=== PATIENT | male | born 1945 | race Caucasian/White ===

== ENCOUNTER 2019-07-02 12:29 | Emergency (ER) | payer OTHER, BC ==
[2019-07-02 13:08] VITALS: BP 178/90; PULSE 95; TEMP 98.3; BMI 32.4
--- NOTE | 2019-07-02 13:37 | PDOC ---
History of Present Illness - General Chief Complaint: Injury Stated Complaint: LEG INJURY Time Seen by Provider: 07/02/19 12:30 - History of Present Illness Initial Comments: 07/02/19 13:35 74yo M hx HTN, HL, DM, emphysema, asthma, hip replacement b/l, CAD s/p stent presents to the ED c/o injury to L leg. Pt sustained injury after closing the car door accidentally on his leg 30 mins [employer]. Pain is "throbbing." No treatments tried. No other injuries. No fall. Wound is not actively bleeding after pt placed pressure. Pt takes plavix. Does not remember last tdap. PT was otherwise in his [facility], denies recent fevers, chills, CP, SOB, weakness, dizziness, numbness, N/V/D, abd pain, urinary sxs. Past History - Past Medical History Allergies/Adverse Reactions: Allergies Allergy/AdvReac Type Severity Reaction Status Date / Time Penicillins Allergy Intermediate Hives Verified 07/02/19 12:57 Home Medications: Ambulatory Orders Albuterol Sulfate [Proair Hfa] 8.5 gm IH TID PRN 07/02/19 Allopurinol [Zyloprim -] 300 mg PO HS 07/02/19 Atorvastatin Ca [Lipitor] 40 mg PO HS 07/02/19 Budesonide [Pulmicort Flexhaler] 90 mcg IH BID 07/02/19 Clopidogrel Bisulfate [Clopidogrel] 75 mg PO DAILY 07/02/19 Dapagliflozin Propanediol [Farxiga] 20 mg PO DAILY 07/02/19 Dulaglutide [Trulicity] 1.5 mg SQ WEEKLY 07/02/19 Fluticasone/Salmeterol [Advair 250-50 Diskus] 1 each IH DAILY 07/02/19 Metoprolol Succinate [Toprol Xl -] 50 mg PO HS 07/02/19 Montelukast Na [Singulair -] 10 mg PO HS 07/02/19 Nifedipine [Procardia Xl] 30 mg PO DAILY 07/02/19 Quinapril HCl 20 mg PO HS 07/02/19 Sulfamethoxazole/Trimethoprim [Bactrim Ds Tablet] 1 each PO BID #20 tablet 07/02 Theophylline Anhydrous 150 mg PO BID 07/02/19 Torsemide [Demadex] 20 mg PO DAILY 07/02/19 Cardiac Disorders: Yes (cardiac stentx1) COPD: Yes Diabetes: Yes HTN: Yes Hypercholesterolemia: Yes Kidney Stones: Yes - Surgical History Cardiac Surgery: Yes (STENT X1) Orthopedic Surgery: Yes - Suicide/Smoking/Psychosocial Hx Smoking History: Former smoker Have you smoked in the past 12 months: No If you are a former smoker, when did you quit?: 1991 Information on smoking cessation initiated: No Hx Alcohol Use: No Drug/Substance Use Hx: No Review of Systems - Review of Systems Comments:: 07/02/19 13:44 GENERAL/CONSTITUTIONAL: No fever or chills. No weakness. HEAD, EYES, EARS, NOSE AND THROAT: No change in vision. No ear pain or discharge. No sore throat. GASTROINTESTINAL: No nausea, vomiting, diarrhea or constipation. GENITOURINARY: No dysuria, frequency, or change in urination. CARDIOVASCULAR: No chest pain or shortness of breath. RESPIRATORY: No cough, wheezing, or hemoptysis. MUSCULOSKELETAL: +injury to L leg. No neck or back pain. SKIN: No rash NEUROLOGIC: No headache, vertigo, loss of consciousness, or change in strength/ sensation. ENDOCRINE: No increased thirst. No abnormal weight change. HEMATOLOGIC/LYMPHATIC: No anemia, easy bleeding, or history of blood clots. ALLERGIC/IMMUNOLOGIC: No hives or skin allergy. *Physical Exam - Vital Signs Last Vital Signs Temp Pulse Resp BP Pulse Ox 98.3 F 95 H 18 178/90 H 95 07/02/19 12:30 07/02/19 12:30 07/02/19 12:30 07/02/19 12:30 07/02/19 12:30 - Physical Exam Comments: 07/02/19 13:45 GENERAL: Awake, alert, and fully oriented, in no acute distress HEAD: No signs of trauma EYES: EOMI, sclera anicteric, conjunctiva clear ENT: Oropharynx clear without exudates. Moist mucosa LUNGS: Breath sounds equal, clear to auscultation bilaterally. No wheezes, and no crackles HEART: Regular rate and rhythm, normal S1 and S2, no murmurs, rubs or gallops ABDOMEN: Soft, nontender, normoactive bowel sounds. No guarding, no rebound. No masses EXTREMITIES: Normal range of motion, no edema. No clubbing or cyanosis. No cords, erythema, or tenderness. No deformities. 2+ DP pulses and TP pulses in LE b/l. Compartments soft in LLE NEUROLOGICAL: Normal speech, cranial nerves intact, 5/5 strength dorsi and plantar flexion of L foot. Normal sensation to LLE. SKIN: Anteriorolateral distal lower extremity with 6.5cm linear superficial vertical laceration, poorly approximated due to tension, hemostatic, clean. Procedures - Laceration/Wound Repair Left Anterior Lateral Leg Wound Length: 5.0 to 7.5 cm Wound Explored: clean Wound's Depth, Shape: linear Irrigated w/ Saline: Yes Anesthesia: 1% Lidocaine Amount of Anesthetic (ccs): 10 Wound Debrided: minimal Wound Repaired With: Sutures Suture Size/Type: 4:0 Number of Sutures: 1 (Running locked suture, used 2 sets of suture due to length of laceration) Layer Closure: No Sterile Dressing Applied: Yes Splint Applied: No Sling Applied: No Medical Decision Making - Medical Decision Making 07/02/19 13:54 74yo M prsents to the ED with LLE laceration 2/2 closing car door on leg LLE is NVI with soft compartments Plan for XR to r/o FB, wound irrigation and laceration repair tdap will be updated 07/02/19 16:24 XR negative for FB Laceration irrigated copiously under pressure 10cc of 1% lidocaine given SQ for local anesthesia Wound was poorly approximated under tension, as such a running locking stitch was applied with good approximation bacitracin applied, wound dressed with gauze and tape Pt to return in 10 days for suture removal He is clinically stable for DC home I discussed the physical exam findings, ancillary test results and final diagnoses with the patient. I answered all of the patient's questions. The patient was satisfied with the care received and felt comfortable with the discharge plan and treatment plan. The patient will call their primary care physician within 24 hours to arrange follow-up and will return to the Emergency Department with any new, persistent or worsening symptoms. *DC/Admit/Observation/Transfer Diagnosis at time of Disposition: Laceration, Leg injury, Trauma - Discharge Dispostion Disposition: HOME Condition at time of disposition: Good Decision to Admit order: No - Prescriptions Prescriptions: Sulfamethoxazole/Trimethoprim [Bactrim Ds Tablet] 1 each PO BID #20 tablet - Referrals Referrals: Rodrigo Harvey MD [Primary Care Provider] - - Patient Instructions Printed Discharge Instructions: DI for Laceration Repair, DI for Laceration Repair -- Complex Suture Additional Instructions: Return in 10 days for suture removal Take the antibiotics as prescribed Keep the incision clean and dry for 24 hours. After 24 hours, you may allow the soap and water to rinse off your incision. Avoid direct pressure of the water to the incision. Pat the incision dry with a clean clothe. Apply a small amount of bacitracin onto the incision. Cover the incision loosely with some gauze and tape Take tylenol as needed for pain. Return to the ER if you notice red streaks, increase redness/swelling/severe pain to the incision. - Post Discharge Activity - Attestations Physician Attestion: 07/02/19 16:37 I, Dr. Charles Arvizu MD, attest that this document has been prepared under my direction and personally reviewed by me in its entirety. I further attest, that it accurately reflects all work, treatment, procedures and medical decision -making performed by me.
[2019-07-02] MEDS ORDERED: DIPHTH,PERTUSS(ACELL),TET 0.5 ML DISP.SYRIN IM ONE ×2 (13:43→13:50)
[2019-07-02] MEDS ORDERED: LIDOCAINE HCL 1%, 10 MG/ML (20ML VIAL) ONE (15:13)
== END 2019-07-02 16:50 | disposition home or self-care (01) ==
LOC: FER 12:29
PROC: 0HQLXZZ Repair Left Lower Leg Skin, External Approach (ICD-10-PCS; principal; 2019-07-02)
PROC: 3E0234Z Introduction of Serum, Toxoid and Vaccine into Muscle, Percutaneous Approach (ICD-10-PCS; 2019-07-02)
DX: S81.812A Laceration without foreign body, left lower leg, initial encounter (principal); S89.92XA Unspecified injury of left lower leg, initial encounter; I10 Essential (primary) hypertension; I25.10 Atherosclerotic heart disease of native coronary artery without angina pectoris; E78.5 Hyperlipidemia, unspecified; E11.9 Type 2 diabetes mellitus without complications; J43.9 Emphysema, unspecified; J45.909 Unspecified asthma, uncomplicated; Z96.643 Presence of artificial hip joint, bilateral; Z95.5 Presence of coronary angioplasty implant and graft; Z87.891 Personal history of nicotine dependence; Z88.0 Allergy status to penicillin; W23.0XXA Caught, crushed, jammed, or pinched between moving objects, initial encounter; Y93.89 Activity, other specified; Y92.9 Unspecified place or not applicable
CPT/HCPCS: 73590-TC-LT-FY; 90715; 99282-25

== ENCOUNTER 2019-07-17 17:28 | Emergency (ER) | payer OTHER, BC ==
[2019-07-17 17:43] VITALS: BP 146/81; PULSE 104; TEMP 98; BMI 34.5
--- NOTE | 2019-07-17 18:37 | PDOC ---
Documentation entered by Cholo Bassett SCRIBE, acting as scribe for Jaguar Macedo MD. Jaguar Macedo MD: This documentation has been prepared by the Danyelle anderson Xhesika, SCRIBE, under my direction and personally reviewed by me in its entirety. I confirm that the documentation accurately reflects all work, treatment, procedures, and medical decision making performed by me. History of Present Illness - General Chief Complaint: Injury Stated Complaint: SLICED TIP OF RIGHT RING FINGER History Source: Patient Exam Limitations: No Limitations - History of Present Illness Initial Comments: 07/17/19 18:32 The patient is a 74 year old male with a significant PMH of HTN, HL, DM, emphysema, asthma, b/l hip replacement, CAD s/p stent who presents to the emergency department for R hand 4th digit laceration since 7:30AM. Patient states he was cutting eggplants and sliced the top of his finger off. The patient notes he applied pressure to his finger and wrapped it, however, it has not stopped bleeding. Patient notes he is on plavix. Patient notes he had his tetanus booster 07/02/19. The patient denies chest pain, shortness of breath, headache and dizziness. Allergies: NKDA Surgical History: cardiac stent x1 PCP: Guillaume Bond Past History - Past Medical History Allergies/Adverse Reactions: Allergies Allergy/AdvReac Type Severity Reaction Status Date / Time Penicillins Allergy Intermediate Hives Verified 07/17/19 17:30 Home Medications: Ambulatory Orders Albuterol Sulfate [Proair Hfa] 8.5 gm IH TID PRN 07/02/19 Allopurinol [Zyloprim -] 300 mg PO HS 07/02/19 Atorvastatin Ca [Lipitor] 40 mg PO HS 07/02/19 Budesonide [Pulmicort Flexhaler] 90 mcg IH BID 07/02/19 Clopidogrel Bisulfate [Clopidogrel] 75 mg PO DAILY 07/02/19 Dapagliflozin Propanediol [Farxiga] 20 mg PO DAILY 07/02/19 Dulaglutide [Trulicity] 1.5 mg SQ WEEKLY 07/02/19 Fluticasone/Salmeterol [Advair 250-50 Diskus] 1 each IH DAILY 07/02/19 Metoprolol Succinate [Toprol Xl -] 50 mg PO HS 07/02/19 Montelukast Na [Singulair -] 10 mg PO HS 07/02/19 Nifedipine [Procardia Xl] 30 mg PO DAILY 07/02/19 Quinapril HCl 20 mg PO HS 07/02/19 Sulfamethoxazole/Trimethoprim [Bactrim Ds Tablet] 1 each PO BID #20 tablet 07/02 Theophylline Anhydrous 150 mg PO BID 07/02/19 Torsemide [Demadex] 20 mg PO DAILY 07/02/19 Cardiac Disorders: Yes (cardiac stentx1) COPD: Yes Diabetes: Yes HTN: Yes Hypercholesterolemia: Yes Kidney Stones: Yes - Surgical History Cardiac Surgery: Yes (STENT X1) Orthopedic Surgery: Yes - Immunization History Immunization Up to Date: Yes - Psycho Social/Smoking Cessation Hx Smoking History: Former smoker Have you smoked in the past 12 months: No If you are a former smoker, when did you quit?: 27 YEARS Information on smoking cessation initiated: No Hx Alcohol Use: No Drug/Substance Use Hx: No Review of Systems - Review of Systems Able to Perform ROS?: Yes Comments:: 07/17/19 18:33 GENERAL/CONSTITUTIONAL: No fever or chills. No weakness. HEAD, EYES, EARS, NOSE AND THROAT: No change in vision. No ear pain or discharge. No sore throat. CARDIOVASCULAR: No chest pain or shortness of breath. RESPIRATORY: No cough, wheezing, or hemoptysis. GASTROINTESTINAL: No nausea, vomiting, diarrhea or constipation. GENITOURINARY: No dysuria, frequency, or change in urination. MUSCULOSKELETAL: + R hand 4th digit laceration. No joint or muscle swelling or pain. No neck or back pain. SKIN: No rash NEUROLOGIC: No headache, vertigo, loss of consciousness, or change in strength/ sensation. ENDOCRINE: No increased thirst. No abnormal weight change. HEMATOLOGIC/LYMPHATIC: No anemia, easy bleeding, or history of blood clots. ALLERGIC/IMMUNOLOGIC: No hives or skin allergy. *Physical Exam - Vital Signs Last Vital Signs Temp Pulse Resp BP Pulse Ox 98 F 104 H 18 146/81 96 07/17/19 17:30 07/17/19 17:30 07/17/19 17:30 07/17/19 17:30 07/17/19 17:30 - Physical Exam Comments: 07/17/19 18:33 GENERAL: Awake, alert, and fully oriented, in no acute distress LUNGS: Breath sounds equal, clear to auscultation bilaterally. No wheezes, and no crackles HEART: Regular rate and rhythm, normal S1 and S2, no murmurs, rubs or gallops ABDOMEN: Soft, nontender, normoactive bowel sounds. No guarding, no rebound. No masses EXTREMITIES: + degloved R hand 4th distal finger. + active bleeding. Normal range of motion, no edema. No clubbing or cyanosis. No cords, erythema, or tenderness NEUROLOGICAL: Cranial nerves II through XII grossly intact. Normal speech, normal gait SKIN: Warm, Dry, normal turgor, no rashes Medical Decision Making - Medical Decision Making 07/17/19 18:27 Patient's R hand 4th distal finger was cleaned. Surgicel and pressure dressing was placed on finger. Discharge - Discharge Information Problems reviewed: Yes Clinical Impression/Diagnosis: Laceration Condition: Improved Disposition: HOME - Admission No - Additional Discharge Information Prescription Drug Monitoring Program (I-STOP) results: I-STOP reviewed and no issues identified - Follow up/Referral Referrals: Guillaume Orta [Primary Care Provider] - - Patient Discharge Instructions Patient Printed Discharge Instructions: DI for Laceration Repair Additional Instructions: Clean and dry, change dressing if wet or dirty, otherwise wound check here in the ER by July 21 - Post Discharge Activity
== END 2019-07-17 18:40 | disposition home or self-care (01) ==
LOC: FER 17:28
PROC: 0HQFXZZ Repair Right Hand Skin, External Approach (ICD-10-PCS; principal; 2019-07-17)
DX: S61.214A Laceration without foreign body of right ring finger without damage to nail, initial encounter (principal); Z87.891 Personal history of nicotine dependence; Z95.5 Presence of coronary angioplasty implant and graft; E78.00 Pure hypercholesterolemia, unspecified; E11.9 Type 2 diabetes mellitus without complications; I10 Essential (primary) hypertension; N20.0 Calculus of kidney; Z88.0 Allergy status to penicillin; I25.10 Atherosclerotic heart disease of native coronary artery without angina pectoris; W26.0XXA Contact with knife, initial encounter; Y93.G1 Activity, food preparation and clean up; Y92.000 Kitchen of unspecified non-institutional (private) residence as the place of occurrence of the external cause
CPT/HCPCS: 12001-25; 99282-25

== ENCOUNTER 2019-07-21 10:24 | Emergency (ER) | payer OTHER, BC ==
--- NOTE | 2019-07-21 10:50 | PDOC ---
*Physical Exam - Physical Exam Comments: 07/21/19 10:44 GENERAL: The patient is awake, alert, and fully oriented, in no acute distress. HEAD: Normal with no signs of trauma. EYES: Pupils equal, round and reactive to light, extraocular movements intact, sclera anicteric, conjunctiva clear. EXTREMITIES: Right hand: Fourth digit with bandage in place, removed exposing 1 cm distal fingertip superficial avulsion with involvement of the distal nail but not the nailbed, still fresh wound but without any active bleeding, some coagulated blood in place. Neurovascularly intact, range of motion is intact. There is no evidence of cellulitis or swelling. NEUROLOGICAL: Normal speech, normal gait. PSYCH: Normal mood, normal affect. SKIN: Warm, Dry, normal turgor, no rashes or lesions noted. Medical Decision Making - Medical Decision Making 07/21/19 10:46 74-year-old male on Plavix resents for wound check of right fourth digit distal fingertip superficial avulsion sustained on 07/17, seen in the emergency department at that time and Surgicel dressing applied, presented for wound check as instructed. No complaints of bleeding beyond the first day, no complaints of swelling or erythema or fevers or chills or pain. Maintain original dressing until today. Patient is well-appearing and vital signs are normal, well-appearing wounds without evidence of infection or neurovascular compromise. Xeroform dressing applied, gauze bandage placed, patient will continue to monitor with every 72 hour dressing changes. Understands return criteria. Discharge - Discharge Information Problems reviewed: Yes Clinical Impression/Diagnosis: Encounter for post-traumatic wound check Condition: Good Disposition: HOME - Follow up/Referral Referrals: Rodrigo Harvey MD [Primary Care Provider] - - Patient Discharge Instructions Patient Printed Discharge Instructions: DI for Avulsion Laceration (Not Requiring Sutures) Additional Instructions: Activity as tolerated. Stay hydrated. Maintain current dressing for 2 to 3 days , then perform dressing changes every 2 days with bacitracin. If the wound remains fresh/wet, use Xeroform as provided directly on the wound. Keep the wound clean and dry without soaking or scrubbing. Continue your medications as previously prescribed by your physician. You should follow up with your primary doctor as needed regarding today's emergency department visit. Return to the emergency department for any new or concerning symptoms, particularly persistent bleeding or pain, redness or swelling or pus, fevers or chills. - Post Discharge Activity
[2019-07-21 10:54] VITALS: BP 130/70; PULSE 89; TEMP 98; BMI 33.5
== END 2019-07-21 10:54 | disposition home or self-care (01) ==
LOC: FER 10:24
DX: Z48.00 Encounter for change or removal of nonsurgical wound dressing (principal)
CPT/HCPCS: 99281-25

== ENCOUNTER 2019-10-29 15:21 | Inpatient (IN) | payer OTHER, BC ==
[2019-10-29] MEDS ORDERED: SODIUM CHLORIDE IV ONE (15:49)
[2019-10-29] MEDS ORDERED: ACETAMINOPHEN INJECTION 100 ML IVPB ONE (16:15)
[2019-10-29] MEDS ORDERED: ACETAMINOPHEN 1000 MG/100 ML VIAL (NON FORMULARY) IVPB ONE (16:24)
[2019-10-29] MEDS ORDERED: AZITHROMYCIN IVPB 500 MG in DEXTROSE 5%-WATER - 250 ML IVPB ONE (16:24)
[2019-10-29] MEDS ORDERED: AZTREONAM 1 GM in DEXTROSE 5%-WATER - 50 ML IVPB ONE (16:26)
[2019-10-29] MEDS ORDERED: SODIUM CHLORIDE 0.9% 1000 ML INFUS.BAG IV ONE (16:27)
[2019-10-29] MEDS ORDERED: MAGNESIUM SULF 50% (8.12 MEQ/2 ML-1 GM VIAL) IVPB ONE (16:28)
[2019-10-29] MEDS ORDERED: MAGNESIUM 1GM/D5W - 1 GM/100 ML IVPB IVPB ONE (16:39)
[2019-10-29] MEDS ORDERED: AZITHROMYCIN IVPB 500 MG/250 ML BAG IVPB ONE (16:39)
[2019-10-29] MEDS ORDERED: AZTREONAM 1 GM VIAL (RESTRICTED TO ID) ONE (16:39)
--- NOTE | 2019-10-29 16:45 | PDOC ---
History of Present Illness - General Chief Complaint: Nausea/Vomiting Stated Complaint: SOB/N/V Time Seen by Provider: 10/29/19 15:51 History Source: Patient Exam Limitations: No Limitations - History of Present Illness Initial Comments: Vince Queen is a 74 yo M w a hx of HTN, HL, CAD s/p stent > 10 years ago, NIDDM, emphysema, asthma, and b/l hip replacement presents to the [facility] er [facility] with increased sputum production, cough, left sided chest pain, shortness of breath, difficulty breathing, fevers and chills. The patient states he alwyas has a cough 2/2 his emphysema but it became productive of rust colored sputum over the course of the past 2 days. Today he became short of breath and developed a fever. Once he started experiencing diffuse myalgias and intense chills he decided it was too much and he needed to come into the hospital to be evaluated. Patient states he has been feeling nauseous today and experienced 3 episodes of NBNB vomitus. Patient denies recent travel, surgeries, wheezing, home nebs, abdominal pain, diaphoresis, lightheadedness PCP: Dr. Harvey PSH: Stent, b/l hip replacement Social Hx: Lives at home with who helps him out with his ADL Allergies: Penicillins unsure what happens after he takes it, but has known he' s been allergic for years. Past History - Past Medical History Allergies/Adverse Reactions: Allergies Allergy/AdvReac Type Severity Reaction Status Date / Time Penicillins Allergy Intermediate Hives Verified 07/17/19 17:30 Home Medications: Ambulatory Orders Albuterol Sulfate [Proair Hfa] 8.5 gm IH TID PRN 07/02/19 Allopurinol [Zyloprim -] 300 mg PO HS 07/02/19 Atorvastatin Ca [Lipitor] 40 mg PO HS 07/02/19 Budesonide [Pulmicort Flexhaler] 90 mcg IH BID 07/02/19 Clopidogrel Bisulfate [Clopidogrel] 75 mg PO DAILY 07/02/19 Dapagliflozin Propanediol [Farxiga] 20 mg PO DAILY 07/02/19 Dulaglutide [Trulicity] 1.5 mg SQ WEEKLY 07/02/19 Fluticasone/Salmeterol [Advair 250-50 Diskus] 1 each IH DAILY 07/02/19 Metoprolol Succinate [Toprol Xl -] 50 mg PO HS 07/02/19 Montelukast Na [Singulair -] 10 mg PO HS 07/02/19 Nifedipine [Procardia Xl] 30 mg PO DAILY 07/02/19 Quinapril HCl 20 mg PO HS 07/02/19 Sulfamethoxazole/Trimethoprim [Bactrim Ds Tablet] 1 each PO BID #20 tablet 07/02 Theophylline Anhydrous 150 mg PO BID 07/02/19 Torsemide [Demadex] 20 mg PO DAILY 07/02/19 Cardiac Disorders: Yes (cardiac stentx1) COPD: Yes Diabetes: Yes HTN: Yes Hypercholesterolemia: Yes Kidney Stones: Yes - Surgical History Cardiac Surgery: Yes (STENT X1) Orthopedic Surgery: Yes - Immunization History TDAP Vaccination: Yes (07/17/2018) Immunization Up to Date: Yes - Psycho Social/Smoking Cessation Hx Smoking History: Former smoker Have you smoked in the past 12 months: No If you are a former smoker, when did you quit?: 1991 Information on smoking cessation initiated: No Hx Alcohol Use: No Drug/Substance Use Hx: No Review of Systems - Review of Systems Able to Perform ROS?: Yes Comments:: CONSTITUTIONAL: Present: Fever, chills, fatigue EYES: Absent: visual changes ENT: Absent: ear pain, no sore throat CARDIOVASCULAR: Present: Chest pain Absent: no palpitations RESPIRATORY: Present: Cough, SOB Absent: wheezing, hemoptysis GI: Present: Nausea, vomiting Absent: abdominal pain, no constipation, no diarrhea GENITOURINARY: Absent: dysuria, no frequency, no hematuria MUSKULOSKELETAL: Present: Myalgia Absent: back pain, no arthralgia SKIN: Absent: rash NEURO: Absent: headache *Physical Exam - Vital Signs Last Vital Signs Temp Pulse Resp BP Pulse Ox 102.7 F H 134 H 34 H 150/72 88 L 10/29/19 15:49 10/29/19 15:49 10/29/19 15:25 10/29/19 15:25 10/29/19 15:25 - Physical Exam GENERAL: Moderate distress. Well-nourished. No apparent distress. HEENT: Normocephalic, atraumatic. PERRL, EOM intact. CARDIOVASCULAR: Tachycardic rate. Normal S1, S2. Irregular rhythm. PULMONARY: Clear evidence of respiratory distress. Focal mid crackles in the left lung. No wheezes or rhonchi. ABDOMEN: Soft, non-distended, non-tender. EXTREMITIES: There is 1+ edema in both lower extremities. Limited ROM in all four extremities. SKIN: Warm, dry. Left lower anterior leg is erythematous and edematous. NEUROLOGICAL: No focal neurological deficits. ED Treatment Course - LABORATORY CBC & Chemistry Diagram: 10/29/19 16:00 10/29/19 16:00 - Medications Given in the ED: ED Medications Discontinued Medications Generic Name Dose Route Start Last Admin Trade Name Massiel PRN Reason Stop Dose Admin Acetaminophen 1,000 mg 10/29/19 16:24 10/29/19 16:35 Ofirmev Injection - IVPB 10/29/19 16:25 1,000 mg ONCE ONE Administration Medical Decision Making - Medical Decision Making Vince Queen is a 74 yo M w a hx of HTN, HL, CAD s/p stent > 10 years ago, NIDDM, emphysema, asthma, and b/l hip replacement presents to the [facility] er [facility] with increased sputum production, cough, left sided chest pain, shortness of breath, difficulty breathing, fevers and chills. The patient states he alwyas has a cough 2/2 his emphysema but it became productive of rust colored sputum over the course of the past 2 days. Today he became short of breath and developed a fever. Once he started experiencing diffuse myalgias and intense chills he decided it was too much and he needed to come into the hospital to be evaluated. Patient states he has been feeling nauseous today and experienced 3 episodes of NBNB vomitus. Patient denies recent travel, surgeries, wheezing, home nebs, abdominal pain, diaphoresis, lightheadedness Vital Signs Temp Pulse Resp BP Pulse Ox 102.7 F H 92 H 34 H 150/72 94 L 10/29/19 15:49 10/29/19 17:00 10/29/19 15:25 10/29/19 15:25 10/29/19 17:00 DDx IBNLT: PNA, ACS, parapnemonic effusion/empyema, COPD exacerbation, electrolyte/metabolic disturbance, Heart failure Plan: ED sepsis workup, BiPap, Abx, EKG, CXR, POCUS chest, Gentle IV hydration, Admit to Tele vs ICU EKG: Sinus tachycardia rate of 137, frequent and consecutive PVC's, Narrow complexes, prolonged QTc at 600, normal axis, no hypertrophy, no ST elevations or depressions POCUS Heart: Hyperdynamic, no focal wall motion abnormalities, trace small pericardial effusion, normal LV/RV ratio IVC: relatively flat, collapses with each respiration LUNGS: There are focal B-lines in the mid left lobe, nowehre else. no pleural effusion. Normal lung sliding b/l - Placing patient on BiPap for respiratory distress - Abx for PNA - Tylenol for fever and support CXR: Left Basilar consolidation consistent with PNA Labs: Leukocytosis with left shift. Flu negative. Lactic acidosis + JUDY. Disposition: Admit to Telemetry Repeat EKG - QTc 458 Discharge - Discharge Information Problems reviewed: Yes Clinical Impression/Diagnosis: Pneumonia Qualifiers: Pneumonia type: due to unspecified organism Laterality: left Lung location: lower lobe of lung Qualified Code(s): J18.9 - Pneumonia, unspecified organism Condition: Stable - Admission Yes - Follow up/Referral - Patient Discharge Instructions - Post Discharge Activity
[2019-10-29 16:53] LABS: BASO % 0.2 % (0-2.0); EOS % 0.1 % (0-4.5); HEMATOCRIT 50.4 % (35.4-49); HEMOGLOBIN 16.4 GM/dL (11.7-16.9); LYMPH % 4.2 % (8-40); MCH 29.9 pg (25.7-33.7); MCHC 32.6 g/dl (32.0-35.9); MEAN CELL VOLUME 91.6 fl (80-96); MEAN PLT VOLUME 9.9 fl (7.5-11.1); MONO % 1.4 % (3.8-10.2); NEUT % 94.1 % (42.8-82.8); PLATELET COUNT 225 K/MM3 (134-434); RDW 15.1 % (11.9-15.9); WHITE BLOOD COUNT 13.2 K/mm3 (4.0-10.0)
[2019-10-29 16:57] LABS: VENOUS PC02 43.1 mmHg (38-52); VENOUS PH 7.34 (7.31-7.41)
[2019-10-29 16:58] LABS: VENOUS PO2 < 49 mmHg (28-48)
[2019-10-29 17:06] LABS: INR 0.99 (0.83-1.09); PROTHROMBIN TIME (PATIENT) 11.7 SEC (9.7-13.0)
[2019-10-29 17:09] LABS: ACTIVATED PTT 26.6 SECONDS (25.2-36.5)
[2019-10-29 17:16] LABS: ALBUMIN 4.2 g/dl (3.4-5.0); BILIRUBIN,TOTAL 1.6 mg/dL (0.2-1); BLOOD UREA NITROGEN 20.9 mg/dL (7-18); CALCIUM 10.1 mg/dL (8.5-10.1); CREATININE 1.5 mg/dL (0.55-1.3); POTASSIUM 4.1 mmol/L (3.5-5.1); TOT PROT 7.5 g/dl (6.4-8.2)
--- NOTE | 2019-10-29 17:25 | PDOC ---
Attending Attestation - Resident Resident Name: Stewart Mcmahon - ED Attending Attestation I have performed the following: I have examined & evaluated the patient, The case was reviewed & discussed with the resident, I agree w/resident's findings & plan, Exceptions are as noted - HPI HPI: 10/29/19 17:19 74yo male with cad, htn, dm, hld with cough-green sputum, n/v/d today, rhinorrhea, congestion, sob, hypoxia. Pt presents on a NRB hypoxic. Pt arrives febrile, tachy, tachypnic. pt with conversational dyspnea, congestion L chest. Pt also missed 2 days of lasix. Has been with his 8m old grandson. Pt denies abd pain. Pt denies dysuria. - Physicial Exam PE: 10/29/19 17:23 gen: aaox3, conversational dyspnea, tachy, tachypnic, congested heart: +s1s2 tachy lungs: crackles, rhonchi L middle lung otherwise clear, tachypnic abd: soft, nt/nd +bs ext: 1+pitting edema to le, chronic venous stasis changes on LLE, no warmth, mild erythema that the states is neg - Medical Decision Making 10/29/19 17:25 a/p: 74yo male with tachynea, tachy, coarse bs L middle lung -concern for pna -tylenol, ivf hydration, abx ordered -pt placed on bipap for support as pt was hypoxic -will send labs, cultures, flu -will need admission 10/29/19 17:27 pt improved with bipap hr improved to 92 pulse ox 94% on bipap abx ordred elevated wbc flu neg trop neg microblog sent to [facility] for admission for pna infltrate on cxr 10/29/19 17:32 pt with elevated lactate ivf hydraiton running suspect lactic acidosis from work of breathing from tachypnea/resp distress will repeat lactate 10/29/19 17:58 case discussed with IM resident from [facility] who accepts pt to service Heart Score/ECG Review - ECG Intrepretation Comment:: 10/29/19 17:28 sinus tach at 137, multiple pvc, poor r wave progression, qtc 600, abnl ekg
[2019-10-29 17:43] LABS: MAGNESIUM 1.9 mg/dL (1.8-2.4); PHOSPHOROUS 2.9 mg/dL (2.5-4.9)
[2019-10-29 17:58] LABS: N-TERMINAL BNP 52.7 pg/ml (5-125)
[2019-10-29] MEDS ORDERED: SODIUM CHLORIDE 0.9% 500 ML INFUS.BAG IV ONE (18:11)
--- NOTE | 2019-10-29 18:49 | HP ---
CHIEF COMPLAINT: sob, fever PCP: Dr. Daina Harvey HISTORY OF PRESENT ILLNESS: Patient is a 75 yo M with a PMhx of HTN, HL, CAD s/p stent > 10 years ago, PVCs, NIDDM, emphysema, asthma, and b/l hip replacement, presenting with worsening cough with increasing green/yellow sputum production for the last 3 days. He says he has a chronic cough because of his emphysema but much worse in the last few days. The day he got sick he was baby sitting his grandchild who had cold like symptoms. Patient presented to the ED in respiratory distress, hypoxic, and was placed on bipap. Patient also endorses fevers and chills. Denies nausea, vomiting, dizziness, hemoptysis, urinary symptoms, diarrhea, recent travel. ER course was notable for: (1) HR 140's, febrile 102.7 (2) CXR: L basilar consolidation (3) Iv abx: Aztreonam (penicillin allergy), Azithromycin Recent Travel: denies PAST MEDICAL HISTORY: per hpi PAST SURGICAL HISTORY: b/l hip replacement Social History: Smoking: denies. former smoker Alcohol: denies Drugs: denies Allergies Penicillins Allergy (Intermediate, Verified 07/17/19 17:30) Hives HOME MEDICATIONS: Home Medications Medication Instructions Recorded Albuterol Sulfate [Proair Hfa] 8.5 gm IH TID PRN 07/02/19 Allopurinol [Zyloprim -] 300 mg PO HS 07/02/19 Atorvastatin Ca [Lipitor] 40 mg PO HS 07/02/19 Budesonide [Pulmicort Flexhaler] 90 mcg IH BID 07/02/19 Clopidogrel Bisulfate [Clopidogrel] 75 mg PO DAILY 07/02/19 Dapagliflozin Propanediol [Farxiga] 20 mg PO DAILY 07/02/19 Dulaglutide [Trulicity] 1.5 mg SQ WEEKLY 07/02/19 Fluticasone/Salmeterol [Advair 1 each IH DAILY 07/02/19 250-50 Diskus] Metoprolol Succinate [Toprol Xl -] 50 mg PO HS 07/02/19 Montelukast Na [Singulair -] 10 mg PO HS 07/02/19 Nifedipine [Procardia Xl] 30 mg PO DAILY 07/02/19 Quinapril HCl 20 mg PO HS 07/02/19 Sulfamethoxazole/Trimethoprim 1 each PO BID #20 tablet 07/02/19 [Bactrim Ds Tablet] Theophylline Anhydrous 150 mg PO BID 07/02/19 Torsemide [Demadex] 20 mg PO DAILY 07/02/19 REVIEW OF SYSTEMS per HPI PHYSICAL EXAMINATION Vital Signs - 24 hr 10/29/19 10/29/19 10/29/19 15:22 15:25 15:49 Temperature 102.7 F H 102.7 F H Pulse Rate 138 H 134 H Respiratory 34 H Rate Blood Pressure 150/72 O2 Sat by Pulse 88 L 88 L Oximetry (%) 10/29/19 10/29/19 10/29/19 17:00 17:47 17:51 Temperature Pulse Rate 92 H Respiratory Rate Blood Pressure O2 Sat by Pulse 94 L 96 98 Oximetry (%) GENERAL: a/o x 3, in NAD, comfortable on bipap HEAD: Normal with no signs of trauma. EYES: Pupils equal, round and reactive to light, extraocular movements intact EARS, NOSE, THROAT:oropharynx clear without exudates. NECK: supple without lymphadenopathy, JVD, or masses. LUNGS: course rhonchi HEART: tachy, regular rhythm ABDOMEN: Soft, nontender, not distended, normoactive bowel sounds LOWER EXTREMITIES: 2+ pulses. + edema b/l NEUROLOGICAL: Cranial nerves II-XII intact Laboratory Results - last 24 hr 10/29/19 10/29/19 10/29/19 16:00 16:00 16:00 WBC RBC Hgb Hct MCV MCH MCHC RDW Plt Count MPV Absolute Neuts (auto) Neutrophils % Lymphocytes % Monocytes % Eosinophils % Basophils % Nucleated RBC % PT with INR 11.70 INR 0.99 PTT (Actin FS) 26.6 VBG pH POC VBG pCO2 POC VBG pO2 VBG HCO3 VBG O2 Sat (Christina) VBG Base Excess Sodium Potassium Chloride Carbon Dioxide Anion Gap BUN Creatinine Est GFR (CKD-EPI)AfAm Est GFR (CKD-EPI)NonAf Random Glucose Lactic Acid 4.4 H* Calcium Phosphorus Magnesium Total Bilirubin AST ALT Alkaline Phosphatase Troponin I < 0.02 B-Natriuretic Peptide Total Protein Albumin Influenza A (Rapid) Influenza B (Rapid) 10/29/19 10/29/19 10/29/19 16:00 16:00 16:00 WBC 13.2 H RBC 5.50 Hgb 16.4 Hct 50.4 H MCV 91.6 MCH 29.9 MCHC 32.6 RDW 15.1 Plt Count 225 MPV 9.9 Absolute Neuts (auto) 12.5 H Neutrophils % 94.1 H Lymphocytes % 4.2 L Monocytes % 1.4 L Eosinophils % 0.1 Basophils % 0.2 Nucleated RBC % 0 PT with INR INR PTT (Actin FS) VBG pH 7.34 POC VBG pCO2 43.1 POC VBG pO2 < 49 H VBG HCO3 22.7 L VBG O2 Sat (Christina) 50.5 L VBG Base Excess -2.6 L Sodium 141 Potassium 4.1 Chloride 107 Carbon Dioxide 23 Anion Gap 11 BUN 20.9 H Creatinine 1.5 H Est GFR (CKD-EPI)AfAm 53.14 Est GFR (CKD-EPI)NonAf 45.85 Random Glucose 160 H Lactic Acid Calcium 10.1 Phosphorus 2.9 Magnesium 1.9 Total Bilirubin 1.6 H AST 20 ALT 14 Alkaline Phosphatase 109 Troponin I B-Natriuretic Peptide 52.7 Total Protein 7.5 Albumin 4.2 Influenza A (Rapid) Influenza B (Rapid) 10/29/19 16:20 WBC RBC Hgb Hct MCV MCH MCHC RDW Plt Count MPV Absolute Neuts (auto) Neutrophils % Lymphocytes % Monocytes % Eosinophils % Basophils % Nucleated RBC % PT with INR INR PTT (Actin FS) VBG pH POC VBG pCO2 POC VBG pO2 VBG HCO3 VBG O2 Sat (Christina) VBG Base Excess Sodium Potassium Chloride Carbon Dioxide Anion Gap BUN Creatinine Est GFR (CKD-EPI)AfAm Est GFR (CKD-EPI)NonAf Random Glucose Lactic Acid Calcium Phosphorus Magnesium Total Bilirubin AST ALT Alkaline Phosphatase Troponin I B-Natriuretic Peptide Total Protein Albumin Influenza A (Rapid) Negative Influenza B (Rapid) Negative ASSESSMENT/PLAN: 75 yo M with a PMhx of HTN, HL, CAD s/p stent > 10 years ago, PVCs, NIDDM, emphysema, asthma, and b/l hip replacement, presenting with worsening cough with increasing green/yellow sputum production for the last 3 days. #Acute Hypoxic respiratory failure likely 2/2 Sepsis from PNA -2/2 Sepsis from PNA -patient with hx of Asthma, Emphysema -improved with placement on bipap -wean off bipap to NC -vbg unremarkable -ucx, blood cultures pending -urine legionella, respiratory viral culture -CXR: CXR: L basilar consolidation -IV abx: Start Doxycycline, aztreonam (penicillin allergy) -Given 1x azithromycin but qtc was 600. switched to doxy -IV medrol 60mg q6h -repeat lactic acid -ID consult: Dr Aparicio -gentle hydration #Sepsis 2/2 CAP -read plan above #QTC prolongation -qtc 600. Ekg sinus tach at 137, multiple pvc, poor r wave progression -repeat EKG with 457 qtc -Total 3gms of mag given -avoid qtc prolongation agents -echo #HTN/CAD -cont home meds #DM -ssi #hx of asthma/emphysema -cont home meds #FEN -gentle hydration -monitor -diabetic diet #dvt ppx -hep sq Visit type - Emergency Visit Emergency Visit: Yes ED Registration Date: 10/29/19 Care time: The patient presented to the Emergency Department on the above date and was hospitalized for further evaluation of their emergent condition. - New Patient This patient is new to me today: Yes Date on this admission: 10/29/19 - Critical Care Critical Care patient: No ATTENDING PHYSICIAN STATEMENT I saw and evaluated the patient. I reviewed the resident's note and discussed the case with the resident. I agree with the resident's findings and plan as documented. SUBJECTIVE: OBJECTIVE: ASSESSMENT AND PLAN:
[2019-10-29] MEDS ORDERED: ALBUTEROL SO4 0.083% IH SOL 2.5 MG/3 ML VIAL.NEB. NEB PRN (18:56)
[2019-10-29 19:47] LABS: ANISOCYTOSIS 0; MACROCYTOSIS 0; OVALOCYTE 1+; PLATELET ESTIMATE NORMAL
[2019-10-29] MEDS ORDERED: ALBUTEROL SO4 2.5/IPRATROPIUM 0.5 INH SOL 3 ML VIAL.NEB. NEB ONE (19:49)
[2019-10-29] MEDS: ALBUTEROL SO4 2.5/IPRATROPIUM 0.5 INH SOL 3 ML VIAL.NEB. NEB SCH (19:56)
[2019-10-29] MEDS: SODIUM CHLORIDE 1,000 ML IV SCH (19:56)
--- NOTE | 2019-10-29 21:11 | PN ---
Teaching Attending Note Name of Resident: Gloria Pace ATTENDING PHYSICIAN STATEMENT I saw and evaluated the patient. I reviewed the resident's note and discussed the case with the resident. I agree with the resident's findings and plan as documented. 75 M h/o HTN, HLD, CAD s/p stent > 10 years ago, NIDDM, emphysema, asthma, and b/l hip replacement, presenting with worsening cough with increasing green/ yellow sputum production for the last 3 days. Patient endorses acute on chronic cough, and sputum color changes with today feeling subjective fever and chills w / worsening SOB so he decided to go to ED. In ED pt. found to have increased WOB requiring BiPAP with marked improvement of dyspnea. Endorses feeling much better when on BiPAP, was never intubated, denies recent admissions. ET about 1- 2 flights. Patient endorses remote history of PCN allergy (rash), Aztreonam given in ED, along with Azithromycin, (Qtc prolonged) so switched to Doxycycline and pt. given Mg IV w/ improvement of Qtc to 458ms. PE VSS GA comfortable on BiPAP, speaking in full sentences, sitting upright in stretcher, family at bedside HEENT NC/AT, no nasal flaring, no JVD, neck supple, EOMI Chest distant BS bilaterally, faint bibasilar crackles, no overt wheezing CVS S1, S2+, RRR , soft YOAN+ Abd obese, soft, mildly distended, NT, no guarding Ext slight LE edema b/l, no calf tenderness, moves all 4 extremities Vital Signs - 24 hr 10/29/19 10/29/19 10/29/19 15:22 15:25 15:49 Temperature 102.7 F H 102.7 F H Pulse Rate 138 H 134 H Respiratory 34 H Rate Blood Pressure 150/72 O2 Sat by Pulse 88 L 88 L Oximetry (%) 10/29/19 10/29/19 10/29/19 17:00 17:47 17:51 Temperature Pulse Rate 92 H Respiratory Rate Blood Pressure O2 Sat by Pulse 94 L 96 98 Oximetry (%) Laboratory Results - last 24 hr 10/29/19 10/29/19 10/29/19 16:00 16:00 16:00 WBC RBC Hgb Hct MCV MCH MCHC RDW Plt Count MPV Absolute Neuts (auto) Neutrophils % Neutrophils % (Manual) Band Neutrophils % Lymphocytes % Lymphocytes % (Manual) Monocytes % Monocytes % (Manual) Eosinophils % Eosinophils % (Manual) Basophils % Basophils % (Manual) Myelocytes % (Man) Promyelocytes % (Man) Blast Cells % (Manual) Nucleated RBC % Metamyelocytes Hypochromia Platelet Estimate Polychromasia Poikilocytosis Anisocytosis Microcytosis Macrocytosis Ovalocytes PT with INR 11.70 INR 0.99 PTT (Actin FS) 26.6 VBG pH POC VBG pCO2 POC VBG pO2 VBG HCO3 VBG O2 Sat (Christina) VBG Base Excess Sodium Potassium Chloride Carbon Dioxide Anion Gap BUN Creatinine Est GFR (CKD-EPI)AfAm Est GFR (CKD-EPI)NonAf Random Glucose Lactic Acid 4.4 H* Calcium Phosphorus Magnesium Total Bilirubin AST ALT Alkaline Phosphatase Troponin I < 0.02 B-Natriuretic Peptide Total Protein Albumin Influenza A (Rapid) Influenza B (Rapid) 10/29/19 10/29/19 10/29/19 16:00 16:00 16:00 WBC 13.2 H RBC 5.50 Hgb 16.4 Hct 50.4 H MCV 91.6 MCH 29.9 MCHC 32.6 RDW 15.1 Plt Count 225 MPV 9.9 Absolute Neuts (auto) 12.5 H Neutrophils % 94.1 H Neutrophils % (Manual) 85.6 H Band Neutrophils % 3.1 Lymphocytes % 4.2 L Lymphocytes % (Manual) 7.2 L Monocytes % 1.4 L Monocytes % (Manual) 4 Eosinophils % 0.1 Eosinophils % (Manual) 0.0 Basophils % 0.2 Basophils % (Manual) 0.0 Myelocytes % (Man) 0 Promyelocytes % (Man) 0 Blast Cells % (Manual) 0 Nucleated RBC % 0 Metamyelocytes 0 Hypochromia 0 Platelet Estimate Normal Polychromasia 0 Poikilocytosis 0 Anisocytosis 0 Microcytosis 0 Macrocytosis 0 Ovalocytes 1+ PT with INR INR PTT (Actin FS) VBG pH 7.34 POC VBG pCO2 43.1 POC VBG pO2 < 49 H VBG HCO3 22.7 L VBG O2 Sat (Christina) 50.5 L VBG Base Excess -2.6 L Sodium 141 Potassium 4.1 Chloride 107 Carbon Dioxide 23 Anion Gap 11 BUN 20.9 H Creatinine 1.5 H Est GFR (CKD-EPI)AfAm 53.14 Est GFR (CKD-EPI)NonAf 45.85 Random Glucose 160 H Lactic Acid Calcium 10.1 Phosphorus 2.9 Magnesium 1.9 Total Bilirubin 1.6 H AST 20 ALT 14 Alkaline Phosphatase 109 Troponin I B-Natriuretic Peptide 52.7 Total Protein 7.5 Albumin 4.2 Influenza A (Rapid) Influenza B (Rapid) 10/29/19 16:20 WBC RBC Hgb Hct MCV MCH MCHC RDW Plt Count MPV Absolute Neuts (auto) Neutrophils % Neutrophils % (Manual) Band Neutrophils % Lymphocytes % Lymphocytes % (Manual) Monocytes % Monocytes % (Manual) Eosinophils % Eosinophils % (Manual) Basophils % Basophils % (Manual) Myelocytes % (Man) Promyelocytes % (Man) Blast Cells % (Manual) Nucleated RBC % Metamyelocytes Hypochromia Platelet Estimate Polychromasia Poikilocytosis Anisocytosis Microcytosis Macrocytosis Ovalocytes PT with INR INR PTT (Actin FS) VBG pH POC VBG pCO2 POC VBG pO2 VBG HCO3 VBG O2 Sat (Christina) VBG Base Excess Sodium Potassium Chloride Carbon Dioxide Anion Gap BUN Creatinine Est GFR (CKD-EPI)AfAm Est GFR (CKD-EPI)NonAf Random Glucose Lactic Acid Calcium Phosphorus Magnesium Total Bilirubin AST ALT Alkaline Phosphatase Troponin I B-Natriuretic Peptide Total Protein Albumin Influenza A (Rapid) Negative Influenza B (Rapid) Negative Home Medications Medication Instructions Recorded Albuterol Sulfate [Proair Hfa] 8.5 gm IH TID PRN 07/02/19 Allopurinol [Zyloprim -] 300 mg PO HS 07/02/19 Atorvastatin Ca [Lipitor] 40 mg PO HS 07/02/19 Budesonide [Pulmicort Flexhaler] 90 mcg IH BID 07/02/19 Clopidogrel Bisulfate [Clopidogrel] 75 mg PO DAILY 07/02/19 Dapagliflozin Propanediol [Farxiga] 20 mg PO DAILY 07/02/19 Dulaglutide [Trulicity] 1.5 mg SQ WEEKLY 07/02/19 Fluticasone/Salmeterol [Advair 1 each IH DAILY 07/02/19 250-50 Diskus] Metoprolol Succinate [Toprol Xl -] 50 mg PO HS 07/02/19 Montelukast Na [Singulair -] 10 mg PO HS 07/02/19 Nifedipine [Procardia Xl] 30 mg PO DAILY 07/02/19 Quinapril HCl 20 mg PO HS 07/02/19 Sulfamethoxazole/Trimethoprim 1 each PO BID #20 tablet 07/02/19 [Bactrim Ds Tablet] Theophylline Anhydrous 150 mg PO BID 07/02/19 Torsemide [Demadex] 20 mg PO DAILY 07/02/19 Current Medications Generic Name Dose Route Start Last Admin Trade Name Freq PRN Reason Stop Dose Admin Albuterol Sulfate 1 amp 10/29/19 18:56 Ventolin 0.083% Nebulizer Soln - NEB Q6H PRN SHORT OF BREATH/WHEEZING Albuterol/Ipratropium 1 amp 10/29/19 20:00 10/29/19 19:56 Duoneb - NEB 1 amp RTID MADELINE Administration Atorvastatin Calcium 40 mg 10/29/19 22:00 Lipitor - PO HS MADELINE Clopidogrel Bisulfate 75 mg 10/30/19 10:00 Plavix - PO DAILY MADELINE Heparin Sodium (Porcine) 5,000 unit 10/30/19 06:00 Heparin - SQ TID MADELINE Sodium Chloride 1,000 mls @ 42 mls/hr 10/29/19 19:00 10/29/19 19:56 Normal Saline - IV 42 mls/hr ASDIR MADELINE Administration Doxycycline Hyclate 100 mg/ 100 mls @ 100 mls/hr 10/29/19 22:00 Dextrose IVPB BID MADELINE Aztreonam 2 gm/ Dextrose 100 mls @ 100 mls/hr 10/30/19 21:00 IVPB Q6H-IV MADELINE Protocol Aztreonam 2 gm/ Dextrose 100 mls @ 100 mls/hr 10/29/19 21:00 IVPB 10/30/19 15:59 Q6H-IV MADELINE Protocol Insulin Aspart 1 vial 10/29/19 22:00 Novolog Vial Sliding Scale - SQ ACHS MADELINE Protocol Methylprednisolone Sodium Succinate 60 mg 10/29/19 21:00 Solu-Medrol - IVPUSH Q6H-IV MADELINE Metoprolol Succinate 50 mg 10/29/19 22:00 Toprol Xl - PO HS MADELINE Nifedipine 30 mg 10/30/19 10:00 Procardia Xl - PO DAILY MADELINE Non-Formulary Medication 90 mcg 10/29/19 22:00 Budesonide [Pulmicort Flexhaler] IH BID MADELINE Quinapril HCl 20 mg 10/29/19 22:00 Accupril - PO HS MADELINE Torsemide 20 mg 10/30/19 10:00 Demadex - PO DAILY MADELINE A/P: 75 M h/o emphysemia/?COPD, HTN, HLD, CAD s/p stenting years ago, obesity, T2DM presents with LLL PNA with increased WOB 2/2 underlying lung disease. LLL PNA 2/2 to CAP, send RSV, flu, Strep/Legionella, sputum cx Cont. Empiric Aztreonam/Doxycycline, nebs around the clock (through compressed air or via BiPAP), IV steroids, pulmonary toileting Monitor breathing, cont. BiPAP and titrate off to 2-3L NC Pulmonary consult ID consult CAD s/p Stent with underlying QTc prolongation 2/2 ?macrolide given overall 3g of Mg, w/ improvement of QTc to 458ms, repeat EKG in AM, strict avoidance of QTc prolonging agents cont. BB/Statin/ASA, hold Torsemide due to hypovolemic state ?JUDY on CKD gentle IV hydration follow chem, avoid nephrotoxins obtain renal US when off BiPAP HTN cont. BP meds as tolerated HLD cont. statin T2DM ISS supplement basal insulin as needed send A1c/lipid panel/TSH DVT Heparin SC Admit to tele
[2019-10-29] MEDS: AZTREONAM 2 GM in DEXTROSE 5%-WATER 100 ML IVPB SCH (21:47)
[2019-10-29] MEDS ORDERED: HEPARIN NA (PORCINE) 5,000 UNITS/ML 1ML VIAL ONE (21:49)
[2019-10-29] MEDS ORDERED: ATORVASTATIN CA 40 MG TABLET (FP) ONE (21:49)
[2019-10-29] MEDS ORDERED: QUINAPRIL HCL 10 MG TABLET (FP) ONE (21:49)
[2019-10-29] MEDS ORDERED: HYDROCORTISONE SOD SUCCINATE 2 ML ONE (21:50)
[2019-10-29] MEDS: methylPREDNISolone NA SUCC 40 MG/1 ML VIAL IVPUSH SCH (22:01)
[2019-10-29] MEDS: ATORVASTATIN CA 40 MG TABLET (FP) PO SCH (22:02)
[2019-10-29] MEDS: INSULIN SLIDING SCALE (NOVOLOG) 1 VIAL SQ SCH (22:02)
[2019-10-29] MEDS: DOXYCYCLINE INJECTION 100 MG in DEXTROSE 5%-WATER - 100 ML IVPB SCH (22:03)
[2019-10-29] MEDS: QUINAPRIL HCL 20 MG TABLET (FP) PO SCH (22:03)
[2019-10-30] MEDS ORDERED: HYDROCORTISONE SOD SUCCINATE 2 ML ONE (02:59)
[2019-10-30] MEDS: AZTREONAM 2 GM in DEXTROSE 5%-WATER 100 ML IVPB SCH ×2 (03:10→09:25)
[2019-10-30] MEDS: methylPREDNISolone NA SUCC 40 MG/1 ML VIAL IVPUSH SCH ×4 (03:10→21:33)
[2019-10-30 04:24] LABS: EPI CELLS 0.3 /HPF (0-5/HPF); HYALINE CASTS 0 /lpf (0-8); URINE APPEARANCE CLEAR; URINE BACTERIA 0.2 /hpf (NEGATIVE); URINE BILIRUBIN NEGATIVE (NEGATIVE); URINE COLOR YELLOW; URINE GLUCOSE (UA) 3+ (NEGATIVE); URINE KETONE NEGATIVE (NEGATIVE); URINE LEUK ESTERASE NEGATIVE (NEGATIVE); URINE NITRITE NEGATIVE (NEGATIVE); URINE PROTEIN 1+ (NEGATIVE); URINE RBC 0 /hpf (0-4); URINE UROBILINOGEN 0.2 mg/dL (0.2-1.0); URINE WBC 0 /hpf (0-5)
[2019-10-30] MEDS: INSULIN SLIDING SCALE (NOVOLOG) 1 VIAL SQ SCH ×4 (06:28→21:49)
[2019-10-30] MEDS ORDERED: INSULIN (NOVOLOG) ASPART 100 UNITS/ML 10ML VIAL ONE (06:57)
[2019-10-30 07:07] LABS: BASO % 0.1 % (0-2.0); HEMATOCRIT 43.3 % (35.4-49); HEMOGLOBIN 14.3 GM/dL (11.7-16.9); LYMPH % 2.1 % (8-40); MCH 29.9 pg (25.7-33.7); MEAN CELL VOLUME 90.6 fl (80-96); MEAN PLT VOLUME 9.9 fl (7.5-11.1); MONO % 2.6 % (3.8-10.2); NEUT % 95.2 % (42.8-82.8); PLATELET COUNT 208 K/MM3 (134-434); RBC 4.78 M/mm3 (4.00-5.60); RDW 14.9 % (11.9-15.9); WHITE BLOOD COUNT 23.4 K/mm3 (4.0-10.0)
[2019-10-30 07:55] LABS: ALBUMIN 3.3 g/dl (3.4-5.0); BILIRUBIN,TOTAL 1.9 mg/dL (0.2-1); BLOOD UREA NITROGEN 21.7 mg/dL (7-18); CALCIUM 9.2 mg/dL (8.5-10.1); CREATININE 1.4 mg/dL (0.55-1.3); MAGNESIUM 2.5 mg/dL (1.8-2.4); PHOSPHOROUS 3.4 mg/dL (2.5-4.9); POTASSIUM 4.5 mmol/L (3.5-5.1); TOT PROT 6.6 g/dl (6.4-8.2)
[2019-10-30] MEDS: ALBUTEROL SO4 2.5/IPRATROPIUM 0.5 INH SOL 3 ML VIAL.NEB. NEB SCH ×3 (08:35→22:35)
[2019-10-30] MEDS ORDERED: ALBUTEROL SO4 2.5/IPRATROPIUM 0.5 INH SOL 3 ML VIAL.NEB. NEB ONE ×2 (08:35→16:12)
[2019-10-30 09:38] LABS: ANISOCYTOSIS 1+; MACROCYTOSIS 1+; OVALOCYTE 1+; PLATELET ESTIMATE NORMAL
--- NOTE | 2019-10-30 09:46 | CON.CARD ---
Consult Consult Specialty:: Cardiology Referred by:: Dr. Booker Reason for Consultation:: SOB - History of Present Illness Chief Complaint: SOB, chills History of Present Illness: 74M CAD , remote PCI, COPD, DM presents to ER 1 day fever, chills and cough. Febrile 103F, CXR left basilar consolidation Denies CP, palps, PND, edema. No hx syncope. Sees Dr. Yip for Cardio - History Source History Provided By: Patient, Family Member Limitations to Obtaining History: No Limitations - Past Medical History ACCREDITATION MANAGER: No: Alzheimer's, CVA, Dementia, Migraine, Multiple Sclerosis, Peripheral Neuropathy, Parkinson's, Seizure, Syncope, TIA, Vertigo, Other Cardio/Vascular: Yes: CAD Pulmonary: Yes: COPD Gastrointestinal: No: Ascites, Cancer, Constipation, Crohn's Disease, Diverticulitis, Diverticulosis, Esophageal Varices, Gastritis, GERD, GI Bleed, Hemorrhoids, Hiatal Hernia, Inflamatory Bowel Disease, Irritable Bowel Disease, Pancreatitis, Peptic Ulcer Disease, Ulcerative Colitis, Other Hepatobiliary: No: Cirrhosis, Cholelithiasis, Cholecystitis, Choledocholithiasis , Hepatitis A, Hepatitis B, Hepatitis C, Other Renal/: No: Renal Failure, Renal Inusuff, BPH, Cancer, Hematuria, Hemodialysis , Neurogenic Bladder, Renal Calculi, UTI, Other Endocrine: Yes: Diabetes Mellitus - Alcohol/Substance Use Hx Alcohol Use: No - Smoking History Smoking history: Former smoker Have you smoked in the past 12 months: No If you are a former smoker, when did you quit?: 1991 - Social History Usual Living Arrangement: With Spouse History of Recent Travel: No Home Medications - Allergies Allergies/Adverse Reactions: Allergies Allergy/AdvReac Type Severity Reaction Status Date / Time Penicillins Allergy Intermediate Hives Verified 07/17/19 17:30 - Home Medications Home Medications: Ambulatory Orders Albuterol Sulfate [Proair Hfa] 8.5 gm IH TID PRN 07/02/19 Allopurinol [Zyloprim -] 300 mg PO HS 07/02/19 Atorvastatin Ca [Lipitor] 40 mg PO HS 07/02/19 Budesonide [Pulmicort Flexhaler] 90 mcg IH BID 07/02/19 Clopidogrel Bisulfate [Clopidogrel] 75 mg PO DAILY 07/02/19 Dapagliflozin Propanediol [Farxiga] 5 mg PO DAILY 07/02/19 Dulaglutide [Trulicity] 1.5 mg SQ WEEKLY 07/02/19 Fluticasone/Salmeterol [Advair 250-50 Diskus] 1 each IH DAILY 07/02/19 Metoprolol Succinate [Toprol Xl -] 50 mg PO HS 07/02/19 Montelukast Na [Singulair -] 10 mg PO HS 07/02/19 Nifedipine [Procardia Xl] 30 mg PO DAILY 07/02/19 Quinapril HCl 20 mg PO HS 07/02/19 Theophylline Anhydrous 150 mg PO Q2D 07/02/19 Torsemide [Demadex] 20 mg PO Q2D 07/02/19 Family Medical History Family History: Unremarkable Review of Systems - Review of Systems Constitutional: reports: Chills, Malaise Cardiovascular: reports: No Symptoms Respiratory: reports: Cough Gastrointestinal: reports: No Symptoms Genitourinary: reports: No Symptoms Breasts: reports: No Symptoms Reported Musculoskeletal: reports: No Symptoms Integumentary: reports: No Symptoms Neurological: reports: No Symptoms Endocrine: reports: No Symptoms Hematology/Lymphatic: reports: No Symptoms Psychiatric: reports: No Symptoms - Risk Factors Known Risk Factors: Yes: Diabetes Mellitus, Other (KNown CAD) Vital Signs: Vital Signs Temperature 98.0 F 10/30/19 06:40 Pulse Rate 99 H 10/30/19 08:42 Respiratory Rate 18 10/30/19 06:40 Blood Pressure 143/77 10/30/19 06:40 O2 Sat by Pulse Oximetry (%) 98 10/30/19 08:42 Constitutional: Yes: Calm Eyes: Yes: Conjunctiva Clear Respiratory: Yes: Other (rales left base) Gastrointestinal: Yes: Soft JVD: No Heart Sounds: Yes: S1, S2 (reg) Edema: Yes Edema: LLE: 1+, RLE: 1+ Peripheral Pulses WNL: Yes Neurological: Yes: Alert, Oriented - Other Data Labs, Other Data: CBC, BMP 10/30/19 06:08 10/30/19 06:08 INR, PTT INR 0.99 (0.83-1.09) 10/29/19 16:00 Troponin, BNP 10/29/19 10/29/19 16:00 16:00 Troponin I < 0.02 B-Natriuretic Peptide 52.7 Troponin, BNP 10/29/19 10/29/19 16:00 16:00 Troponin I < 0.02 B-Natriuretic Peptide 52.7 Microbiology Laboratory Tests 10/29/19 10/29/19 10/30/19 16:00 20:49 06:08 WBC 23.4 H Hgb 14.3 Plt Count 208 Sodium Potassium Creatinine Lactic Acid 4.4 H* 3.0 H* Magnesium Albumin TSH 10/30/19 06:08 WBC Hgb Plt Count Sodium 142 Potassium 4.5 Creatinine 1.4 H Lactic Acid Magnesium 2.5 H Albumin 3.[address] 137, QTc 600ms Echo: Pending Imaging - Results X-ray: Image Reviewed EKG: Image Reviewed Assessment/Plan IMP: SIRS, early sepsis secondary to CAP CAD w/ remote PCI COPD DM VPCs REC: 1. Cultures/ abx as per primary team. Would avoid Azithro if possible, can prolong QT 2. Keep K + adn Mg2+ repleted. 3. Echo 4. Suppl O2 5. Continue home cardiac meds for now, may need to hold BP meds pending clinical course/ BP trend. 6. DVT prophylaxis. Will follow. Coverage for Dr. Yip
[2019-10-30] MEDS ORDERED: TORSEMIDE 20 MG TABLET (FP) PO SCH (10:00)
[2019-10-30] MEDS: HEPARIN NA (PORCINE) 5,000 UNITS/ML 1ML VIAL SQ SCH ×3 (10:14→21:34)
[2019-10-30] MEDS: DOXYCYCLINE INJECTION 100 MG in DEXTROSE 5%-WATER - 100 ML IVPB SCH (10:14)
[2019-10-30] MEDS ORDERED: CLOPIDOGREL BISULFATE 75 MG TABLET (FP) ONE (10:16)
[2019-10-30] MEDS ORDERED: CEFTRIAXONE 2 GM/100 ML BAG IVPB ONE (10:17)
--- NOTE | 2019-10-30 10:17 | PN ---
Progress Note (short form) - Note Progress Note: ID consult dictated imp/reccd 74 yo man admitted from home with acute onset of chills, vomiting, dizziness and sob, vomiting times 3 no diarrhea, reddish brown sputum fever 102.7 cxray with LLL infiltrate PE c/w LLL pneumonia CAP- plan roceplhin/doxy f/u cultures f/u urinary antigens pen allergy- rash many years ago , no angioedema or anaphylaxis history copd history of DM Problem List - Problems (1) Pneumonia Code(s): J18.9 - PNEUMONIA, UNSPECIFIED ORGANISM Qualifiers: Pneumonia type: due to unspecified organism Laterality: left Lung location: lower lobe of lung Qualified Code(s): J18.9 - Pneumonia, unspecified organism (2) Penicillin allergy Code(s): Z88.0 - ALLERGY STATUS TO PENICILLIN (3) COPD exacerbation Code(s): J44.1 - CHRONIC OBSTRUCTIVE PULMONARY DISEASE W (ACUTE) EXACERBATION
[2019-10-30] MEDS: NIFEdipine E.R. 30 MG TABLET PO SCH (10:22)
[2019-10-30] MEDS: CLOPIDOGREL BISULFATE 75 MG TABLET (FP) PO SCH (10:22)
[2019-10-30] MEDS ORDERED: CEFTRIAXONE 2 GM in DEXTROSE 5%-WATER 100 ML IVPB SCH (10:30)
[2019-10-30] MEDS: SODIUM CHLORIDE 1,000 ML IV SCH ×2 (11:29→19:30)
--- NOTE | 2019-10-30 12:17 | ECHO ---
Name: JUAN ANTONIO MUKHERJEE, JR Exam:Adult Echocardiogram Study Date: 10/30/2019 08:06 AM Age: 74 yrs Reason For Study: SOB Height: 70 in Weight: 234 lb BSA: 2.2 m2 MMode/2D Measurements & Calculations IVSd: 1.1 cm Ao root diam: 2.8 cm LVIDd: 2.9 cm LA dimension: 3.3 cm LVIDs: 1.9 cm LVPWd: 1.0 cm EDV(Teich): 33.3 ml LVOT diam: 2.0 cm ESV(Teich): 11.5 ml LAV (MOD-bp): 25.3 ml Doppler Measurements & Calculations MV E max nelson: 81.5 cm/sec Ao V2 max: 115.4 cm/sec MV A max nelson: 107.2 cm/sec Ao max P.3 mmHg MV E/A: 0.76 MV dec time: 0.17 sec DORIS(V,D): 2.2 cm2 LV V1 max P.4 mmHg PA V2 max: 82.8 cm/sec LV V1 max: 77.1 cm/sec PA max P.7 mmHg Med Peak E' Nelson: 6.3 cm/sec Med E/e': 12.9 Lat Peak E' Nelson: 6.5 cm/sec Lat E/e': 12.5 Procedure The study was technically difficult with many images being suboptimal in quality. Left Ventricle Left ventricular systolic function is grossly normal. The transmitral spectral Doppler flow pattern i s suggestive of impaired LV relaxation. Regional wall motion abnormalities cannot be excluded due to li mited visualization. Right Ventricle The right ventricle is grossly normal size. The right ventricular systolic function is grossly normal . Atria Normal left and right atrial size and function. Mitral Valve The mitral valve is normal in structure and function. There is no mitral valve stenosis. There is tra ce mitral regurgitation. Tricuspid Valve The tricuspid valve is normal in structure and function. There is mild tricuspid regurgitation. There was insufficient TR detected to calculate RV systolic pressure. Aortic Valve There is mild aortic sclerosis.;. No hemodynamically significant valvular aortic stenosis. No aortic regurgitation is present. Pulmonic Valve The pulmonic valve is not well seen, but is grossly normal. There is no pulmonic valvular stenosis. Great Vessels The aortic root is normal size. Pericardium/Pleura There is no pericardial effusion. Interpretation Summary The study was technically difficult with many images being suboptimal in quality. Regional wall motion abnormalities cannot be excluded due to limited visualization. Left ventricular systolic function is grossly normal. There is mild tricuspid regurgitation. There is mild aortic sclerosis.; There is no pericardial effusion. MD Perez *Zuly 10/30/2019 12:16 PM
--- NOTE | 2019-10-30 12:38 | CON.PULM ---
Consult Consult Specialty:: PULM/CCM Referred by:: Hospitalist Reason for Consultation:: SOB - History of Present Illness Chief Complaint: SOB History of Present Illness: 75 M, HTN, HLD, CAD s/p stent > 10 years ago, NIDDM, emphysema/COPD due to previous smoking history (taken care of by Dr Cabral), OSAS but refused CPAP , and b/l hip replacement. Admitted via the ER due to worsening productive cough of green/yellow sputum over the last 3 days. No travel history or sick contacts. No hemoptysis or night sweats. On initial presentation he required NIPPV support to assist in his WOB. CXR: LLL infiltrate / consolidation Noted he was given Azithromycin, (Qtc prolonged). He was given Mg IV with improvement of QTc to 458ms. - History Source History Provided By: Patient Limitations to Obtaining History: No Limitations - Past Medical History HR ADMINISTRATOR: No: Alzheimer's, CVA, Dementia, Migraine, Multiple Sclerosis, Peripheral Neuropathy, Parkinson's, Seizure, Syncope, TIA, Vertigo, Other Cardio/Vascular: Yes: CAD Pulmonary: Yes: Bronchitis, COPD, Sleep Apnea. No: Asthma, Cancer, O2 Dependent , Pneumonia, Previously Intubated, Pulmonary Embolus, Pulmonary Fibrosis Gastrointestinal: No: Ascites, Cancer, Constipation, Crohn's Disease, Diverticulitis, Diverticulosis, Esophageal Varices, Gastritis, GERD, GI Bleed, Hemorrhoids, Hiatal Hernia, Inflamatory Bowel Disease, Irritable Bowel Disease, Pancreatitis, Peptic Ulcer Disease, Ulcerative Colitis, Other Hepatobiliary: No: Cirrhosis, Cholelithiasis, Cholecystitis, Choledocholithiasis , Hepatitis A, Hepatitis B, Hepatitis C, Other Renal/: No: Renal Failure, Renal Inusuff, BPH, Cancer, Hematuria, Hemodialysis , Neurogenic Bladder, Renal Calculi, UTI, Other Endocrine: Yes: Diabetes Mellitus - Alcohol/Substance Use Hx Alcohol Use: No - Smoking History Smoking history: Former smoker Have you smoked in the past 12 months: No If you are a former smoker, when did you quit?: 1991 - Social History Usual Living Arrangement: With Spouse History of Recent Travel: No Home Medications - Allergies Allergies/Adverse Reactions: Allergies Allergy/AdvReac Type Severity Reaction Status Date / Time Penicillins Allergy Intermediate Hives Verified 07/17/19 17:30 - Home Medications Home Medications: Ambulatory Orders Albuterol Sulfate [Proair Hfa] 8.5 gm IH TID PRN 07/02/19 Allopurinol [Zyloprim -] 300 mg PO HS 07/02/19 Atorvastatin Ca [Lipitor] 40 mg PO HS 07/02/19 Budesonide [Pulmicort Flexhaler] 90 mcg IH BID 07/02/19 Clopidogrel Bisulfate [Clopidogrel] 75 mg PO DAILY 07/02/19 Dapagliflozin Propanediol [Farxiga] 5 mg PO DAILY 07/02/19 Dulaglutide [Trulicity] 1.5 mg SQ WEEKLY 07/02/19 Fluticasone/Salmeterol [Advair 250-50 Diskus] 1 each IH DAILY 07/02/19 Metoprolol Succinate [Toprol Xl -] 50 mg PO HS 07/02/19 Montelukast Na [Singulair -] 10 mg PO HS 07/02/19 Nifedipine [Procardia Xl] 30 mg PO DAILY 07/02/19 Quinapril HCl 20 mg PO HS 07/02/19 Theophylline Anhydrous 150 mg PO Q2D 07/02/19 Torsemide [Demadex] 20 mg PO Q2D 07/02/19 Review of Systems - Review of Systems Constitutional: reports: Fever, Malaise, Unintentional Wgt. Loss. denies: Night Sweats Eyes: reports: No Symptoms HENT: reports: No Symptoms Neck: reports: No Symptoms Cardiovascular: reports: Shortness of Breath. denies: Chest Pain, Edema, Palpitations Respiratory: reports: Cough, Snoring, SOB, SOB on Exertion, Wheezing. denies: Hemoptysis, Orthopnea, PND Gastrointestinal: reports: No Symptoms Genitourinary: reports: No Symptoms Breasts: reports: No Symptoms Reported Musculoskeletal: reports: No Symptoms Integumentary: reports: No Symptoms Neurological: reports: No Symptoms Endocrine: reports: No Symptoms Hematology/Lymphatic: reports: No Symptoms Psychiatric: reports: No Symptoms Physical Exam Vital Sings: Vital Signs Temperature 97.6 F 10/30/19 10:00 Pulse Rate 96 H 10/30/19 10:00 Respiratory Rate 18 10/30/19 10:00 Blood Pressure 135/81 10/30/19 10:00 O2 Sat by Pulse Oximetry (%) 90 L 10/30/19 10:00 Constitutional: Yes: No Distress Eyes: Yes: Conjunctiva Clear, EOM Intact HENT: Yes: Atraumatic, Normocephalic Neck: Yes: Supple, Trachea Midline Cardiovascular: Yes: Regular Rate and Rhythm Respiratory: Yes: Cough, Diminished, On Nasal O2, Rhonchi, SOB, SOB on Exertion , Tachypnea, Wheezes. No: Accessory Muscle Use, Rales, Stridor ...Inspection: Yes: WNL ...Clubbing: No Gastrointestinal: Yes: Normal Bowel Sounds, Soft Renal/: Yes: WNL Breast(s): Yes: WNL Musculoskeletal: Yes: WNL Extremities: Yes: WNL Edema: No Peripheral Pulses WNL: Yes Integumentary: Yes: WNL Neurological: Yes: WNL, Alert, Oriented ...Motor Strength: WNL Psychiatric: Yes: WNL, Alert, Oriented Labs: CBC, BMP 10/30/19 06:08 10/30/19 06:08 Imaging - Results Chest X-ray: Report Reviewed, Image Reviewed Problem List - Problems (1) COPD (chronic obstructive pulmonary disease) Code(s): J44.9 - CHRONIC OBSTRUCTIVE PULMONARY DISEASE, UNSPECIFIED (2) Sleep apnea Code(s): G47.30 - SLEEP APNEA, UNSPECIFIED (3) Obesity Code(s): E66.9 - OBESITY, UNSPECIFIED (4) Pneumonia Code(s): J18.9 - PNEUMONIA, UNSPECIFIED ORGANISM Qualifiers: Pneumonia type: due to unspecified organism Laterality: left Lung location: lower lobe of lung Qualified Code(s): J18.9 - Pneumonia, unspecified organism Assessment/Plan ABX per ID Medrol BD TX O2 as needed No smoking counseled PFTs after discharge Will need OSAS re-evaluation after discharge as his reports that his snoring and apneas are worsening VTE prophylaxis Will follow Thank you. Dr Jiang
--- NOTE | 2019-10-30 13:17 | EKG ---
Test Reason : Blood Pressure : / mmHG Vent. Rate : 089 BPM Atrial Rate : 089 BPM P-R Int : 154 ms QRS Dur : 088 ms QT Int : 354 ms P-R-T Axes : 017 004 -14 degrees QTc Int : 430 ms NORMAL SINUS RHYTHM MINIMAL VOLTAGE CRITERIA FOR LVH, MAY BE NORMAL VARIANT NONSPECIFIC T WAVE ABNORMALITY ABNORMAL ECG WHEN COMPARED WITH ECG OF 29-OCT-2019 18:32, PREMATURE VENTRICULAR COMPLEXES ARE NO LONGER PRESENT NONSPECIFIC T WAVE ABNORMALITY NOW EVIDENT IN LATERAL LEADS Confirmed by ANDRE PENA MD ([id number]) on 10/30/2019 1:17:13 PM Referred By: ROSIE HALL Confirmed By:ANDRE PENA MD
--- NOTE | 2019-10-30 13:46 | EKG ---
Test Reason : Blood Pressure : / mmHG Vent. Rate : 113 BPM Atrial Rate : 113 BPM P-R Int : 150 ms QRS Dur : 082 ms QT Int : 334 ms P-R-T Axes : 025 004 018 degrees QTc Int : 458 ms SINUS TACHYCARDIA WITH FREQUENT PREMATURE VENTRICULAR COMPLEXES WHEN COMPARED WITH ECG OF 29-OCT-2019 15:46, ST NO LONGER DEPRESSED IN LATERAL LEADS Confirmed by ANDRE PENA MD ([id number]) on 10/30/2019 1:46:14 PM Referred By: Confirmed By:ANDRE PENA MD
--- NOTE | 2019-10-30 13:48 | EKG ---
Test Reason : Blood Pressure : / mmHG Vent. Rate : 137 BPM Atrial Rate : 137 BPM P-R Int : 138 ms QRS Dur : 082 ms QT Int : 398 ms P-R-T Axes : 016 002 022 degrees QTc Int : 600 ms SINUS TACHYCARDIA WITH FREQUENT and consecutive PREMATURE VENTRICULAR COMPLEXES NONSPECIFIC ST ABNORMALITY ABNORMAL ECG WHEN COMPARED WITH ECG OF 05-APR-2010 11:01, PREMATURE VENTRICULAR COMPLEXES ARE NOW PRESENT VENT. RATE HAS INCREASED BY 53 BPM NONSPECIFIC T WAVE ABNORMALITY HAS REPLACED INVERTED T WAVES IN INFERIOR LEADS T WAVE INVERSION NO LONGER EVIDENT IN LATERAL LEADS Confirmed by ANDRE PENA MD ([id number]) on 10/30/2019 1:47:45 PM Referred By: Confirmed By:ANDRE PENA MD
--- NOTE | 2019-10-30 14:05 | CONS ---
INFECTIOUS DISEASE CONSULTATION DATE OF CONSULTATION: DATE OF DICTATION: 10/30/2019 REQUESTING PHYSICIAN: Hospitalist service HISTORY: This is a 74-year-old man who presents to the emergency room with a 1-day history of chills, vomiting, dizziness, shortness of breath as well as a productive cough with green-brown sputum. He in the emergency room was noted to have a fever of 102.7. He reports 3 episodes of vomiting. No hemoptysis. No diarrhea. He does report a sick contact. His grandchild, who he has been taking care of who is 8 months, had a runny nose and fever and had recently returned from [place]. The patient personally has not travelled. He denies any chest pain. He denies any lower extremity edema. He has never had pneumonia. He has not recently been on antibiotics. His vaccination history, he has had Prevnar, he has had Tdap, and he has had an influenza vaccine in July. His PCP is Dr. Harvey. PAST MEDICAL HISTORY: Notable for coronary artery disease. He is followed by Dr. Yip for Cardiology. He has a history of emphysema. He has a history of diabetes for many years. SOCIAL HISTORY: He is a former smoker. He quit many years ago. He lives with his spouse. ALLERGIES: He is allergic to PENICILLIN, which many, many years ago gave him a rash. There was no angioedema or anaphylaxis. MEDICATIONS: At home include albuterol inhaler, allopurinol, atorvastatin, Pulmicort, Plavix, Farxiga, Trulicity, Advair, Toprol, Singulair, Procardia, quinapril, Theophylline, and Demadex. FAMILY HISTORY: Noncontributory. REVIEW OF SYSTEMS: As per HPI. There is no dysuria or diarrhea. PHYSICAL EXAMINATION: General: He is awake and alert. He is feeling improved. Vital Signs: Temperature 97.6, maximum temperature 102.7, pulse of 99, blood pressure is 135/81, respiratory rate is 18. He is saturating 90% on 3 L. HEENT: He is normocephalic. His eyes are anicteric. He has dentures upper teeth. He has very poorly maintained lower teeth. He has no thrush or pharyngitis. Neck: Supple. He has no meningeal signs. Lungs: He has crackles at his left base. Heart: Regular rate and rhythm. Abdomen: Soft, nontender. Extremities: Without edema. He has venostasis changes that are chronic of his left lower leg, and he has a chronic ulcer on his left big toe. Skin: He has no skin breakdown. DIAGNOSTIC DATA: His labs are notable for a white count on admission of 13.2, today is 23.4, hemoglobin 14.3, platelets are 208. His BUN 21, creatinine 1.4. Total bilirubin 1.9. LFTs are, otherwise, normal. Urinalysis has no white cells. His influenza and RSV screen are negative. The chest x-ray is as previously indicated. In summary, this is a 74-year-old man with longstanding diabetes, history of coronary artery disease with community-acquired pneumonia left lower lobe and PENICILLIN allergy, which appears mild. He received Zithromax and then Azactam and doxycycline in the ER. He was noted to have a prolonged QT, and the Zithromax was stopped. He also received steroids in the emergency room. I would suggest at this time that we switch him to ceftriaxone and treat him with doxycycline. Further recommendations to follow. GÉNESIS SMITH M.D. [id number]
--- NOTE | 2019-10-30 17:57 | PN ---
Physical Exam: SUBJECTIVE: Patient seen and examined. No acute events overnight. Patient offers no new complaints. OBJECTIVE: Vital Signs Period Temp Pulse Resp BP Sys/Crenshaw Pulse Ox Last 24 Hr 97.6 F-98.1 F 84-107 18-22 113-148/57-81 90-98 GENERAL: a/o x 3, in NAD, comfortable on bipap HEAD: Normal with no signs of trauma. EYES: Pupils equal, round and reactive to light, extraocular movements intact EARS, NOSE, THROAT:oropharynx clear without exudates. NECK: supple without lymphadenopathy, JVD, or masses. LUNGS: course rhonchi HEART: tachy, regular rhythm ABDOMEN: Soft, nontender, not distended, normoactive bowel sounds LOWER EXTREMITIES: 2+ pulses. + edema b/l NEUROLOGICAL: Cranial nerves II-XII intact Laboratory Results - last 24 hr 10/29/19 10/29/19 10/29/19 16:00 16:00 20:49 WBC RBC Hgb Hct MCV MCH MCHC RDW Plt Count MPV Absolute Neuts (auto) Neutrophils % Neutrophils % (Manual) 85.6 H Band Neutrophils % 3.1 Lymphocytes % Lymphocytes % (Manual) 7.2 L Monocytes % Monocytes % (Manual) 4 Eosinophils % Eosinophils % (Manual) 0.0 Basophils % Basophils % (Manual) 0.0 Myelocytes % (Man) 0 Promyelocytes % (Man) 0 Blast Cells % (Manual) 0 Nucleated RBC % Metamyelocytes 0 Hypochromia 0 Platelet Estimate Normal Platelet Comment Polychromasia 0 Poikilocytosis 0 Anisocytosis 0 Microcytosis 0 Macrocytosis 0 Ovalocytes 1+ Pierron Cells Sodium Potassium Chloride Carbon Dioxide Anion Gap BUN Creatinine Est GFR (CKD-EPI)AfAm Est GFR (CKD-EPI)NonAf POC Glucometer Random Glucose Lactic Acid 3.0 H* Calcium Phosphorus Magnesium Total Bilirubin AST ALT Alkaline Phosphatase B-Natriuretic Peptide 52.7 Total Protein Albumin TSH Urine Color Urine Appearance Urine pH Ur Specific [place] Urine Protein Urine Glucose (UA) Urine Ketones Urine Blood Urine Nitrite Urine Bilirubin Urine Urobilinogen Ur Leukocyte Esterase Urine WBC (Auto) Urine RBC (Auto) Urine Casts (Auto) U Epithel Cells (Auto) Urine Bacteria (Auto) RSV Rapid 10/29/19 10/30/19 10/30/19 21:57 04:00 04:01 WBC RBC Hgb Hct MCV MCH MCHC RDW Plt Count MPV Absolute Neuts (auto) Neutrophils % Neutrophils % (Manual) Band Neutrophils % Lymphocytes % Lymphocytes % (Manual) Monocytes % Monocytes % (Manual) Eosinophils % Eosinophils % (Manual) Basophils % Basophils % (Manual) Myelocytes % (Man) Promyelocytes % (Man) Blast Cells % (Manual) Nucleated RBC % Metamyelocytes Hypochromia Platelet Estimate Platelet Comment Polychromasia Poikilocytosis Anisocytosis Microcytosis Macrocytosis Ovalocytes Carlos Cells Sodium Potassium Chloride Carbon Dioxide Anion Gap BUN Creatinine Est GFR (CKD-EPI)AfAm Est GFR (CKD-EPI)NonAf POC Glucometer 141 Random Glucose Lactic Acid Calcium Phosphorus Magnesium Total Bilirubin AST ALT Alkaline Phosphatase B-Natriuretic Peptide Total Protein Albumin TSH Urine Color Yellow Urine Appearance Clear Urine pH 5.0 Ur Specific [place] 1.031 Urine Protein 1+ H Urine Glucose (UA) 3+ H Urine Ketones Negative Urine Blood 1+ H Urine Nitrite Negative Urine Bilirubin Negative Urine Urobilinogen 0.2 Ur Leukocyte Esterase Negative Urine WBC (Auto) 0 Urine RBC (Auto) 0 Urine Casts (Auto) 0 U Epithel Cells (Auto) 0.3 Urine Bacteria (Auto) 0.2 RSV Rapid Negative 10/30/19 10/30/19 10/30/19 06:08 06:08 06:25 WBC 23.4 H RBC 4.78 Hgb 14.3 Hct 43.3 MCV 90.6 MCH 29.9 MCHC 33.0 RDW 14.9 Plt Count 208 MPV 9.9 Absolute Neuts (auto) 22.3 H Neutrophils % 95.2 H Neutrophils % (Manual) 50.0 D Band Neutrophils % 35.0 Lymphocytes % 2.1 L D Lymphocytes % (Manual) 1.0 L D Monocytes % 2.6 L D Monocytes % (Manual) 2 L Eosinophils % 0.0 D Eosinophils % (Manual) 0.0 Basophils % 0.1 Basophils % (Manual) 0.0 Myelocytes % (Man) 0 Promyelocytes % (Man) 0 Blast Cells % (Manual) 0 Nucleated RBC % 0 Metamyelocytes 9 H D Hypochromia 0 Platelet Estimate Normal Platelet Comment Present Polychromasia 1+ Poikilocytosis 1+ Anisocytosis 1+ Microcytosis 1+ Macrocytosis 1+ Ovalocytes 1+ Pierron Cells 1+ Sodium 142 Potassium 4.5 Chloride 110 H Carbon Dioxide 23 Anion Gap 9 BUN 21.7 H Creatinine 1.4 H Est GFR (CKD-EPI)AfAm 57.76 Est GFR (CKD-EPI)NonAf 49.84 POC Glucometer 240 Random Glucose 211 H Lactic Acid Calcium 9.2 Phosphorus 3.4 Magnesium 2.5 H Total Bilirubin 1.9 H AST 24 ALT 12 L Alkaline Phosphatase 77 B-Natriuretic Peptide Total Protein 6.6 Albumin 3.3 L TSH 0.39 Urine Color Urine Appearance Urine pH Ur Specific [place] Urine Protein Urine Glucose (UA) Urine Ketones Urine Blood Urine Nitrite Urine Bilirubin Urine Urobilinogen Ur Leukocyte Esterase Urine WBC (Auto) Urine RBC (Auto) Urine Casts (Auto) U Epithel Cells (Auto) Urine Bacteria (Auto) RSV Rapid 10/30/19 10/30/19 13:06 16:45 WBC RBC Hgb Hct MCV MCH MCHC RDW Plt Count MPV Absolute Neuts (auto) Neutrophils % Neutrophils % (Manual) Band Neutrophils % Lymphocytes % Lymphocytes % (Manual) Monocytes % Monocytes % (Manual) Eosinophils % Eosinophils % (Manual) Basophils % Basophils % (Manual) Myelocytes % (Man) Promyelocytes % (Man) Blast Cells % (Manual) Nucleated RBC % Metamyelocytes Hypochromia Platelet Estimate Platelet Comment Polychromasia Poikilocytosis Anisocytosis Microcytosis Macrocytosis Ovalocytes Pierron Cells Sodium Potassium Chloride Carbon Dioxide Anion Gap BUN Creatinine Est GFR (CKD-EPI)AfAm Est GFR (CKD-EPI)NonAf POC Glucometer 290 237 Random Glucose Lactic Acid Calcium Phosphorus Magnesium Total Bilirubin AST ALT Alkaline Phosphatase B-Natriuretic Peptide Total Protein Albumin TSH Urine Color Urine Appearance Urine pH Ur Specific [place] Urine Protein Urine Glucose (UA) Urine Ketones Urine Blood Urine Nitrite Urine Bilirubin Urine Urobilinogen Ur Leukocyte Esterase Urine WBC (Auto) Urine RBC (Auto) Urine Casts (Auto) U Epithel Cells (Auto) Urine Bacteria (Auto) RSV Rapid Active Medications Generic Name Dose Route Start Last Admin Trade Name Freq PRN Reason Stop Dose Admin Albuterol Sulfate 1 amp 10/29/19 18:56 Ventolin 0.083% Nebulizer Soln - NEB Q6H PRN SHORT OF BREATH/WHEEZING Albuterol/Ipratropium 1 amp 10/29/19 20:00 10/30/19 16:19 Duoneb - NEB 1 amp RTID MADELINE Administration Atorvastatin Calcium 40 mg 10/29/19 22:00 10/29/19 22:02 Lipitor - PO 40 mg HS MADELINE Administration Clopidogrel Bisulfate 75 mg 10/30/19 10:00 10/30/19 10:22 Plavix - PO 75 mg DAILY MADELINE Administration Heparin Sodium (Porcine) 5,000 unit 10/30/19 06:00 10/30/19 15:00 Heparin - SQ 5,000 unit TID MADELINE Administration Sodium Chloride 1,000 mls @ 42 mls/hr 10/29/19 19:00 10/30/19 11:29 Normal Saline - IV 42 mls/hr ASDIR MADELINE Administration Ceftriaxone Sodium 2 gm in 50 mls @ 100 mls/hr 10/31/19 10:00 Ceftriaxone 2 Gm-D5w Bag IVPB DAILY MADELINE Protocol Insulin Aspart 1 vial 10/29/19 22:00 10/30/19 16:46 Novolog Vial Sliding Scale - SQ 4 unit ACHS MADELINE Administration Protocol Methylprednisolone Sodium Succinate 60 mg 10/29/19 21:00 10/30/19 15:55 Solu-Medrol - IVPUSH 60 mg Q6H-IV MADELINE Administration Metoprolol Succinate 50 mg 10/29/19 22:00 10/29/19 22:03 Toprol Xl - PO Not Given HS MADELINE Nifedipine 30 mg 10/30/19 10:00 10/30/19 10:22 Procardia Xl - PO 30 mg DAILY MADELINE Administration Non-Formulary Medication 90 mcg 10/29/19 22:00 Budesonide [Pulmicort Flexhaler] IH BID MADELINE Quinapril HCl 20 mg 10/29/19 22:00 10/29/19 22:03 Accupril - PO Not Given HS [facility] ASSESSMENT/PLAN: 75 yo M with a PMhx of HTN, HL, CAD s/p stent > 10 years ago, PVCs, NIDDM, emphysema, asthma, and b/l hip replacement, presenting with worsening cough with increasing green/yellow sputum production for the last 3 days. #Acute Hypoxic respiratory failure likely 2/2 Sepsis from PNA -2/2 Sepsis from PNA -patient with hx of Asthma, Emphysema -ucx, blood cultures pending -CXR: CXR: L basilar consolidation -Cont IV abx day 2: ceftriaxone,doxy per ID -cont.IV medrol 60mg q6h -ID on Board -gentle hydration #Sepsis 2/2 CAP -read plan above #JUDY -likely prerenal -cont gentle hydration #QTC prolongation -qtc 600. Ekg sinus tach at 137, multiple pvc, poor r wave progression -repeat EKG with 457 qtc -avoid qtc prolongation agents -echo results noted -fu am magnesium #HTN/CAD -cont home meds #DM -ssi #hx of asthma/emphysema -cont home meds #FEN -gentle hydration -monitor -diabetic diet #dvt ppx -hep sq Visit type - Emergency Visit Emergency Visit: Yes ED Registration Date: 10/29/19 Care time: The patient presented to the Emergency Department on the above date and was hospitalized for further evaluation of their emergent condition. - New Patient This patient is new to me today: Yes Date on this admission: 10/30/19 - Critical Care Critical Care patient: No ATTENDING PHYSICIAN STATEMENT I saw and evaluated the patient. I reviewed the resident's note and discussed the case with the resident. I agree with the resident's findings and plan as documented. SUBJECTIVE: OBJECTIVE: ASSESSMENT AND PLAN:
[2019-10-30] MEDS ORDERED: AZTREONAM 2 GM in DEXTROSE 5%-WATER 100 ML IVPB SCH (21:00)
[2019-10-30] MEDS: ATORVASTATIN CA 40 MG TABLET (FP) PO SCH (21:33)
[2019-10-30] MEDS: QUINAPRIL HCL 20 MG TABLET (FP) PO SCH (21:37)
[2019-10-31 00:36] VITALS: BMI 32.1
[2019-10-31] MEDS: methylPREDNISolone NA SUCC 40 MG/1 ML VIAL IVPUSH SCH ×3 (03:22→14:13)
[2019-10-31] MEDS: INSULIN SLIDING SCALE (NOVOLOG) 1 VIAL SQ SCH ×4 (06:39→21:51)
[2019-10-31] MEDS: HEPARIN NA (PORCINE) 5,000 UNITS/ML 1ML VIAL SQ SCH ×3 (06:39→21:51)
[2019-10-31] MEDS: ALBUTEROL SO4 2.5/IPRATROPIUM 0.5 INH SOL 3 ML VIAL.NEB. NEB SCH ×3 (07:39→20:50)
[2019-10-31 07:51] LABS: BASO % 0.1 % (0-2.0); HEMATOCRIT 41.9 % (35.4-49); HEMOGLOBIN 13.7 GM/dL (11.7-16.9); LYMPH % 3.1 % (8-40); MCH 29.4 pg (25.7-33.7); MCHC 32.7 g/dl (32.0-35.9); MEAN PLT VOLUME 10.1 fl (7.5-11.1); NEUT % 93.8 % (42.8-82.8); PLATELET COUNT 210 K/MM3 (134-434); RBC 4.66 M/mm3 (4.00-5.60); RDW 15.3 % (11.9-15.9); WHITE BLOOD COUNT 19.5 K/mm3 (4.0-10.0)
[2019-10-31 08:13] LABS: ALBUMIN 3.1 g/dl (3.4-5.0); BILIRUBIN,TOTAL 1.2 mg/dL (0.2-1); BLOOD UREA NITROGEN 26.1 mg/dL (7-18); CALCIUM 9.5 mg/dL (8.5-10.1); CREATININE 1.2 mg/dL (0.55-1.3); MAGNESIUM 2.7 mg/dL (1.8-2.4); PHOSPHOROUS 3.1 mg/dL (2.5-4.9); POTASSIUM 4.4 mmol/L (3.5-5.1); TOT PROT 6.5 g/dl (6.4-8.2)
[2019-10-31] MEDS: CLOPIDOGREL BISULFATE 75 MG TABLET (FP) PO SCH (09:15)
[2019-10-31] MEDS: NIFEdipine E.R. 30 MG TABLET PO SCH (09:15)
[2019-10-31] MEDS ORDERED: DEXTROSE 5%-WATER 100 ML IVPB ONE (09:24)
[2019-10-31] MEDS: CEFTRIAXONE 2 GM in DEXTROSE 5%-WATER 100 ML IVPB SCH (09:26)
[2019-10-31] MEDS ORDERED: CEFTRIAXONE 2 GM-D5W BAG 2 GM/50 ML BAG IVPB SCH (10:00)
--- NOTE | 2019-10-31 11:43 | PN ---
Progress Note, Physician History of Present Illness: patient seen and examined at bedside with and daughter present. He endorses blood in his sputum. He showed me a napkin with dried phlegm and it is rust colored with small specks of blood. He reports his symptom are improving everyday. He denies nausea vomiting fever chills chest pain diarrhea or urinary symptoms. Endorses constipation but doesnt want any stool softeners/laxatives. At baseline report BINGHAM when climbing stairs or prolonged activity. Urine antigens positive for strep pneumo - Current Medication List Current Medications: Active Medications Albuterol Sulfate (Ventolin 0.083% Nebulizer Soln -) 1 amp NEB Q6H PRN PRN Reason: SHORT OF BREATH/WHEEZING Albuterol/Ipratropium (Duoneb -) 1 amp NEB RTID [facility] Last Admin: 10/31/19 07:39 Dose: 1 amp Atorvastatin Calcium (Lipitor -) 40 mg PO HS [facility] Last Admin: 10/30/19 21:33 Dose: 40 mg Clopidogrel Bisulfate (Plavix -) 75 mg PO DAILY [facility] Last Admin: 10/31/19 09:15 Dose: 75 mg Heparin Sodium (Porcine) (Heparin -) 5,000 unit SQ TID [facility] Last Admin: 10/31/19 06:39 Dose: 5,000 unit Sodium Chloride (Normal Saline -) 1,000 mls @ 42 mls/hr IV ASDIR [facility] Last Admin: 10/30/19 19:30 Dose: 42 mls/hr Ceftriaxone Sodium 2 gm/ (Dextrose) 100 mls @ 200 mls/hr IVPB DAILY [facility]; Protocol Last Admin: 10/31/19 09:26 Dose: 200 mls/hr Insulin Aspart (Novolog Vial Sliding Scale -) 1 vial SQ ACHS [facility]; Protocol Last Admin: 10/31/19 06:39 Dose: 2 unit Methylprednisolone Sodium Succinate (Solu-Medrol -) 60 mg IVPUSH Q12H [facility] Metoprolol Succinate (Toprol Xl -) 50 mg PO [facility] Last Admin: 10/30/19 21:33 Dose: 50 mg Nifedipine (Procardia Xl -) 30 mg PO DAILY [facility] Last Admin: 10/31/19 09:15 Dose: 30 mg Non-Formulary Medication (Budesonide [Pulmicort Flexhaler]) 90 mcg IH BID [facility] Quinapril HCl (Accupril -) 20 mg PO [facility] Last Admin: 10/30/19 21:37 Dose: 20 mg - Objective Vital Signs: Vital Signs Temperature 97.6 F 10/31/19 08:22 Pulse Rate 96 H 10/31/19 08:22 Respiratory Rate 22 H 10/31/19 08:25 Blood Pressure 134/76 10/31/19 08:22 O2 Sat by Pulse Oximetry (%) 97 10/31/19 08:25 Constitutional: Yes: Well Nourished, No Distress, Calm Eyes: Yes: Conjunctiva Clear HENT: Yes: Atraumatic, Other (dry mouth) Neck: Yes: Supple Cardiovascular: Yes: Regular Rate and Rhythm, Murmur (3/6 best heard at LUSB) Respiratory: Yes: Rhonchi (coarse breath sounds on left midway up the lung field. right side clear) Gastrointestinal: Yes: Normal Bowel Sounds, Soft, Abdomen, Obese. No: Distention, Tenderness, Rebound Genitourinary: Yes: WNL Extremities: Yes: Other (stasis dermatitis) Edema: No Neurological: Yes: Alert Psychiatric: Yes: Alert Labs: CBC, BMP 10/31/19 06:56 10/31/19 06:56 INR, PTT INR 0.99 (0.83-1.09) 10/29/19 16:00 Impression/Plan Impression/Plan: 75 yo M with a PMhx of HTN, HL, CAD s/p stent > 10 years ago, PVCs, NIDDM, emphysema, asthma, and b/l hip replacement, presenting with worsening cough with increasing green/yellow sputum production found to have positive urine antigen for strep pneumo. Acute Hypoxemic respiratory failure secondary to streptococcus LLL PNA/sepsis secondary to pneumonia continue bronchodilators continue ceftriaxone day 3 continue medrol but decrease to 60mg BID from 60mg q6h ID consult noted. Discussed with Dr. Aparicio leukocytosis worsened yesterday likely from steroids but it is starting to trend back down. Should improve as steroids are weaned Afebrile JUDY-likely prerenal Cr down to 1.2 today from 1.5 on admission continue NS @ 42ml/hr as patient still seems dry Torsemide on hold while being hydrated QTC prolongation Mg level high avoid meds that prolong qtc HTN contiue nifedipine continue quinapril continue metoprolol last 3 BPs have been acceptable CAD/HLD continue meds listed above continue lipitor continue plavix DM continue sliding scale insulin fingersticks should improve as steroids are weaned hx of asthma/emphysema contiue steroids continue pulmicort continue bronchodilators DVT PPx with HSQ TID Visit type - Emergency Visit Emergency Visit: Yes ED Registration Date: 10/29/19 Care time: The patient presented to the Emergency Department on the above date and was hospitalized for further evaluation of their emergent condition. - New Patient This patient is new to me today: Yes Date on this admission: 10/31/19 - Critical Care Critical Care patient: No
--- NOTE | 2019-10-31 11:55 | PN ---
Progress Note (short form) - Note Progress Note: s: no cp palps dizzy; sob better Current Medications Generic Name Dose Route Start Last Admin Trade Name Freq PRN Reason Stop Dose Admin Albuterol Sulfate 1 amp 10/29/19 18:56 Ventolin 0.083% Nebulizer Soln - NEB Q6H PRN SHORT OF BREATH/WHEEZING Albuterol/Ipratropium 1 amp 10/29/19 20:00 10/31/19 07:39 Duoneb - NEB 1 amp RTID [facility] Administration Atorvastatin Calcium 40 mg 10/29/19 22:00 10/30/19 21:33 Lipitor - PO 40 mg HS [facility] Administration Clopidogrel Bisulfate 75 mg 10/30/19 10:00 10/31/19 09:15 Plavix - PO 75 mg DAILY [facility] Administration Heparin Sodium (Porcine) 5,000 unit 10/30/19 06:00 10/31/19 06:39 Heparin - SQ 5,000 unit TID [facility] Administration Sodium Chloride 1,000 mls @ 42 mls/hr 10/29/19 19:00 10/30/19 19:30 Normal Saline - IV 42 mls/hr ASDIR [facility] Administration Ceftriaxone Sodium 2 gm/ 100 mls @ 200 mls/hr 10/31/19 10:00 10/31/19 09:26 Dextrose IVPB 200 mls/hr DAILY [facility] Administration Protocol Insulin Aspart 1 vial 10/29/19 22:00 10/31/19 06:39 Novolog Vial Sliding Scale - SQ 2 unit ACHS [facility] Administration Protocol Methylprednisolone Sodium Succinate 60 mg 10/31/19 11:45 Solu-Medrol - IVPUSH Q12H [facility] Metoprolol Succinate 50 mg 10/29/19 22:00 10/30/19 21:33 Toprol Xl - PO 50 mg HS [facility] Administration Nifedipine 30 mg 10/30/19 10:00 10/31/19 09:15 Procardia Xl - PO 30 mg DAILY [facility] Administration Non-Formulary Medication 90 mcg 10/29/19 22:00 Budesonide [Pulmicort Flexhaler] IH BID [facility] Quinapril HCl 20 mg 10/29/19 22:00 10/30/19 21:37 Accupril - PO 20 mg HS [facility] Administration Vital Signs Period Temp Pulse Resp BP Sys/Crenshaw Pulse Ox Last 24 Hr 97.6 F-98.1 F 81-109 18-22 123-154/71-84 96-97 Constitutional: Yes: Calm Eyes: Yes: Conjunctiva Clear Respiratory: Yes: Other (rales left base) Gastrointestinal: Yes: Soft JVD: No Heart Sounds: Yes: S1, S2 (reg) Edema: trace le edema bl Peripheral Pulses WNL: Yes Neurological: Yes: Alert, Oriented CBC, BMP 10/31/19 06:56 10/31/19 06:56 tele: sr Imaging - Results X-ray: Image Reviewed EKG: Image Reviewed Assessment/Plan IMP: SIRS, early sepsis secondary to CAP CAD w/ remote PCI COPD DM VPCs REC: 1. Cultures/ abx as per primary team. Would avoid Azithro if possible, can prolong QT 2. Keep K + adn Mg2+ repleted. 3. Echo 4. Suppl O2 5. Echo here unremarkable. Continue home cardiac meds for now. 6. DVT prophylaxis. Will follow. Coverage for Dr. Yip
--- NOTE | 2019-10-31 13:13 | EKG ---
Test Reason : Blood Pressure : / mmHG Vent. Rate : 097 BPM Atrial Rate : 097 BPM P-R Int : 178 ms QRS Dur : 084 ms QT Int : 338 ms P-R-T Axes : 039 011 -37 degrees QTc Int : 429 ms NORMAL SINUS RHYTHM NONSPECIFIC ST AND T WAVE ABNORMALITY ABNORMAL ECG WHEN COMPARED WITH ECG OF 30-OCT-2019 09:06, NO SIGNIFICANT CHANGE WAS FOUND Confirmed by ALEXA OSORIO MD ([id number]) on 10/31/2019 1:13:35 PM Referred By: Paul HILLS Confirmed By:ALEXA OSORIO MD
[2019-10-31 13:28] LABS: ANISOCYTOSIS 1+; MACROCYTOSIS 0; OVALOCYTE 1+
[2019-10-31 13:34] LABS: PLATELET ESTIMATE NORMAL
--- NOTE | 2019-10-31 15:16 | PN ---
Progress Note (short form) - Note Progress Note: PULMONARY Reports some hemoptysis. Fever curve trending down. Vital Signs Period Temp Pulse Resp BP Sys/Crenshaw Pulse Ox Last 24 Hr 97.6 F-98.1 F 81-109 18-22 123-154/71-84 96-97 Gen: NAD at rest Heart: RRR Lung: scattered wheezes Abd: soft, nontender Ext: no edema CBC, BMP 10/31/19 06:56 10/31/19 06:56 Active Medications Albuterol Sulfate (Ventolin 0.083% Nebulizer Soln -) 1 amp NEB Q6H PRN PRN Reason: SHORT OF BREATH/WHEEZING Albuterol/Ipratropium (Duoneb -) 1 amp NEB RTID [facility] Last Admin: 10/31/19 14:19 Dose: 1 amp Atorvastatin Calcium (Lipitor -) 40 mg PO HS [facility] Last Admin: 10/30/19 21:33 Dose: 40 mg Clopidogrel Bisulfate (Plavix -) 75 mg PO DAILY [facility] Last Admin: 10/31/19 09:15 Dose: 75 mg Heparin Sodium (Porcine) (Heparin -) 5,000 unit SQ TID [facility] Last Admin: 10/31/19 14:13 Dose: 5,000 unit Sodium Chloride (Normal Saline -) 1,000 mls @ 42 mls/hr IV ASDIR [facility] Last Admin: 10/30/19 19:30 Dose: 42 mls/hr Ceftriaxone Sodium 2 gm/ (Dextrose) 100 mls @ 200 mls/hr IVPB DAILY [facility]; Protocol Last Admin: 10/31/19 09:26 Dose: 200 mls/hr Insulin Aspart (Novolog Vial Sliding Scale -) 1 vial SQ ACHS [facility]; Protocol Last Admin: 10/31/19 11:15 Dose: Not Given Methylprednisolone Sodium Succinate (Solu-Medrol -) 60 mg IVPUSH Q12H [facility] Last Admin: 10/31/19 14:13 Dose: 60 mg Metoprolol Succinate (Toprol Xl -) 50 mg PO HS [facility] Last Admin: 10/30/19 21:33 Dose: 50 mg Nifedipine (Procardia Xl -) 30 mg PO DAILY [facility] Last Admin: 10/31/19 09:15 Dose: 30 mg Non-Formulary Medication (Budesonide [Pulmicort Flexhaler]) 90 mcg IH BID [facility] Quinapril HCl (Accupril -) 20 mg PO HS [facility] Last Admin: 10/30/19 21:37 Dose: 20 mg A/P Pneumonia Hemoptysis Sepsis Lactic Acidosis Acute Kidney Injury Acute COPD Exacerbation CAD DM - continue antibiotics - f/u cultures - IVF - monitor urine output, creatinine - medrol taper - inhaled bronchodilators - o2 to keep Spo2 >90% - monitor/quantify hemoptysis - DVT prophylaxis
[2019-10-31] MEDS: SODIUM CHLORIDE 1,000 ML IV SCH ×2 (17:43→18:00)
[2019-10-31] MEDS ORDERED: PT OWN MED DRAWER 7, Y5N ONE (21:46)
[2019-10-31] MEDS: ATORVASTATIN CA 40 MG TABLET (FP) PO SCH (21:51)
[2019-10-31] MEDS: QUINAPRIL HCL 20 MG TABLET (FP) PO SCH (21:51)
[2019-11-01] MEDS: methylPREDNISolone NA SUCC 40 MG/1 ML VIAL IVPUSH SCH ×2 (00:30→11:02)
[2019-11-01] MEDS: HEPARIN NA (PORCINE) 5,000 UNITS/ML 1ML VIAL SQ SCH ×3 (06:49→21:22)
[2019-11-01] MEDS: INSULIN SLIDING SCALE (NOVOLOG) 1 VIAL SQ SCH ×4 (06:50→21:30)
[2019-11-01 07:24] LABS: BASO % 0.1 % (0-2.0); HEMATOCRIT 41.5 % (35.4-49); HEMOGLOBIN 13.3 GM/dL (11.7-16.9); LYMPH % 2.7 % (8-40); MCH 29.1 pg (25.7-33.7); MEAN CELL VOLUME 91.1 fl (80-96); MEAN PLT VOLUME 10.6 fl (7.5-11.1); MONO % 2.5 % (3.8-10.2); NEUT % 94.7 % (42.8-82.8); PLATELET COUNT 213 K/MM3 (134-434); RBC 4.56 M/mm3 (4.00-5.60); RDW 15.2 % (11.9-15.9); WHITE BLOOD COUNT 14.5 K/mm3 (4.0-10.0)
[2019-11-01] MEDS: ALBUTEROL SO4 2.5/IPRATROPIUM 0.5 INH SOL 3 ML VIAL.NEB. NEB SCH ×3 (07:38→20:42)
[2019-11-01 07:43] LABS: ALBUMIN 2.9 g/dl (3.4-5.0); CALCIUM 9.2 mg/dL (8.5-10.1); CREATININE 1.1 mg/dL (0.55-1.3); MAGNESIUM 2.8 mg/dL (1.8-2.4); POTASSIUM 4.7 mmol/L (3.5-5.1); TOT PROT 6.1 g/dl (6.4-8.2)
[2019-11-01] MEDS ORDERED: DEXTROSE 5%-WATER 100 ML IVPB ONE (08:45)
[2019-11-01] MEDS: CEFTRIAXONE 2 GM in DEXTROSE 5%-WATER 100 ML IVPB SCH (08:59)
[2019-11-01] MEDS: CLOPIDOGREL BISULFATE 75 MG TABLET (FP) PO SCH (08:59)
[2019-11-01] MEDS: NIFEdipine E.R. 30 MG TABLET PO SCH (08:59)
--- NOTE | 2019-11-01 09:19 | PN ---
Progress Note, Physician History of Present Illness: patient seen and examined at bedside. He endorses he is feeling much better today. His cough has improved and he hasnt had any blood in his sputum. He showed me his sputum in a cup at bedside and it was a rust color without blood. Frequency of sputum coming up has decreased as well. He denies nausea vomiting fever chills chest pain diarrhea or urinary symptoms. Endorses constipation and is agreeable to miralax today. Urine antigens positive for strep pneumo. - Current Medication List Current Medications: Active Medications Albuterol Sulfate (Ventolin 0.083% Nebulizer Soln -) 1 amp NEB Q6H PRN PRN Reason: SHORT OF BREATH/WHEEZING Albuterol/Ipratropium (Duoneb -) 1 amp NEB RTID [facility] Last Admin: 11/01/19 07:38 Dose: 1 amp Atorvastatin Calcium (Lipitor -) 40 mg PO HS [facility] Last Admin: 10/31/19 21:51 Dose: 40 mg Clopidogrel Bisulfate (Plavix -) 75 mg PO DAILY [facility] Last Admin: 11/01/19 08:59 Dose: 75 mg Heparin Sodium (Porcine) (Heparin -) 5,000 unit SQ TID [facility] Last Admin: 11/01/19 06:49 Dose: 5,000 unit Sodium Chloride (Normal Saline -) 1,000 mls @ 42 mls/hr IV ASDIR [facility] Last Admin: 10/31/19 18:00 Dose: Not Given Ceftriaxone Sodium 2 gm/ (Dextrose) 100 mls @ 200 mls/hr IVPB DAILY [facility]; Protocol Last Admin: 11/01/19 08:59 Dose: 200 mls/hr Insulin Aspart (Novolog Vial Sliding Scale -) 1 vial SQ ACHS [facility]; Protocol Last Admin: 11/01/19 06:50 Dose: 4 unit Methylprednisolone Sodium Succinate (Solu-Medrol -) 60 mg IVPUSH Q12H [facility] Last Admin: 11/01/19 00:30 Dose: 60 mg Metoprolol Succinate (Toprol Xl -) 50 mg PO HS [facility] Last Admin: 10/31/19 21:51 Dose: 50 mg Nifedipine (Procardia Xl -) 30 mg PO DAILY [facility] Last Admin: 11/01/19 08:59 Dose: 30 mg Non-Formulary Medication (Budesonide [Pulmicort Flexhaler]) 90 mcg IH BID [facility] Quinapril HCl (Accupril -) 20 mg PO HS [facility] Last Admin: 10/31/19 21:51 Dose: 20 mg - Objective Vital Signs: Vital Signs Temperature 98.2 F 11/01/19 08:57 Pulse Rate 91 H 11/01/19 08:57 Respiratory Rate 11/01/19 08:57 Blood Pressure 141/84 11/01/19 08:57 O2 Sat by Pulse Oximetry (%) 96 11/01/19 08:23 Constitutional: Yes: Well Nourished, No Distress, Calm Eyes: Yes: Conjunctiva Clear HENT: Yes: Atraumatic, Other (oral mucosa not as dry as yesterday) Neck: Yes: Supple Cardiovascular: Yes: Regular Rate and Rhythm, Murmur (3/6 best heard at LUSB) Respiratory: Yes: Rales (bilateral bases L>R. right side has decreased breath sounds when compared to left) Gastrointestinal: Yes: Normal Bowel Sounds, Soft, Abdomen, Obese. No: Distention, Tenderness, Rebound Genitourinary: Yes: WNL Extremities: Yes: Other (stasis dermatitis) Edema: No Neurological: Yes: Alert Psychiatric: Yes: Alert Labs: CBC, BMP 11/01/19 06:35 11/01/19 06:35 INR, PTT INR 0.99 (0.83-1.09) 10/29/19 16:00 Impression/Plan Impression/Plan: 75 yo M with a PMhx of HTN, HL, CAD s/p stent > 10 years ago, PVCs, NIDDM, emphysema, asthma, and b/l hip replacement, presenting with worsening cough with increasing green/yellow sputum production found to have positive urine antigen for strep pneumo. Acute Hypoxemic respiratory failure secondary to streptococcus LLL PNA/sepsis secondary to pneumonia continue bronchodilators continue ceftriaxone (as of today got a total of 4 days ABx but this is day 2 of ceftriaxone per DEC) continue medrol but decrease to 40mg BID from 60mg BID ID consult appreciated. leukocytosis improved today and is 14.5K today down from 19.5K yesterday Afebrile JUDY-likely prerenal Cr down to 1.1 today from 1.5 on admission BUN 32 patient is drinking a lot of water per patient and RN DC IVF QTC prolongation Mg level high avoid meds that prolong qtc HTN contiue nifedipine continue quinapril continue metoprolol BPs acceptable CAD/HLD continue meds listed above continue lipitor continue plavix DM continue sliding scale insulin fingersticks should improve as steroids are weaned hx of asthma/emphysema continue steroids continue pulmicort continue bronchodilators DVT PPx with HSQ TID Visit type - Emergency Visit Emergency Visit: Yes ED Registration Date: 10/29/19 Care time: The patient presented to the Emergency Department on the above date and was hospitalized for further evaluation of their emergent condition. - New Patient This patient is new to me today: No - Critical Care Critical Care patient: No
--- NOTE | 2019-11-01 10:21 | PN ---
Progress Note (short form) - Note Progress Note: s: no cp palps dizzy; sob better Current Medications Generic Name Dose Route Start Last Admin Trade Name Freq PRN Reason Stop Dose Admin Albuterol Sulfate 1 amp 10/29/19 18:56 Ventolin 0.083% Nebulizer Soln - NEB Q6H PRN SHORT OF BREATH/WHEEZING Albuterol/Ipratropium 1 amp 10/29/19 20:00 11/01/19 07:38 Duoneb - NEB 1 amp RTID [facility]INE Administration Atorvastatin Calcium 40 mg 10/29/19 22:00 10/31/19 21:51 Lipitor - PO 40 mg HS [facility]INE Administration Clopidogrel Bisulfate 75 mg 10/30/19 10:00 11/01/19 08:59 Plavix - PO 75 mg DAILY [facility] Administration Heparin Sodium (Porcine) 5,000 unit 10/30/19 06:00 11/01/19 06:49 Heparin - SQ 5,000 unit TID [facility]INE Administration Sodium Chloride 1,000 mls @ 42 mls/hr 10/29/19 19:00 10/31/19 18:00 Normal Saline - IV Not Given ASDIR [facility]INE Ceftriaxone Sodium 2 gm/ 100 mls @ 200 mls/hr 10/31/19 10:00 11/01/19 08:59 Dextrose IVPB 200 mls/hr DAILY [facility] Administration Protocol Insulin Aspart 1 vial 10/29/19 22:00 11/01/19 06:50 Novolog Vial Sliding Scale - SQ 4 unit ACHS [facility]INE Administration Protocol Methylprednisolone Sodium Succinate 60 mg 10/31/19 11:45 11/01/19 00:30 Solu-Medrol - IVPUSH 60 mg Q12H [facility]INE Administration Metoprolol Succinate 50 mg 10/29/19 22:00 10/31/19 21:51 Toprol Xl - PO 50 mg HS [facility]INE Administration Nifedipine 30 mg 10/30/19 10:00 11/01/19 08:59 Procardia Xl - PO 30 mg DAILY [facility] Administration Non-Formulary Medication 90 mcg 10/29/19 22:00 Budesonide [Pulmicort Flexhaler] IH BID [facility] Quinapril HCl 20 mg 10/29/19 22:00 10/31/19 21:51 Accupril - PO 20 mg HS [facility]INE Administration Vital Signs Period Temp Pulse Resp BP Sys/Crenshaw Pulse Ox Last 24 Hr 97.7 F-98.2 F 73-105 18-20 124-141/68-84 93-96 Constitutional: Yes: Calm Eyes: Yes: Conjunctiva Clear Respiratory: Yes: Other (rales left base) Gastrointestinal: Yes: Soft JVD: No Heart Sounds: Yes: S1, S2 (reg) Edema: trace le edema bl Peripheral Pulses WNL: Yes Neurological: Yes: Alert, Oriented CBC, BMP 11/01/19 06:35 11/01/19 06:35 tele: sr Imaging - Results X-ray: Image Reviewed EKG: Image Reviewed Assessment/Plan IMP: SIRS, early sepsis secondary to CAP CAD w/ remote PCI COPD DM VPCs REC: 1. Cultures/ abx as per primary team. 4. Suppl O2 prn 5. Echo here unremarkable. Continue home cardiac meds for now. 6. DVT prophylaxis. Coverage for Dr. Yip
[2019-11-01 11:47] LABS: ANISOCYTOSIS 1+; MACROCYTOSIS 0; OVALOCYTE 1+; PLATELET ESTIMATE NORMAL; TARGET CELLS 1+
--- NOTE | 2019-11-01 13:31 | PN ---
Progress Note (short form) - Note Progress Note: PULMONARY Still some hemoptysis. Fever curve trending down. Vital Signs Period Temp Pulse Resp BP Sys/Crenshaw Pulse Ox Last 24 Hr 97.7 F-98.2 F 73-105 18-20 124-141/68-84 93-96 Gen: NAD at rest Heart: RRR Lung: scattered wheezes Abd: soft, nontender Ext: no edema CBC, BMP 11/01/19 06:35 11/01/19 06:35 Active Medications Albuterol Sulfate (Ventolin 0.083% Nebulizer Soln -) 1 amp NEB Q6H PRN PRN Reason: SHORT OF BREATH/WHEEZING Albuterol/Ipratropium (Duoneb -) 1 amp NEB RTID [facility] Last Admin: 11/01/19 07:38 Dose: 1 amp Atorvastatin Calcium (Lipitor -) 40 mg PO HS [facility] Last Admin: 10/31/19 21:51 Dose: 40 mg Clopidogrel Bisulfate (Plavix -) 75 mg PO DAILY [facility] Last Admin: 11/01/19 08:59 Dose: 75 mg Heparin Sodium (Porcine) (Heparin -) 5,000 unit SQ TID [facility] Last Admin: 11/01/19 06:49 Dose: 5,000 unit Sodium Chloride (Normal Saline -) 1,000 mls @ 42 mls/hr IV ASDIR [facility] Last Admin: 10/31/19 18:00 Dose: Not Given Ceftriaxone Sodium 2 gm/ (Dextrose) 100 mls @ 200 mls/hr IVPB DAILY [facility]; Protocol Last Admin: 11/01/19 08:59 Dose: 200 mls/hr Insulin Aspart (Novolog Vial Sliding Scale -) 1 vial SQ ACHS [facility]; Protocol Last Admin: 11/01/19 11:04 Dose: 6 unit Methylprednisolone Sodium Succinate (Solu-Medrol -) 60 mg IVPUSH Q12H [facility] Last Admin: 11/01/19 11:02 Dose: 60 mg Metoprolol Succinate (Toprol Xl -) 50 mg PO HS [facility] Last Admin: 10/31/19 21:51 Dose: 50 mg Nifedipine (Procardia Xl -) 30 mg PO DAILY [facility] Last Admin: 11/01/19 08:59 Dose: 30 mg Non-Formulary Medication (Budesonide [Pulmicort Flexhaler]) 90 mcg IH BID [facility] Quinapril HCl (Accupril -) 20 mg PO HS [facility] Last Admin: 10/31/19 21:51 Dose: 20 mg A/P Pneumonia Hemoptysis Sepsis Lactic Acidosis Acute Kidney Injury Acute COPD Exacerbation CAD DM - continue antibiotics - IVF - monitor urine output, creatinine - medrol taper - inhaled bronchodilators - o2 to keep Spo2 >90% - monitor/quantify hemoptysis - DVT prophylaxis
[2019-11-01] MEDS: QUINAPRIL HCL 20 MG TABLET (FP) PO SCH (21:22)
[2019-11-01] MEDS: ATORVASTATIN CA 40 MG TABLET (FP) PO SCH (21:22)
[2019-11-02] MEDS: methylPREDNISolone NA SUCC 40 MG/1 ML VIAL IVPUSH SCH (00:21)
[2019-11-02] MEDS ORDERED: BENZOCAINE/MENTH/CETYLPYRD CL 1 EACH LOZENGE MM PRN (04:18)
[2019-11-02] MEDS: SODIUM CHLORIDE 1,000 ML IV SCH (05:31)
[2019-11-02] MEDS: HEPARIN NA (PORCINE) 5,000 UNITS/ML 1ML VIAL SQ SCH ×3 (05:37→22:09)
[2019-11-02] MEDS: INSULIN SLIDING SCALE (NOVOLOG) 1 VIAL SQ SCH ×4 (06:08→22:10)
[2019-11-02 07:10] LABS: BASO % 0.2 % (0-2.0); HEMATOCRIT 42.7 % (35.4-49); HEMOGLOBIN 13.9 GM/dL (11.7-16.9); LYMPH % 3.1 % (8-40); MCH 29.1 pg (25.7-33.7); MCHC 32.5 g/dl (32.0-35.9); MEAN CELL VOLUME 89.7 fl (80-96); MEAN PLT VOLUME 10.5 fl (7.5-11.1); NEUT % 94.7 % (42.8-82.8); PLATELET COUNT 223 K/MM3 (134-434); RBC 4.76 M/mm3 (4.00-5.60); WHITE BLOOD COUNT 12.4 K/mm3 (4.0-10.0)
[2019-11-02 07:14] LABS: BLOOD UREA NITROGEN 35.2 mg/dL (7-18); CALCIUM 9.2 mg/dL (8.5-10.1); CREATININE 1.1 mg/dL (0.55-1.3); MAGNESIUM 2.8 mg/dL (1.8-2.4); POTASSIUM 4.6 mmol/L (3.5-5.1)
--- NOTE | 2019-11-02 07:57 | PN ---
Teaching Attending Note Name of Resident: Gloria Pace ATTENDING PHYSICIAN STATEMENT I saw and evaluated the patient. I reviewed the resident's note and discussed the case with the resident. I agree with the resident's findings and plan as documented. SUBJECTIVE: Patient feels improved hemodynamically stable, walking comfortably OBJECTIVE: Vital Signs Temperature 98.3 F 11/02/19 02:00 Pulse Rate 66 11/02/19 02:00 Respiratory Rate 20 11/02/19 02:00 Blood Pressure 116/70 11/02/19 02:00 O2 Sat by Pulse Oximetry (%) 95 11/01/19 20:32 General: Elderly man, comfortable, not in distress HEENT; mucous membranes moist, no anemia, no jaundice, PERRLA, no nystagmus Neck: No JVD, supple, no bruit, thyroid palpably normal, normal carotid pulsations. Chest: Nontender, left basal rales, CVS: S1-S2 regular no murmur/gallop/rub Abdomen: Nondistended, soft, bowel sounds present. Extremities: No edema., No cough tenderness, pulses present [employer]: AO X3 , no gross motor sensory deficit CBC, BMP 11/02/19 05:10 11/02/19 05:10 Active Medications Albuterol Sulfate (Ventolin 0.083% Nebulizer Soln -) 1 amp NEB Q6H PRN PRN Reason: SHORT OF BREATH/WHEEZING Albuterol/Ipratropium (Duoneb -) 1 amp NEB RTID [facility] Last Admin: 11/01/19 20:42 Dose: 1 amp Atorvastatin Calcium (Lipitor -) 40 mg PO HS [facility] Last Admin: 11/01/19 21:22 Dose: 40 mg Benzocaine/Menthol (Cepacol Lozenge -) 1 each MM Q2H PRN PRN Reason: SORE THROAT Last Admin: 11/02/19 05:42 Dose: 1 each Clopidogrel Bisulfate (Plavix -) 75 mg PO DAILY [facility] Last Admin: 11/01/19 08:59 Dose: 75 mg Heparin Sodium (Porcine) (Heparin -) 5,000 unit SQ TID [facility] Last Admin: 11/02/19 05:37 Dose: 5,000 unit Sodium Chloride (Normal Saline -) 1,000 mls @ 42 mls/hr IV ASDIR [facility] Last Admin: 11/02/19 05:31 Dose: Not Given Ceftriaxone Sodium 2 gm/ (Dextrose) 100 mls @ 200 mls/hr IVPB DAILY [facility]; Protocol Last Admin: 11/01/19 08:59 Dose: 200 mls/hr Insulin Aspart (Novolog Vial Sliding Scale -) 1 vial SQ ACHS [facility]; Protocol Last Admin: 11/02/19 06:08 Dose: 4 unit Methylprednisolone Sodium Succinate (Solu-Medrol -) 60 mg IVPUSH Q12H [facility] Last Admin: 11/02/19 00:21 Dose: 60 mg Metoprolol Succinate (Toprol Xl -) 50 mg PO HS [facility] Last Admin: 11/01/19 21:22 Dose: 50 mg Nifedipine (Procardia Xl -) 30 mg PO DAILY [facility] Last Admin: 11/01/19 08:59 Dose: 30 mg Non-Formulary Medication (Budesonide [Pulmicort Flexhaler]) 90 mcg IH BID [facility] Quinapril HCl (Accupril -) 20 mg PO [facility] Last Admin: 11/01/19 21:22 Dose: 20 mg X-ray chest: Left basilar infiltrate ASSESSMENT AND PLAN:74M CAD , remote PCI, COPD, DM presents to ER 1 day fever, chills and cough. Febrile 103F, CXR left basilar consolidation Impression: Comminuted acquired bacterial pneumonia responding to current therapy, can be switched to p.o. Ceftin and p.o. prednisone please confirm with the pulmonary consult, 6-minute walk to evaluate desaturation. Problem List - Problems (1) Pneumonia Assessment/Plan: Community-acquired responding to current therapy continue ceftriaxone, patient is doing well T WBC is trending normal, can be switched to p.o. Ceftin after discussing with pulmonary consult, can be switched to p.o. prednisone 40 mg daily, PT evaluation and 6-minute walk. Problems reviewed: Yes Code(s): J18.9 - PNEUMONIA, UNSPECIFIED ORGANISM Qualifiers: Pneumonia type: due to unspecified organism Laterality: left Lung location: lower lobe of lung Qualified Code(s): J18.9 - Pneumonia, unspecified organism (2) COPD (chronic obstructive pulmonary disease) Assessment/Plan: COPD exacerbation due to respiratory tract infection will discuss with pulmonary consult switch to p.o. prednisone Problems reviewed: Yes Code(s): J44.9 - CHRONIC OBSTRUCTIVE PULMONARY DISEASE, UNSPECIFIED (3) CAD (coronary artery disease) Assessment/Plan: At present asymptomatic continue home medications evaluated by cardiology Problems reviewed: Yes Code(s): I25.10 - ATHSCL HEART DISEASE OF [place] CORONARY ARTERY W/O ANG PCTRS (4) CAD (coronary artery disease) Assessment/Plan: History of CAD status post a stent at present is comfortable continue all home medication Problems reviewed: Yes Code(s): I25.10 - ATHSCL HEART DISEASE OF [place] CORONARY ARTERY W/O ANG PCTRS (5) Sleep apnea Assessment/Plan: Not using CPAP at home Code(s): G47.30 - SLEEP APNEA, UNSPECIFIED (6) Hypertension Assessment/Plan: Well-controlled continue all home medications Problems reviewed: Yes Code(s): I10 - ESSENTIAL (PRIMARY) HYPERTENSION
[2019-11-02] MEDS: ALBUTEROL SO4 2.5/IPRATROPIUM 0.5 INH SOL 3 ML VIAL.NEB. NEB SCH ×3 (08:25→20:27)
[2019-11-02] MEDS ORDERED: DEXTROSE 5%-WATER 100 ML IVPB ONE (10:06)
[2019-11-02] MEDS ORDERED: PT OWN MED DRAWER 7, Y5N ONE ×2 (10:06→21:43)
[2019-11-02] MEDS: CEFTRIAXONE 2 GM in DEXTROSE 5%-WATER 100 ML IVPB SCH (10:23)
[2019-11-02] MEDS: CLOPIDOGREL BISULFATE 75 MG TABLET (FP) PO SCH (10:23)
[2019-11-02] MEDS: NIFEdipine E.R. 30 MG TABLET PO SCH (10:23)
--- NOTE | 2019-11-02 10:44 | PN ---
Progress Note (short form) - Note Progress Note: s: no cp palps dizzy; sob better Current Medications Generic Name Dose Route Start Last Admin Trade Name Freq PRN Reason Stop Dose Admin Albuterol Sulfate 1 amp 10/29/19 18:56 Ventolin 0.083% Nebulizer Soln - NEB Q6H PRN SHORT OF BREATH/WHEEZING Albuterol/Ipratropium 1 amp 10/29/19 20:00 11/02/19 08:25 Duoneb - NEB 1 amp RTID [facility] Administration Atorvastatin Calcium 40 mg 10/29/19 22:00 11/01/19 21:22 Lipitor - PO 40 mg HS [facility] Administration Benzocaine/Menthol 1 each 11/02/19 04:18 11/02/19 05:42 Cepacol Lozenge - MM 1 each Q2H PRN Administration SORE THROAT Clopidogrel Bisulfate 75 mg 10/30/19 10:00 11/02/19 10:23 Plavix - PO 75 mg DAILY [facility] Administration Heparin Sodium (Porcine) 5,000 unit 10/30/19 06:00 11/02/19 05:37 Heparin - SQ 5,000 unit TID [facility] Administration Sodium Chloride 1,000 mls @ 42 mls/hr 10/29/19 19:00 11/02/19 05:31 Normal Saline - IV Not Given ASDIR [facility] Ceftriaxone Sodium 2 gm/ 100 mls @ 200 mls/hr 10/31/19 10:00 11/02/19 10:23 Dextrose IVPB 200 mls/hr DAILY [facility] Administration Protocol Insulin Aspart 1 vial 10/29/19 22:00 11/02/19 06:08 Novolog Vial Sliding Scale - SQ 4 unit ACHS [facility] Administration Protocol Methylprednisolone Sodium Succinate 60 mg 10/31/19 11:45 11/02/19 00:21 Solu-Medrol - IVPUSH 60 mg Q12H [facility] Administration Metoprolol Succinate 50 mg 10/29/19 22:00 11/01/19 21:22 Toprol Xl - PO 50 mg HS [facility] Administration Nifedipine 30 mg 10/30/19 10:00 11/02/19 10:23 Procardia Xl - PO 30 mg DAILY [facility] Administration Non-Formulary Medication 90 mcg 10/29/19 22:00 Budesonide [Pulmicort Flexhaler] IH BID [facility] Quinapril HCl 20 mg 10/29/19 22:00 11/01/19 21:22 Accupril - PO 20 mg HS [facility] Administration Vital Signs Period Temp Pulse Resp BP Sys/Crenshaw Pulse Ox Last 24 Hr 97.5 F-98.3 F 66-107 18-20 116-148/69-81 95-96 Constitutional: Yes: Calm Eyes: Yes: Conjunctiva Clear Respiratory: Yes: Other (rales left base) Gastrointestinal: Yes: Soft JVD: No Heart Sounds: Yes: S1, S2 (reg) Edema: trace le edema bl Peripheral Pulses WNL: Yes Neurological: Yes: Alert, Oriented CBC, BMP 11/02/19 05:10 11/02/19 05:10 Imaging - Results X-ray: Image Reviewed EKG: Image Reviewed Assessment/Plan IMP: SIRS, early sepsis secondary to CAP CAD w/ remote PCI COPD DM VPCs REC: 1. Cultures/ abx as per primary team. 4. Suppl O2 prn 5. Echo here unremarkable. Continue home cardiac meds for now. 6. DVT prophylaxis. Coverage for Dr. Yip
--- NOTE | 2019-11-02 11:14 | PN ---
Progress Note (short form) - Note Progress Note: Breathing feels better. No hemoptysis. Less SOB. No CP. Intake & Output 10/30/19 10/31/19 11/01/19 11/02/19 23:59 23:59 23:59 23:59 Intake Total 9597 468 7286 Output Total 600 1100 850 Balance 782 -860 1426 Weight 223 lb 8 oz Last Vital Signs Temp Pulse Resp BP Pulse Ox 98.3 F 66 20 144/76 96 11/02/19 08:49 11/02/19 08:49 11/02/19 09:00 11/02/19 08:49 11/02/19 09:00 Active Medications Albuterol Sulfate (Ventolin 0.083% Nebulizer Soln -) 1 amp NEB Q6H PRN PRN Reason: SHORT OF BREATH/WHEEZING Albuterol/Ipratropium (Duoneb -) 1 amp NEB RTID [facility] Last Admin: 11/02/19 08:25 Dose: 1 amp Atorvastatin Calcium (Lipitor -) 40 mg PO HS [facility] Last Admin: 11/01/19 21:22 Dose: 40 mg Benzocaine/Menthol (Cepacol Lozenge -) 1 each MM Q2H PRN PRN Reason: SORE THROAT Last Admin: 11/02/19 05:42 Dose: 1 each Clopidogrel Bisulfate (Plavix -) 75 mg PO DAILY [facility] Last Admin: 11/02/19 10:23 Dose: 75 mg Heparin Sodium (Porcine) (Heparin -) 5,000 unit SQ TID [facility] Last Admin: 11/02/19 05:37 Dose: 5,000 unit Sodium Chloride (Normal Saline -) 1,000 mls @ 42 mls/hr IV ASDIR [facility] Last Admin: 11/02/19 05:31 Dose: Not Given Ceftriaxone Sodium 2 gm/ (Dextrose) 100 mls @ 200 mls/hr IVPB DAILY [facility]; Protocol Last Admin: 11/02/19 10:23 Dose: 200 mls/hr Insulin Aspart (Novolog Vial Sliding Scale -) 1 vial SQ ACHS [facility]; Protocol Last Admin: 11/02/19 06:08 Dose: 4 unit Metoprolol Succinate (Toprol Xl -) 50 mg PO HS [facility] Last Admin: 11/01/19 21:22 Dose: 50 mg Nifedipine (Procardia Xl -) 30 mg PO DAILY [facility] Last Admin: 11/02/19 10:23 Dose: 30 mg Non-Formulary Medication (Budesonide [Pulmicort Flexhaler]) 90 mcg IH BID [facility] Prednisone (Deltasone -) 40 mg PO DAILY [facility] Quinapril HCl (Accupril -) 20 mg PO HS [facility] Last Admin: 11/01/19 21:22 Dose: 20 mg Gen: NAD at rest Heart: RRR Lung: Few scattered rhonchi, no wheezes Abd: soft, nontender Ext: no edema Laboratory Results - last 24 hr 11/01/19 11/01/19 11/01/19 06:35 16:59 21:29 WBC RBC Hgb Hct MCV MCH MCHC RDW Plt Count MPV Absolute Neuts (auto) Neutrophils % Neutrophils % (Manual) 86.0 H Band Neutrophils % 10.0 Lymphocytes % Lymphocytes % (Manual) 0.0 L Monocytes % Monocytes % (Manual) 1 L Eosinophils % Eosinophils % (Manual) 0.0 Basophils % Basophils % (Manual) 0.0 Myelocytes % (Man) 0 Promyelocytes % (Man) 0 Blast Cells % (Manual) 0 Nucleated RBC % 0 Metamyelocytes 3 H D Hypochromia 0 Platelet Estimate Normal Platelet Comment Present Polychromasia 1+ Poikilocytosis 1+ Anisocytosis 1+ Microcytosis 1+ Macrocytosis 0 Target Cells 1+ Ovalocytes 1+ Carlos Cells 1+ Sodium Potassium Chloride Carbon Dioxide Anion Gap BUN Creatinine Est GFR (CKD-EPI)AfAm Est GFR (CKD-EPI)NonAf POC Glucometer 325 267 Random Glucose Calcium Magnesium 11/02/19 11/02/19 11/02/19 05:10 05:10 05:36 WBC 12.4 H RBC 4.76 Hgb 13.9 Hct 42.7 MCV 89.7 MCH 29.1 MCHC 32.5 RDW 15.0 Plt Count 223 MPV 10.5 Absolute Neuts (auto) 11.7 H Neutrophils % 94.7 H Neutrophils % (Manual) Band Neutrophils % Lymphocytes % 3.1 L Lymphocytes % (Manual) Monocytes % 2.0 L Monocytes % (Manual) Eosinophils % 0.0 Eosinophils % (Manual) Basophils % 0.2 Basophils % (Manual) Myelocytes % (Man) Promyelocytes % (Man) Blast Cells % (Manual) Nucleated RBC % 0 Metamyelocytes Hypochromia Platelet Estimate Platelet Comment Polychromasia Poikilocytosis Anisocytosis Microcytosis Macrocytosis Target Cells Ovalocytes [place] Cells Sodium 143 Potassium 4.6 Chloride 111 H Carbon Dioxide 25 Anion Gap 7 L BUN 35.2 H Creatinine 1.1 Est GFR (CKD-EPI)AfAm 77.32 Est GFR (CKD-EPI)NonAf 66.71 POC Glucometer 222 Random Glucose 240 H Calcium 9.2 Magnesium 2.8 H A/P Pneumonia Hemoptysis Sepsis Lactic Acidosis Acute Kidney Injury Acute COPD Exacerbation CAD DM - ABX - monitor urine output, creatinine - Prednisone - inhaled bronchodilators - O2 to keep Spo2 >90% - monitor/quantify hemoptysis - DVT prophylaxis - Check Pre and Post ambulation saturation Dr Jiang Problem List - Problems (1) COPD (chronic obstructive pulmonary disease) Code(s): J44.9 - CHRONIC OBSTRUCTIVE PULMONARY DISEASE, UNSPECIFIED (2) Sleep apnea Code(s): G47.30 - SLEEP APNEA, UNSPECIFIED (3) Obesity Code(s): E66.9 - OBESITY, UNSPECIFIED (4) Pneumonia Code(s): J18.9 - PNEUMONIA, UNSPECIFIED ORGANISM Qualifiers: Pneumonia type: due to unspecified organism Laterality: left Lung location: lower lobe of lung Qualified Code(s): J18.9 - Pneumonia, unspecified organism
--- NOTE | 2019-11-02 11:39 | PN ---
Physical Exam: SUBJECTIVE: Patient seen and examined. Says he is feeling a lot better today with his breathing improved. Says he is bringing up less sputum, less hemoptysis. No events overnight. OBJECTIVE: Vital Signs Period Temp Pulse Resp BP Sys/Crenshaw Pulse Ox Last 24 Hr 97.5 F-98.3 F 66-107 18-20 116-148/69-81 95-96 GENERAL: a/o x 3, in NAD, comfortable on bipap HEAD: Normal with no signs of trauma. EYES: Pupils equal, round and reactive to light, extraocular movements intact EARS, NOSE, THROAT:oropharynx clear without exudates. NECK: supple without lymphadenopathy, JVD, or masses. LUNGS: L sided rales HEART: tachy, regular rhythm ABDOMEN: Soft, nontender, not distended, normoactive bowel sounds LOWER EXTREMITIES: 2+ pulses. + edema b/l NEUROLOGICAL: Cranial nerves II-XII intact Laboratory Results - last 24 hr 11/01/19 11/01/19 11/01/19 06:35 16:59 21:29 WBC RBC Hgb Hct MCV MCH MCHC RDW Plt Count MPV Absolute Neuts (auto) Neutrophils % Neutrophils % (Manual) 86.0 H Band Neutrophils % 10.0 Lymphocytes % Lymphocytes % (Manual) 0.0 L Monocytes % Monocytes % (Manual) 1 L Eosinophils % Eosinophils % (Manual) 0.0 Basophils % Basophils % (Manual) 0.0 Myelocytes % (Man) 0 Promyelocytes % (Man) 0 Blast Cells % (Manual) 0 Nucleated RBC % 0 Metamyelocytes 3 H D Hypochromia 0 Platelet Estimate Normal Platelet Comment Present Polychromasia 1+ Poikilocytosis 1+ Anisocytosis 1+ Microcytosis 1+ Macrocytosis 0 Target Cells 1+ Ovalocytes 1+ [place] Cells 1+ Sodium Potassium Chloride Carbon Dioxide Anion Gap BUN Creatinine Est GFR (CKD-EPI)AfAm Est GFR (CKD-EPI)NonAf POC Glucometer 325 267 Random Glucose Calcium Magnesium 11/02/19 11/02/19 11/02/19 05:10 05:10 05:36 WBC 12.4 H RBC 4.76 Hgb 13.9 Hct 42.7 MCV 89.7 MCH 29.1 MCHC 32.5 RDW 15.0 Plt Count 223 MPV 10.5 Absolute Neuts (auto) 11.7 H Neutrophils % 94.7 H Neutrophils % (Manual) Band Neutrophils % Lymphocytes % 3.1 L Lymphocytes % (Manual) Monocytes % 2.0 L Monocytes % (Manual) Eosinophils % 0.0 Eosinophils % (Manual) Basophils % 0.2 Basophils % (Manual) Myelocytes % (Man) Promyelocytes % (Man) Blast Cells % (Manual) Nucleated RBC % 0 Metamyelocytes Hypochromia Platelet Estimate Platelet Comment Polychromasia Poikilocytosis Anisocytosis Microcytosis Macrocytosis Target Cells Ovalocytes Carlos Cells Sodium 143 Potassium 4.6 Chloride 111 H Carbon Dioxide 25 Anion Gap 7 L BUN 35.2 H Creatinine 1.1 Est GFR (CKD-EPI)AfAm 77.32 Est GFR (CKD-EPI)NonAf 66.71 POC Glucometer 222 Random Glucose 240 H Calcium 9.2 Magnesium 2.8 H 11/02/19 11:19 WBC RBC Hgb Hct MCV MCH MCHC RDW Plt Count MPV Absolute Neuts (auto) Neutrophils % Neutrophils % (Manual) Band Neutrophils % Lymphocytes % Lymphocytes % (Manual) Monocytes % Monocytes % (Manual) Eosinophils % Eosinophils % (Manual) Basophils % Basophils % (Manual) Myelocytes % (Man) Promyelocytes % (Man) Blast Cells % (Manual) Nucleated RBC % Metamyelocytes Hypochromia Platelet Estimate Platelet Comment Polychromasia Poikilocytosis Anisocytosis Microcytosis Macrocytosis Target Cells Ovalocytes Carlos Cells Sodium Potassium Chloride Carbon Dioxide Anion Gap BUN Creatinine Est GFR (CKD-EPI)AfAm Est GFR (CKD-EPI)NonAf POC Glucometer 300 Random Glucose Calcium Magnesium Active Medications Generic Name Dose Route Start Last Admin Trade Name Freq PRN Reason Stop Dose Admin Albuterol Sulfate 1 amp 10/29/19 18:56 Ventolin 0.083% Nebulizer Soln - NEB Q6H PRN SHORT OF BREATH/WHEEZING Albuterol/Ipratropium 1 amp 10/29/19 20:00 11/02/19 08:25 Duoneb - NEB 1 amp RTID [facility] Administration Atorvastatin Calcium 40 mg 10/29/19 22:00 11/01/19 21:22 Lipitor - PO 40 mg HS [facility] Administration Benzocaine/Menthol 1 each 11/02/19 04:18 11/02/19 05:42 Cepacol Lozenge - MM 1 each Q2H PRN Administration SORE THROAT Clopidogrel Bisulfate 75 mg 10/30/19 10:00 11/02/19 10:23 Plavix - PO 75 mg DAILY [facility] Administration Heparin Sodium (Porcine) 5,000 unit 10/30/19 06:00 11/02/19 05:37 Heparin - SQ 5,000 unit TID [facility] Administration Sodium Chloride 1,000 mls @ 42 mls/hr 10/29/19 19:00 11/02/19 05:31 Normal Saline - IV Not Given ASDIR [facility] Ceftriaxone Sodium 2 gm/ 100 mls @ 200 mls/hr 10/31/19 10:00 11/02/19 10:23 Dextrose IVPB 200 mls/hr DAILY [facility] Administration Protocol Insulin Aspart 1 vial 10/29/19 22:00 11/02/19 11:25 Novolog Vial Sliding Scale - SQ 6 unit ACHS [facility] Administration Protocol Metoprolol Succinate 50 mg 10/29/19 22:00 11/01/19 21:22 Toprol Xl - PO 50 mg HS [facility] Administration Nifedipine 30 mg 10/30/19 10:00 11/02/19 10:23 Procardia Xl - PO 30 mg DAILY [facility] Administration Non-Formulary Medication 90 mcg 10/29/19 22:00 Budesonide [Pulmicort Flexhaler] IH BID [facility] Prednisone 40 mg 11/03/19 10:00 Deltasone - PO DAILY [facility] Quinapril HCl 20 mg 10/29/19 22:00 11/01/19 21:22 Accupril - PO 20 mg HS [facility] Administration ASSESSMENT/PLAN: 75 yo M with a PMhx of HTN, HL, CAD s/p stent > 10 years ago, PVCs, NIDDM, emphysema, asthma, and b/l hip replacement, presenting with worsening cough with increasing green/yellow sputum production for the last 3 days. #Acute Hypoxic respiratory failure likely 2/2 Sepsis from PNA -2/2 Sepsis from PNA -patient with hx of Asthma, Emphysema -step pneumonia antigen positive -CXR: L basilar consolidation -Cont IV abx day 5: ceftriaxone for strep. doxy d/gabrielle. -switch to PO antibiotic tomorrow -d/c medrol, start predisone 40mg -ID on Board #JUDY -resolved #QTC prolongation -qtc 600 on admission -repeat EKG with 457 qtc -avoid qtc prolongation agents -echo results noted #HTN/CAD -cont home meds #DM -ssi #hx of asthma/emphysema -cont home meds #FEN -dc IV fluids -monitor -diabetic diet #dvt ppx -hep sq Visit type - Emergency Visit Emergency Visit: Yes ED Registration Date: 10/29/19 Care time: The patient presented to the Emergency Department on the above date and was hospitalized for further evaluation of their emergent condition. - New Patient This patient is new to me today: Yes Date on this admission: 11/02/19 - Critical Care Critical Care patient: No ATTENDING PHYSICIAN STATEMENT I saw and evaluated the patient. I reviewed the resident's note and discussed the case with the resident. I agree with the resident's findings and plan as documented. SUBJECTIVE: OBJECTIVE: ASSESSMENT AND PLAN:
[2019-11-02 12:17] LABS: ANISOCYTOSIS 1+; MACROCYTOSIS 0; OVALOCYTE 1+; PLATELET ESTIMATE NORMAL
--- NOTE | 2019-11-02 12:43 | PN ---
Progress Note (short form) - Note Progress Note: remains sob without the oxygen or with exertion still some hemoptysis-but less Vital Signs Period Temp Pulse Resp BP Sys/Crenshaw Pulse Ox Last 24 Hr 97.5 F-98.3 F 66-107 18-20 116-148/69-81 95-96 cor-rrr lungs decreased bs left base abd soft,nt ext venous stasis changes CBC, BMP 11/02/19 05:10 11/02/19 05:10 Microbiology 10/29/19 16:00 Blood - Peripheral Venous Blood Culture - Preliminary NO GROWTH OBTAINED AFTER 72 HOURS, INCUBATION TO CONTINUE FOR 2 DAYS. 10/29/19 16:00 Blood - Peripheral Venous Blood Culture - Preliminary NO GROWTH OBTAINED AFTER 72 HOURS, INCUBATION TO CONTINUE FOR 2 DAYS. 10/29/19 20:49 Sputum - Expectorated Gram Stain - Final 10/29/19 20:49 Sputum - Expectorated Sputum Culture - Final NORMAL RESPIRATORY SUSU 10/30/19 04:01 Urine - Urine Clean Catch Urine Culture - Final NO GROWTH OBTAINED 10/30/19 07:30 Urine For Antigen Detection Legionella Antigen - Final 10/30/19 07:30 Urine For Antigen Detection Streptococcus pneumoniae Antigen (M - Final-POSITIVE a/p pneumococcal pneumonia- continue rocephin day #4 requiring oxygen repeat cxray in the dept, r/o effusion if no effusion, can switch to po augmentin in am pen allergy- rash many years ago , no angioedema or anaphylaxis history copd history of DM Problem List - Problems (1) Pneumonia Code(s): J18.9 - PNEUMONIA, UNSPECIFIED ORGANISM Qualifiers: Pneumonia type: due to unspecified organism Laterality: left Lung location: lower lobe of lung Qualified Code(s): J18.9 - Pneumonia, unspecified organism (2) COPD (chronic obstructive pulmonary disease) Code(s): J44.9 - CHRONIC OBSTRUCTIVE PULMONARY DISEASE, UNSPECIFIED (3) Penicillin allergy Code(s): Z88.0 - ALLERGY STATUS TO PENICILLIN
[2019-11-02] MEDS: ATORVASTATIN CA 40 MG TABLET (FP) PO SCH (22:09)
[2019-11-02] MEDS: QUINAPRIL HCL 20 MG TABLET (FP) PO SCH (22:09)
[2019-11-03] MEDS: HEPARIN NA (PORCINE) 5,000 UNITS/ML 1ML VIAL SQ SCH ×3 (06:30→21:03)
[2019-11-03] MEDS: INSULIN SLIDING SCALE (NOVOLOG) 1 VIAL SQ SCH ×4 (06:30→21:05)
[2019-11-03 07:18] LABS: BASO % 0.2 % (0-2.0); EOS % 0.1 % (0-4.5); HEMOGLOBIN 13.9 GM/dL (11.7-16.9); LYMPH % 10.6 % (8-40); MCH 28.9 pg (25.7-33.7); MCHC 32.4 g/dl (32.0-35.9); MEAN CELL VOLUME 89.2 fl (80-96); MEAN PLT VOLUME 10.2 fl (7.5-11.1); NEUT % 81.1 % (42.8-82.8); PLATELET COUNT 219 K/MM3 (134-434); RBC 4.81 M/mm3 (4.00-5.60); RDW 14.9 % (11.9-15.9); WHITE BLOOD COUNT 13.2 K/mm3 (4.0-10.0)
[2019-11-03 07:50] LABS: BILIRUBIN,TOTAL 1.3 mg/dL (0.2-1); BLOOD UREA NITROGEN 25.6 mg/dL (7-18); POTASSIUM 3.9 mmol/L (3.5-5.1); TOT PROT 6.2 g/dl (6.4-8.2)
--- NOTE | 2019-11-03 07:58 | PN ---
Teaching Attending Note Name of Resident: Gloria Pace ATTENDING PHYSICIAN STATEMENT I saw and evaluated the patient. I reviewed the resident's note and discussed the case with the resident. I agree with the resident's findings and plan as documented. SUBJECTIVE: Remains afebrile feels improved OBJECTIVE: Vital Signs Temperature 98.3 F 11/03/19 06:54 Pulse Rate 66 11/03/19 06:54 Respiratory Rate 20 11/03/19 06:54 Blood Pressure 144/71 11/03/19 06:54 O2 Sat by Pulse Oximetry (%) 95 11/02/19 20:24 General: Elderly man, comfortable, not in distress HEENT; mucous membranes moist, no anemia, no jaundice, PERRLA, no nystagmus Neck: No JVD, supple, no bruit, thyroid palpably normal, normal carotid pulsations. Chest: Nontender, left basal rales, CVS: S1-S2 regular no murmur/gallop/rub Abdomen: Nondistended, soft, bowel sounds present. Extremities: No edema., No cough tenderness, pulses present [employer]: AO X3 , no gross motor sensory deficit CBC, BMP 11/03/19 06:48 11/03/19 06:48 Chest x-ray: No acute infiltrate or pleural effusion minimal basal changes ASSESSMENT AND PLAN:74M CAD , remote PCI, COPD, DM presents to ER 1 day fever, chills and cough. Febrile 103F, CXR left basilar consolidation, Comminuted acquired bacterial pneumonia responding to current therapy, yesterday switched to p.o prednisone and ID recommended p.o. Augmentin, patient qualifies for home oxygen. Patient need incentive spirometry. ASSESSMENT AND PLAN: Patient can be discharged home resume all home medications add prednisone 30 mg total 7 days and p.o. antibiotic to complete total 10 days of antibiotic. Please discuss x-ray findings with the ID consult before discharging home. Problem List - Problems (1) Pneumonia Assessment/Plan: Community-acquired responding to current therapy continue ceftriaxone, patient is doing well T WBC is trending normal, switched to p.o. prednisone 40 mg required home oxygen. Chest x-ray shows no acute infiltrate or significant effusion minimal basal changes please discussed x-ray findings with ID before discharge home. Code(s): J18.9 - PNEUMONIA, UNSPECIFIED ORGANISM Qualifiers: Pneumonia type: due to unspecified organism Laterality: left Lung location: lower lobe of lung Qualified Code(s): J18.9 - Pneumonia, unspecified organism (2) COPD (chronic obstructive pulmonary disease) Assessment/Plan: COPD exacerbation due to respiratory tract infection resume MDI and nebs on discharge switched to p.o. prednisone Problems reviewed: Yes Code(s): J44.9 - CHRONIC OBSTRUCTIVE PULMONARY DISEASE, UNSPECIFIED (3) CAD (coronary artery disease) Assessment/Plan: History of CAD status post a stent at present is comfortable continue all home medication Code(s): I25.10 - ATHSCL HEART DISEASE OF [place] CORONARY ARTERY W/O ANG PCTRS (4) Sleep apnea Assessment/Plan: Not using CPAP at home Code(s): G47.30 - SLEEP APNEA, UNSPECIFIED (5) Hypertension Assessment/Plan: Well-controlled continue all home medications Code(s): I10 - ESSENTIAL (PRIMARY) HYPERTENSION (6) Type 2 diabetes mellitus Assessment/Plan: On insulin resume home regimen. Problems reviewed: Yes Code(s): E11.9 - TYPE 2 DIABETES MELLITUS WITHOUT COMPLICATIONS
[2019-11-03] MEDS: ALBUTEROL SO4 2.5/IPRATROPIUM 0.5 INH SOL 3 ML VIAL.NEB. NEB SCH ×2 (08:05→14:58)
[2019-11-03] MEDS ORDERED: DEXTROSE 5%-WATER 100 ML IVPB ONE (08:59)
[2019-11-03] MEDS: CEFTRIAXONE 2 GM in DEXTROSE 5%-WATER 100 ML IVPB SCH (09:07)
[2019-11-03] MEDS: predniSONE 20 MG TABLET (UD) PO SCH (09:08)
[2019-11-03] MEDS: CLOPIDOGREL BISULFATE 75 MG TABLET (FP) PO SCH (09:08)
[2019-11-03] MEDS: NIFEdipine E.R. 30 MG TABLET PO SCH (09:08)
--- NOTE | 2019-11-03 11:58 | PN ---
Progress Note (short form) - Note Progress Note: s: no cp palps dizzy sob Current Medications Albuterol Sulfate (Ventolin 0.083% Nebulizer Soln -) 1 amp NEB Q6H PRN PRN Reason: SHORT OF BREATH/WHEEZING Albuterol/Ipratropium (Duoneb -) 1 amp NEB RTID [facility] Last Admin: 11/03/19 08:05 Dose: 1 amp Atorvastatin Calcium (Lipitor -) 40 mg PO HS [facility] Last Admin: 11/02/19 22:09 Dose: 40 mg Benzocaine/Menthol (Cepacol Lozenge -) 1 each MM Q2H PRN PRN Reason: SORE THROAT Last Admin: 11/02/19 05:42 Dose: 1 each Clopidogrel Bisulfate (Plavix -) 75 mg PO DAILY [facility] Last Admin: 11/03/19 09:08 Dose: 75 mg Heparin Sodium (Porcine) (Heparin -) 5,000 unit SQ TID [facility] Last Admin: 11/03/19 06:30 Dose: 5,000 unit Ceftriaxone Sodium 2 gm/ (Dextrose) 100 mls @ 200 mls/hr IVPB DAILY [facility]; Protocol Last Admin: 11/03/19 09:07 Dose: 200 mls/hr Insulin Aspart (Novolog Vial Sliding Scale -) 1 vial SQ ACHS [facility]; Protocol Last Admin: 11/03/19 06:30 Dose: 2 unit Metoprolol Succinate (Toprol Xl -) 50 mg PO HS [facility] Last Admin: 11/02/19 22:09 Dose: 50 mg Mometasone Furoate (Asmanex 220mcg -) 1 puff IH DAILY [facility] Nifedipine (Procardia Xl -) 30 mg PO DAILY [facility] Last Admin: 11/03/19 09:08 Dose: 30 mg Prednisone (Deltasone -) 40 mg PO DAILY [facility] Last Admin: 11/03/19 09:08 Dose: 40 mg Quinapril HCl (Accupril -) 20 mg PO [facility] Last Admin: 11/02/19 22:09 Dose: 20 mg Vital Signs Period Temp Pulse Resp BP Sys/Crenshaw Pulse Ox Last 24 Hr 97.7 F-98.3 F 64-110 20-20 143-157/71-82 94-95 Constitutional: Yes: Calm Eyes: Yes: Conjunctiva Clear Respiratory: Yes: Other (rales left base) Gastrointestinal: Yes: Soft JVD: No Heart Sounds: Yes: S1, S2 (reg) Edema: trace le edema bl Peripheral Pulses WNL: Yes Neurological: Yes: Alert, Oriented Imaging - Results X-ray: Image Reviewed EKG: Image Reviewed Assessment/Plan IMP: SIRS, early sepsis secondary to CAP CAD w/ remote PCI COPD DM VPCs REC: 1. Cultures/ abx as per primary team. 4. Suppl O2 prn 5. Echo here unremarkable. Continue home cardiac meds for now. 6. DVT prophylaxis. Coverage for Dr. Yip
--- NOTE | 2019-11-03 12:49 | PN ---
Progress Note (short form) - Note Progress Note: Breathing feels better. No hemoptysis. Less SOB. No CP. Qualified for home O2, desaturated to 87%. Intake & Output 10/31/19 11/01/19 11/02/19 11/03/19 23:59 23:59 23:59 23:59 Intake Total 240 2276 1830 1470 Output Total 1100 850 Balance -860 1426 1830 1470 Weight 223 lb 8 oz Last Vital Signs Temp Pulse Resp BP Pulse Ox 98.3 F 66 20 144/71 95 11/03/19 06:54 11/03/19 06:54 11/03/19 06:54 11/03/19 06:54 11/02/19 20:24 Active Medications Albuterol Sulfate (Ventolin 0.083% Nebulizer Soln -) 1 amp NEB Q6H PRN PRN Reason: SHORT OF BREATH/WHEEZING Albuterol/Ipratropium (Duoneb -) 1 amp NEB RTID [facility] Last Admin: 11/03/19 08:05 Dose: 1 amp Atorvastatin Calcium (Lipitor -) 40 mg PO [facility] Last Admin: 11/02/19 22:09 Dose: 40 mg Benzocaine/Menthol (Cepacol Lozenge -) 1 each MM Q2H PRN PRN Reason: SORE THROAT Last Admin: 11/02/19 05:42 Dose: 1 each Clopidogrel Bisulfate (Plavix -) 75 mg PO DAILY [facility] Last Admin: 11/03/19 09:08 Dose: 75 mg Heparin Sodium (Porcine) (Heparin -) 5,000 unit SQ TID [facility] Last Admin: 11/03/19 06:30 Dose: 5,000 unit Ceftriaxone Sodium 2 gm/ (Dextrose) 100 mls @ 200 mls/hr IVPB DAILY [facility]; Protocol Last Admin: 11/03/19 09:07 Dose: 200 mls/hr Insulin Aspart (Novolog Vial Sliding Scale -) 1 vial SQ ACHS [facility]; Protocol Last Admin: 11/03/19 12:20 Dose: 4 unit Metoprolol Succinate (Toprol Xl -) 50 mg PO HS [facility] Last Admin: 11/02/19 22:09 Dose: 50 mg Mometasone Furoate (Asmanex 220mcg -) 1 puff IH DAILY [facility] Nifedipine (Procardia Xl -) 30 mg PO DAILY [facility] Last Admin: 11/03/19 09:08 Dose: 30 mg Prednisone (Deltasone -) 40 mg PO DAILY [facility] Last Admin: 11/03/19 09:08 Dose: 40 mg Quinapril HCl (Accupril -) 20 mg PO HS [facility] Last Admin: 11/02/19 22:09 Dose: 20 mg Gen: NAD at rest Heart: RRR Lung: Few scattered rhonchi, no wheezes Abd: soft, nontender Ext: no edema Laboratory Results - last 24 hr 11/02/19 11/02/19 11/03/19 17:17 22:17 06:25 WBC RBC Hgb Hct MCV MCH MCHC RDW Plt Count MPV Absolute Neuts (auto) Neutrophils % Neutrophils % (Manual) Band Neutrophils % Lymphocytes % Lymphocytes % (Manual) Monocytes % Monocytes % (Manual) Eosinophils % Eosinophils % (Manual) Basophils % Basophils % (Manual) Myelocytes % (Man) Promyelocytes % (Man) Blast Cells % (Manual) Nucleated RBC % Metamyelocytes Sodium Potassium Chloride Carbon Dioxide Anion Gap BUN Creatinine Est GFR (CKD-EPI)AfAm Est GFR (CKD-EPI)NonAf POC Glucometer 161 198 169 Random Glucose Calcium Total Bilirubin AST ALT Alkaline Phosphatase Total Protein Albumin 11/03/19 11/03/19 11/03/19 06:48 06:48 12:06 WBC 13.2 H RBC 4.81 Hgb 13.9 Hct 43.0 MCV 89.2 MCH 28.9 MCHC 32.4 RDW 14.9 Plt Count 219 MPV 10.2 Absolute Neuts (auto) 10.7 H Neutrophils % 81.1 Neutrophils % (Manual) 83.6 H Band Neutrophils % 0.0 Lymphocytes % 10.6 D Lymphocytes % (Manual) 6.7 L D Monocytes % 8.0 D Monocytes % (Manual) 6 D Eosinophils % 0.1 D Eosinophils % (Manual) 1.0 D Basophils % 0.2 Basophils % (Manual) 0.0 Myelocytes % (Man) 0 Promyelocytes % (Man) 0 Blast Cells % (Manual) 0 Nucleated RBC % 0 Metamyelocytes 0 Sodium 140 Potassium 3.9 Chloride 107 Carbon Dioxide 26 Anion Gap 7 L BUN 25.6 H Creatinine 1.0 Est GFR (CKD-EPI)AfAm 86.76 Est GFR (CKD-EPI)NonAf 74.86 POC Glucometer 239 Random Glucose 172 H Calcium 9.0 Total Bilirubin 1.3 H AST 19 ALT 18 Alkaline Phosphatase 77 Total Protein 6.2 L Albumin 3.0 L A/P Pneumonia Hemoptysis Sepsis Lactic Acidosis Acute Kidney Injury Acute COPD Exacerbation CAD DM - monitor urine output, creatinine - Prednisone - inhaled bronchodilators - Home O2 to be arranged - Patient is asking for a Home nebulizer (ordered) and can be given Albuterol Q4 PRN Dr Jiang Problem List - Problems (1) COPD (chronic obstructive pulmonary disease) Code(s): J44.9 - CHRONIC OBSTRUCTIVE PULMONARY DISEASE, UNSPECIFIED (2) Sleep apnea Code(s): G47.30 - SLEEP APNEA, UNSPECIFIED (3) Obesity Code(s): E66.9 - OBESITY, UNSPECIFIED (4) Pneumonia Code(s): J18.9 - PNEUMONIA, UNSPECIFIED ORGANISM Qualifiers: Pneumonia type: due to unspecified organism Laterality: left Lung location: lower lobe of lung Qualified Code(s): J18.9 - Pneumonia, unspecified organism
--- NOTE | 2019-11-03 13:57 | PN ---
Physical Exam: SUBJECTIVE: Patient seen and examined. No events overnight. Offers no new complaints. Says his breathing is better today. OBJECTIVE: Vital Signs Period Temp Pulse Resp BP Sys/Crenshaw Pulse Ox Last 24 Hr 97.7 F-98.3 F 64-73 20-20 143-157/71-82 95 GENERAL: a/o x 3, in NAD, comfortable on bipap HEAD: Normal with no signs of trauma. EYES: Pupils equal, round and reactive to light, extraocular movements intact EARS, NOSE, THROAT:oropharynx clear without exudates. NECK: supple without lymphadenopathy, JVD, or masses. LUNGS: L sided rales. +rhonchi HEART: RRR ABDOMEN: Soft, nontender, not distended, normoactive bowel sounds LOWER EXTREMITIES: 2+ pulses. + edema b/l NEUROLOGICAL: Cranial nerves II-XII intact Laboratory Results - last 24 hr 11/02/19 11/02/19 11/03/19 17:17 22:17 06:25 WBC RBC Hgb Hct MCV MCH MCHC RDW Plt Count MPV Absolute Neuts (auto) Neutrophils % Neutrophils % (Manual) Band Neutrophils % Lymphocytes % Lymphocytes % (Manual) Monocytes % Monocytes % (Manual) Eosinophils % Eosinophils % (Manual) Basophils % Basophils % (Manual) Myelocytes % (Man) Promyelocytes % (Man) Blast Cells % (Manual) Nucleated RBC % Metamyelocytes Sodium Potassium Chloride Carbon Dioxide Anion Gap BUN Creatinine Est GFR (CKD-EPI)AfAm Est GFR (CKD-EPI)NonAf POC Glucometer 161 198 169 Random Glucose Calcium Total Bilirubin AST ALT Alkaline Phosphatase Total Protein Albumin 11/03/19 11/03/19 11/03/19 06:48 06:48 12:06 WBC 13.2 H RBC 4.81 Hgb 13.9 Hct 43.0 MCV 89.2 MCH 28.9 MCHC 32.4 RDW 14.9 Plt Count 219 MPV 10.2 Absolute Neuts (auto) 10.7 H Neutrophils % 81.1 Neutrophils % (Manual) 83.6 H Band Neutrophils % 0.0 Lymphocytes % 10.6 D Lymphocytes % (Manual) 6.7 L D Monocytes % 8.0 D Monocytes % (Manual) 6 D Eosinophils % 0.1 D Eosinophils % (Manual) 1.0 D Basophils % 0.2 Basophils % (Manual) 0.0 Myelocytes % (Man) 0 Promyelocytes % (Man) 0 Blast Cells % (Manual) 0 Nucleated RBC % 0 Metamyelocytes 0 Sodium 140 Potassium 3.9 Chloride 107 Carbon Dioxide 26 Anion Gap 7 L BUN 25.6 H Creatinine 1.0 Est GFR (CKD-EPI)AfAm 86.76 Est GFR (CKD-EPI)NonAf 74.86 POC Glucometer 239 Random Glucose 172 H Calcium 9.0 Total Bilirubin 1.3 H AST 19 ALT 18 Alkaline Phosphatase 77 Total Protein 6.2 L Albumin 3.0 L Active Medications Generic Name Dose Route Start Last Admin Trade Name Freq PRN Reason Stop Dose Admin Albuterol Sulfate 1 amp 10/29/19 18:56 Ventolin 0.083% Nebulizer Soln - NEB Q6H PRN SHORT OF BREATH/WHEEZING Albuterol/Ipratropium 1 amp 10/29/19 20:00 11/03/19 08:05 Duoneb - NEB 1 amp RTID MADELINE Administration Atorvastatin Calcium 40 mg 10/29/19 22:00 11/02/19 22:09 Lipitor - PO 40 mg HS MADELINE Administration Benzocaine/Menthol 1 each 11/02/19 04:18 11/02/19 05:42 Cepacol Lozenge - MM 1 each Q2H PRN Administration SORE THROAT Clopidogrel Bisulfate 75 mg 10/30/19 10:00 11/03/19 09:08 Plavix - PO 75 mg DAILY MADELINE Administration Heparin Sodium (Porcine) 5,000 unit 10/30/19 06:00 11/03/19 06:30 Heparin - SQ 5,000 unit TID MADELINE Administration Ceftriaxone Sodium 2 gm/ 100 mls @ 200 mls/hr 10/31/19 10:00 11/03/19 09:07 Dextrose IVPB 200 mls/hr DAILY MADELINE Administration Protocol Insulin Aspart 1 vial 10/29/19 22:00 11/03/19 12:20 Novolog Vial Sliding Scale - SQ 4 unit ACHS MADELINE Administration Protocol Metoprolol Succinate 50 mg 10/29/19 22:00 11/02/19 22:09 Toprol Xl - PO 50 mg HS MADELINE Administration Mometasone Furoate 1 puff 11/03/19 12:00 Asmanex 220mcg - IH DAILY MADELINE Nifedipine 30 mg 10/30/19 10:00 11/03/19 09:08 Procardia Xl - PO 30 mg DAILY MADELINE Administration Prednisone 40 mg 11/03/19 10:00 11/03/19 09:08 Deltasone - PO 40 mg DAILY MADELINE Administration Quinapril HCl 20 mg 10/29/19 22:00 11/02/19 22:09 Accupril - PO 20 mg HS MADELINE Administration ASSESSMENT/PLAN: 75 yo M with a PMhx of HTN, HL, CAD s/p stent > 10 years ago, PVCs, NIDDM, emphysema, asthma, and b/l hip replacement, presenting with worsening cough with increasing green/yellow sputum production for the last 3 days. #Acute Hypoxic respiratory failure likely 2/2 Sepsis from PNA -2/2 Sepsis from PNA -patient with hx of Asthma, Emphysema -step pneumonia antigen positive -CXR: L basilar consolidation -Cont IV abx day 5: ceftriaxone for strep. doxy d/gabrielle. -cont. predisone 40mg -ID on Board -cxr with bibasilar atelectasis and fluid. base changes have increased since prior studies. #JUDY -resolved #QTC prolongation -avoid qtc prolongation agents -echo results noted #HTN/CAD -cont home meds #DM -ssi #hx of asthma/emphysema -cont home meds #FEN -no iv fluids -monitor -diabetic diet #dvt ppx -hep sq Visit type - Emergency Visit Emergency Visit: Yes ED Registration Date: 10/29/19 Care time: The patient presented to the Emergency Department on the above date and was hospitalized for further evaluation of their emergent condition. - New Patient This patient is new to me today: Yes Date on this admission: 11/03/19 - Critical Care Critical Care patient: No ATTENDING PHYSICIAN STATEMENT I saw and evaluated the patient. I reviewed the resident's note and discussed the case with the resident. I agree with the resident's findings and plan as documented. SUBJECTIVE: OBJECTIVE: ASSESSMENT AND PLAN:
--- NOTE | 2019-11-03 15:45 | PN ---
Progress Note (short form) - Note Progress Note: improving requires oxygen less cough Vital Signs Period Temp Pulse Resp BP Sys/Crenshaw Pulse Ox Last 24 Hr 97.7 F-98.3 F 64-86 20-22 132-150/60-75 95 cor-rrr lungs decreased bs at bases abd soft,nt ext no edema cxray reviewed with radiology- small bilateral pleural effusions CBC, BMP 11/03/19 06:48 11/03/19 06:48 Microbiology 10/29/19 16:00 Blood - Peripheral Venous Blood Culture - Preliminary NO GROWTH OBTAINED AFTER 96 HOURS, INCUBATION TO CONTINUE FOR 1 DAYS. 10/29/19 16:00 Blood - Peripheral Venous Blood Culture - Preliminary NO GROWTH OBTAINED AFTER 96 HOURS, INCUBATION TO CONTINUE FOR 1 DAYS. 10/29/19 20:49 Sputum - Expectorated Gram Stain - Final 10/29/19 20:49 Sputum - Expectorated Sputum Culture - Final NORMAL RESPIRATORY SUSU 10/30/19 04:01 Urine - Urine Clean Catch Urine Culture - Final NO GROWTH OBTAINED 10/30/19 07:30 Urine For Antigen Detection Legionella Antigen - Final 10/30/19 07:30 Urine For Antigen Detection Streptococcus pneumoniae Antigen (M - Final a/p pneumococcal pneumonia- day #5 rocephin no objection to switch to po augmentin and treat total 10 days needs home oxygen arranged pen allergy- rash many years ago , no angioedema or anaphylaxis history copd history of DM Problem List - Problems (1) Pneumonia Code(s): J18.9 - PNEUMONIA, UNSPECIFIED ORGANISM Qualifiers: Pneumonia type: due to unspecified organism Laterality: left Lung location: lower lobe of lung Qualified Code(s): J18.9 - Pneumonia, unspecified organism (2) Penicillin allergy Code(s): Z88.0 - ALLERGY STATUS TO PENICILLIN (3) COPD exacerbation Code(s): J44.1 - CHRONIC OBSTRUCTIVE PULMONARY DISEASE W (ACUTE) EXACERBATION
[2019-11-03] MEDS ORDERED: PT OWN MED DRAWER 7, Y5N ONE ×2 (17:19→20:16)
[2019-11-03] MEDS: MOMETASONE FUROATE 220 MCG/IH INHALER IH SCH (18:13)
[2019-11-03 20:01] VITALS: TEMP 97.9
[2019-11-03] MEDS: QUINAPRIL HCL 20 MG TABLET (FP) PO SCH (21:03)
[2019-11-03] MEDS: ATORVASTATIN CA 40 MG TABLET (FP) PO SCH (21:03)
[2019-11-04] MEDS: HEPARIN NA (PORCINE) 5,000 UNITS/ML 1ML VIAL SQ SCH (06:11)
[2019-11-04] MEDS: INSULIN SLIDING SCALE (NOVOLOG) 1 VIAL SQ SCH ×2 (06:11→11:40)
[2019-11-04 06:24] VITALS: BP 149/85; PULSE 86
[2019-11-04 08:09] LABS: BASO % 0.1 % (0-2.0); EOS % 0.8 % (0-4.5); HEMATOCRIT 43.9 % (35.4-49); HEMOGLOBIN 14.2 GM/dL (11.7-16.9); LYMPH % 14.5 % (8-40); MCH 29.1 pg (25.7-33.7); MCHC 32.3 g/dl (32.0-35.9); MEAN CELL VOLUME 89.9 fl (80-96); MEAN PLT VOLUME 10.2 fl (7.5-11.1); MONO % 7.4 % (3.8-10.2); NEUT % 77.2 % (42.8-82.8); PLATELET COUNT 226 K/MM3 (134-434); RBC 4.88 M/mm3 (4.00-5.60); WHITE BLOOD COUNT 12.1 K/mm3 (4.0-10.0)
[2019-11-04 08:34] LABS: ALBUMIN 2.9 g/dl (3.4-5.0); BILIRUBIN,TOTAL 1.1 mg/dL (0.2-1); POTASSIUM 4.4 mmol/L (3.5-5.1); TOT PROT 6.2 g/dl (6.4-8.2)
[2019-11-04] MEDS ORDERED: PT OWN MED DRAWER 7, Y5N ONE (10:07)
[2019-11-04] MEDS ORDERED: DEXTROSE 5%-WATER 100 ML IVPB ONE (10:07)
--- NOTE | 2019-11-04 10:41 | DS ---
Physical Exam: SUBJECTIVE: Patient seen and examined. no events overnight. says he is breathing better today. OBJECTIVE: Vital Signs Period Temp Pulse Resp BP Sys/Crenshaw Pulse Ox Last 24 Hr 97.9 F-99.5 F 86-108 20-20 145-150/85-93 93-96 PHYSICAL EXAM GENERAL: a/o x 3, in NAD, comfortable on bipap HEAD: Normal with no signs of trauma. EYES: Pupils equal, round and reactive to light, extraocular movements intact EARS, NOSE, THROAT:oropharynx clear without exudates. NECK: supple without lymphadenopathy, JVD, or masses. LUNGS: decreased breath sounds HEART: RRR ABDOMEN: Soft, nontender, not distended, normoactive bowel sounds LOWER EXTREMITIES: 2+ pulses. NEUROLOGICAL: Cranial nerves II-XII intact LABS Laboratory Results - last 24 hr 11/03/19 11/03/19 11/03/19 06:48 12:06 17:11 WBC RBC Hgb Hct MCV MCH MCHC RDW Plt Count MPV Absolute Neuts (auto) Neutrophils % Neutrophils % (Manual) 83.6 H Band Neutrophils % 0.0 Lymphocytes % Lymphocytes % (Manual) 6.7 L D Monocytes % Monocytes % (Manual) 6 D Eosinophils % Eosinophils % (Manual) 1.0 D Basophils % Basophils % (Manual) 0.0 Myelocytes % (Man) 0 Promyelocytes % (Man) 0 Blast Cells % (Manual) 0 Nucleated RBC % Metamyelocytes 0 Sodium Potassium Chloride Carbon Dioxide Anion Gap BUN Creatinine Est GFR (CKD-EPI)AfAm Est GFR (CKD-EPI)NonAf POC Glucometer 239 279 Random Glucose Calcium Total Bilirubin AST ALT Alkaline Phosphatase Total Protein Albumin 11/03/19 11/04/19 11/04/19 21:02 05:08 06:33 WBC 12.1 H RBC 4.88 Hgb 14.2 Hct 43.9 MCV 89.9 MCH 29.1 MCHC 32.3 RDW 15.0 Plt Count 226 MPV 10.2 Absolute Neuts (auto) 9.3 H Neutrophils % 77.2 Neutrophils % (Manual) Band Neutrophils % Lymphocytes % 14.5 D Lymphocytes % (Manual) Monocytes % 7.4 Monocytes % (Manual) Eosinophils % 0.8 D Eosinophils % (Manual) Basophils % 0.1 Basophils % (Manual) Myelocytes % (Man) Promyelocytes % (Man) Blast Cells % (Manual) Nucleated RBC % 0 Metamyelocytes Sodium Potassium Chloride Carbon Dioxide Anion Gap BUN Creatinine Est GFR (CKD-EPI)AfAm Est GFR (CKD-EPI)NonAf POC Glucometer 270 165 Random Glucose Calcium Total Bilirubin AST ALT Alkaline Phosphatase Total Protein Albumin 11/04/19 06:33 WBC RBC Hgb Hct MCV MCH MCHC RDW Plt Count MPV Absolute Neuts (auto) Neutrophils % Neutrophils % (Manual) Band Neutrophils % Lymphocytes % Lymphocytes % (Manual) Monocytes % Monocytes % (Manual) Eosinophils % Eosinophils % (Manual) Basophils % Basophils % (Manual) Myelocytes % (Man) Promyelocytes % (Man) Blast Cells % (Manual) Nucleated RBC % Metamyelocytes Sodium 142 Potassium 4.4 Chloride 105 Carbon Dioxide 30 Anion Gap 6 L BUN 23.0 H Creatinine 1.0 Est GFR (CKD-EPI)AfAm 86.76 Est GFR (CKD-EPI)NonAf 74.86 POC Glucometer Random Glucose 154 H Calcium 9.0 Total Bilirubin 1.1 H AST 19 ALT 20 Alkaline Phosphatase 80 Total Protein 6.2 L Albumin 2.9 L HOSPITAL COURSE: Date of Admission:10/29/19 75 yo M with a PMhx of HTN, HL, CAD s/p stent > 10 years ago, PVCs, NIDDM, emphysema, asthma, and b/l hip replacement, presenting with worsening cough with increasing green/yellow sputum production for the last 3 days. #Acute Hypoxic respiratory failure likely 2/2 Sepsis from PNA -2/2 Sepsis from PNA -patient with hx of Asthma, Emphysema -step pneumonia antigen positive -CXR: L basilar consolidation -Cont IV abx day 6: ceftriaxone for strep. will discharge home with 4 more days of PO Augmentin. -will discharge with 30mg of predisone daily for more days. -ID on Board -cxr with bibasilar atelectasis and fluid. base changes have increased since prior studies. #JUDY -resolved #QTC prolongation -avoid qtc prolongation agents -echo results noted #HTN/CAD -cont home meds #DM -resume home meds on discharge #hx of asthma/emphysema -cont home meds Date of Discharge: 11/04/19 Minutes to complete discharge: 35 Discharge Summary Problems reviewed: Yes Reason For Visit: PNEUMONIA Current Active Problems CAD (coronary artery disease) (Acute) CAD (coronary artery disease) (Acute) COPD (chronic obstructive pulmonary disease) (Acute) COPD exacerbation (Acute) Hypertension (Acute) Obesity (Acute) Penicillin allergy (Acute) Pneumonia (Acute) Sleep apnea (Acute) Type 2 diabetes mellitus (Acute) Condition: Stable - Instructions Diet, Activity, Other Instructions: You were admitted because of Pneumonia. You were treated with IV antibiotics. You will need to continue oral antibiotics for 4 more days (Augmentin 875mg twice a day). Start 11/05, complete on 11/08. We will also send you home with oral steroids. Take 30mg of Prednisone for 4 more days. You will be discharged with home oxygen. Follow up with your pulmonary doctor in 1 week. Follow up with your primary care doctor in 1 week. Referrals: Rodrigo Harvey MD [Primary Care Provider] - 1 Week Connor Cabral MD [Staff Physician] - 1 Week Disposition: HOME - Home Medications Comprehensive Discharge Medication List: Ambulatory Orders Albuterol Sulfate [Proair Hfa] 8.5 gm IH TID PRN 07/02/19 Allopurinol [Zyloprim -] 300 mg PO HS 07/02/19 Atorvastatin Ca [Lipitor] 40 mg PO HS 07/02/19 Budesonide [Pulmicort Flexhaler] 90 mcg IH BID 07/02/19 Clopidogrel Bisulfate [Clopidogrel] 75 mg PO DAILY 07/02/19 Dapagliflozin Propanediol [Farxiga] 5 mg PO DAILY 07/02/19 Dulaglutide [Trulicity] 1.5 mg SQ WEEKLY 07/02/19 Fluticasone/Salmeterol [Advair 250-50 Diskus] 1 each IH DAILY 07/02/19 Metoprolol Succinate [Toprol XL -] 50 mg PO HS 07/02/19 Montelukast Na [Singulair -] 10 mg PO HS 07/02/19 Nifedipine [Procardia Xl] 30 mg PO DAILY 07/02/19 Quinapril HCl 20 mg PO HS 07/02/19 Theophylline Anhydrous 150 mg PO Q2D 07/02/19 Torsemide [Demadex -] 20 mg PO Q2D 07/02/19 Amoxicillin/Potassium Clav [Augmentin 875-125 Tablet] 1 each PO BID #8 tablet Prednisone 30 mg PO DAILY #12 tablet 11/04/19 This patient is new to me today: No Emergency Visit: Yes ED Registration Date: 10/29/19 Care time: The patient presented to the Emergency Department on the above date and was hospitalized for further evaluation of their emergent condition. Critical Care patient: No - Discharge Referral Referred to [facility] No ATTENDING PHYSICIAN STATEMENT I saw and evaluated the patient. I reviewed the resident's note and discussed the case with the resident. I agree with the resident's findings and plan as documented. SUBJECTIVE: OBJECTIVE: ASSESSMENT AND PLAN:
[2019-11-04] MEDS: MOMETASONE FUROATE 220 MCG/IH INHALER IH SCH (11:04)
[2019-11-04] MEDS: CLOPIDOGREL BISULFATE 75 MG TABLET (FP) PO SCH (11:05)
[2019-11-04] MEDS: CEFTRIAXONE 2 GM in DEXTROSE 5%-WATER 100 ML IVPB SCH (11:05)
[2019-11-04] MEDS: predniSONE 20 MG TABLET (UD) PO SCH (11:05)
[2019-11-04] MEDS: NIFEdipine E.R. 30 MG TABLET PO SCH (11:05)
[2019-11-04 12:23] LABS: PLATELET ESTIMATE ADEQUATE
--- NOTE | 2019-11-04 12:32 | PN ---
Progress Note (short form) - Note Progress Note: s: no cp palps dizzy sob Current Medications Atorvastatin Calcium (Lipitor -) 40 mg PO HS [facility] Last Admin: 11/03/19 21:03 Dose: 40 mg Benzocaine/Menthol (Cepacol Lozenge -) 1 each MM Q2H PRN PRN Reason: SORE THROAT Last Admin: 11/02/19 05:42 Dose: 1 each Clopidogrel Bisulfate (Plavix -) 75 mg PO DAILY [facility] Last Admin: 11/04/19 11:05 Dose: 75 mg Heparin Sodium (Porcine) (Heparin -) 5,000 unit SQ TID [facility] Last Admin: 11/04/19 06:11 Dose: 5,000 unit Ceftriaxone Sodium 2 gm/ (Dextrose) 100 mls @ 200 mls/hr IVPB DAILY [facility]; Protocol Last Admin: 11/04/19 11:05 Dose: 200 mls/hr Insulin Aspart (Novolog Vial Sliding Scale -) 1 vial SQ ACHS [facility]; Protocol Last Admin: 11/04/19 11:40 Dose: 4 unit Metoprolol Succinate (Toprol Xl -) 50 mg PO [facility] Last Admin: 11/03/19 21:03 Dose: 50 mg Mometasone Furoate (Asmanex 220mcg -) 1 puff IH DAILY [facility] Last Admin: 11/04/19 11:04 Dose: 1 puff Nifedipine (Procardia Xl -) 30 mg PO DAILY [facility] Last Admin: 11/04/19 11:05 Dose: 30 mg Prednisone (Deltasone -) 40 mg PO DAILY [facility] Last Admin: 11/04/19 11:05 Dose: 40 mg Quinapril HCl (Accupril -) 20 mg PO [facility] Last Admin: 11/03/19 21:03 Dose: 20 mg Vital Signs Period Temp Pulse Resp BP Sys/Crenshaw Pulse Ox Last 24 Hr 97.9 F-99.5 F 86-108 20-20 145-150/85-93 93-96 Constitutional: Yes: Calm Eyes: Yes: Conjunctiva Clear Respiratory: Yes: Other (rales left base) Gastrointestinal: Yes: Soft JVD: No Heart Sounds: Yes: S1, S2 (reg) Edema: trace le edema bl Peripheral Pulses WNL: Yes Neurological: Yes: Alert, Oriented Imaging - Results X-ray: Image Reviewed EKG: Image Reviewed Assessment/Plan IMP: SIRS, early sepsis secondary to CAP CAD w/ remote PCI COPD DM VPCs REC: 1. Cultures/ abx as per primary team. 2. Suppl O2 prn 3. Echo here unremarkable. Continue home cardiac meds for now. 4. DVT prophylaxis. Coverage for Dr. Yip
--- NOTE | 2019-11-04 12:41 | PN ---
Teaching Attending Note Name of Resident: Gloria Pace ATTENDING PHYSICIAN STATEMENT I saw and evaluated the patient. I reviewed the resident's note and discussed the case with the resident. I agree with the resident's findings and plan as documented. SUBJECTIVE: Feels improved remained afebrile OBJECTIVE: Vital Signs Temperature 97.9 F 11/04/19 06:00 Pulse Rate 86 11/04/19 06:00 Respiratory Rate 20 11/04/19 06:00 Blood Pressure 149/85 11/04/19 06:00 O2 Sat by Pulse Oximetry (%) 93 L 11/04/19 09:00 General: Elderly man, comfortable, not in distress HEENT; mucous membranes moist, no anemia, no jaundice, PERRLA, no nystagmus Neck: No JVD, supple, no bruit, thyroid palpably normal, normal carotid pulsations. Chest: Nontender, left basal rales, CVS: S1-S2 regular no murmur/gallop/rub Abdomen: Nondistended, soft, bowel sounds present. 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 Febrile 103F, CXR left basilar consolidation, Comminuted acquired bacterial pneumonia responding to current therapy, yesterday switched to p.o prednisone and patient qualifies for home oxygen. Patient need incentive spirometry. ASSESSMENT AND PLAN: Patient will be discharged home on p.o. Ceftin for 5 more days follow-up with the PMD and his data architect. Problem List - Problems (1) Pneumonia Assessment/Plan: Community-acquired responding to current therapy continue ceftriaxone, patient is doing well T WBC is trending normal, switched to p.o. prednisone 40 mg required home oxygen. Chest x-ray shows no acute infiltrate or significant effusion minimal basal changes, discussed x-ray findings with ID, cleared to be discharged home . Code(s): J18.9 - PNEUMONIA, UNSPECIFIED ORGANISM Qualifiers: Pneumonia type: due to unspecified organism Laterality: left Lung location: lower lobe of lung Qualified Code(s): J18.9 - Pneumonia, unspecified organism (2) COPD (chronic obstructive pulmonary disease) Assessment/Plan: COPD exacerbation due to respiratory tract infection resume MDI and nebs on discharge switched to p.o. prednisone Code(s): J44.9 - CHRONIC OBSTRUCTIVE PULMONARY DISEASE, UNSPECIFIED (3) CAD (coronary artery disease) Assessment/Plan: History of CAD status post a stent at present is comfortable continue all home medication Code(s): I25.10 - ATHSCL HEART DISEASE OF [place] CORONARY ARTERY W/O ANG PCTRS (4) Sleep apnea Assessment/Plan: Not using CPAP at home Code(s): G47.30 - SLEEP APNEA, UNSPECIFIED (5) Hypertension Assessment/Plan: Well-controlled continue all home medications Code(s): I10 - ESSENTIAL (PRIMARY) HYPERTENSION (6) Type 2 diabetes mellitus Assessment/Plan: On insulin resume home regimen. Code(s): E11.9 - TYPE 2 DIABETES MELLITUS WITHOUT COMPLICATIONS
[2019-11-04] MEDS ORDERED: METOPROLOL TARTRATE 25 MG TABLET (FP) PO ONE (14:01)
== END 2019-11-04 14:41 | disposition home or self-care (01) | DRG 871 ==
LOC: JER 15:21 → JERBED 17:10 → J4W 10-30 19:16
PROVIDERS: ATTEND Internal Medicine
DX: A40.9 Streptococcal sepsis, unspecified (principal); J18.9 Pneumonia, unspecified organism; J96.01 Acute respiratory failure with hypoxia; E87.2 Acidosis; J44.1 Chronic obstructive pulmonary disease with (acute) exacerbation; N17.9 Acute kidney failure, unspecified; I25.10 Atherosclerotic heart disease of native coronary artery without angina pectoris; Z95.5 Presence of coronary angioplasty implant and graft; G47.30 Sleep apnea, unspecified; E11.9 Type 2 diabetes mellitus without complications; E66.9 Obesity, unspecified; Z68.32 Body mass index [BMI] 32.0-32.9, adult; Z88.0 Allergy status to penicillin; D72.829 Elevated white blood cell count, unspecified; E78.5 Hyperlipidemia, unspecified
CPT/HCPCS: 36415; 71045-TC-FY; 71046-TC-FY; 80048; 80053; 81003; 82803; 82962; 83605; 83735; 83880; 84100; 84443; 84484; 85025; 85610; 85730; 87040; 87070; 87086; 87205; 87254; 87633; 87804; 87807; 87899; 93005; 93010; 93306-TC; 94010; 94640; 94660; 94761; 99285-25; J0131; J1644; J7030

== ENCOUNTER 2021-01-14 15:42 | Inpatient (IN) | payer OTHER, BC ==
[2021-01-14] MEDS ORDERED: ACETAMINOPHEN 1000 MG/100 ML VIAL (NON FORMULARY) IVPB ONE (16:42)
[2021-01-14 16:47] LABS: EPITHELIAL CELLS RARE /hpf; URINE HYALINE CAST 0-1 /lpf
[2021-01-14] MEDS ORDERED: ACETAMINOPHEN INJECTION 100 ML IVPB ONE (17:06)
[2021-01-14] MEDS: SODIUM CHLORIDE 1,000 ML IV SCH (17:15)
[2021-01-14 17:24] LABS: ALBUMIN 3.1 g/dl (3.4-5.0); BILIRUBIN,TOTAL 0.9 mg/dl (0.2-1); CALCIUM 8.5 mg/dl (8.5-10); CREATININE 0.9 mg/dl (0.55-1.3); MEAN CELL VOLUME 94.2 fl (80-96); POTASSIUM 3.4 mmol/L (3.5-5.1); TOT PROT 6.4 g/dl (6.4-8.2)
[2021-01-14 17:27] LABS: BASO % 0.1 % (0-2.0); EOS % 0.2 % (0-4.5); HEMATOCRIT 36.1 % (35.4-49); HEMOGLOBIN 11.9 GM/dl (11.7-16.9); LYMPH % 6.8 % (8-40); MCH 31.1 pg (25.7-33.7); MEAN PLT VOLUME 9.3 fl (7.5-11.1); MONO % 7.2 % (3.8-10.2); NEUT % 85.7 % (42.8-82.8); PLATELET COUNT 282 K/MM3 (134-434); RBC 3.83 M/mm3 (4.00-5.60); RDW 21.3 % (11.9-15.9)
[2021-01-14 17:28] LABS: ADD RBC MORPHOLOGY YES
[2021-01-14 17:39] LABS: INR 1.19 (0.82-1.09); PROTHROMBIN TIME (PATIENT) 13.2 SEC (10.2-13.0)
[2021-01-14 17:53] LABS: ANISOCYTOSIS 2+; OVALOCYTE 1+; PLATELET ESTIMATE ADEQUATE; TEAR DROP CELLS 1+
[2021-01-14] MEDS ORDERED: CEFEPIME HCL/D5W 2 GM/50 ML BAG IVPB ONE (17:53)
[2021-01-14 19:38] LABS: LACTIC ACID 2.3 mmol/L (0.4-2.0)
[2021-01-14 22:02] VITALS: BMI 25.5
[2021-01-15] MEDS ORDERED: ALBUTEROL SO4 HFA INHALER IH PRN (05:48)
[2021-01-15] MEDS ORDERED: ONDANSETRON 8 MG TABLET (FP) PO PRN (05:48)
[2021-01-15] MEDS ORDERED: POTASSIUM CHLORIDE TABS 20 MEQ TABLET.ER (FP) PO ONE (05:48)
[2021-01-15] MEDS ORDERED: ACETAMINOPHEN 500 MG TABLET (FP) PO PRN (07:07)
[2021-01-15] MEDS ORDERED: oxyCODONE HCL 5 MG TABLET PO PRN (07:07)
[2021-01-15 07:42] LABS: BASO % 0.4 % (0-2.0); EOS % 0.2 % (0-4.5); HEMATOCRIT 33.7 % (35.4-49); HEMOGLOBIN 10.8 GM/dL (11.7-16.9); LYMPH % 14.1 % (8-40); MCH 30.6 pg (25.7-33.7); MCHC 32.1 g/dl (32.0-35.9); MEAN CELL VOLUME 95.4 fl (80-96); MEAN PLT VOLUME 9.5 fl (7.5-11.1); MONO % 12.9 % (3.8-10.2); NEUT % 72.4 % (42.8-82.8); PLATELET COUNT 233 K/MM3 (134-434); RBC 3.54 M/mm3 (4.00-5.60); RDW 21.9 % (11.9-15.9)
[2021-01-15 07:48] LABS: POTASSIUM 4.2 mmol/L (3.5-5.1)
[2021-01-15 07:50] LABS: CALCIUM 8.6 mg/dL (8.5-10.1)
[2021-01-15 07:51] LABS: ALBUMIN 2.5 g/dl (3.4-5.0); BLOOD UREA NITROGEN 19.8 mg/dL (7-18); MAGNESIUM 2.3 mg/dL (1.8-2.4)
[2021-01-15 07:54] LABS: CREATININE 0.9 mg/dL (0.55-1.3); PHOSPHOROUS 2.3 mg/dL (2.5-4.9)
[2021-01-15 07:55] LABS: BILIRUBIN,TOTAL 0.8 mg/dL (0.2-1); TOT PROT 5.8 g/dl (6.4-8.2)
[2021-01-15 08:35] LABS: URIC ACID 3.5 mg/dL (2.6-7.2)
[2021-01-15] MEDS: ENOXAPARIN NA (PORCINE) 40 MG/0.4 ML DISP.SYRIN SQ SCH (09:16)
[2021-01-15] MEDS: NAPH,MB-DB/K PH,MBDB POWDER PACKET PO SCH ×2 (09:17→21:22)
[2021-01-15] MEDS: CLOPIDOGREL BISULFATE 75 MG TABLET (FP) PO SCH (09:17)
[2021-01-15] MEDS ORDERED: CAPECITABINE 500 MG TABLET PO ONE (10:00)
[2021-01-15] MEDS ORDERED: CAPECITABINE 500 MG TABLET PO SCH (10:00)
[2021-01-15] MEDS: CAPECITABINE 500 MG PO SCH ×2 (10:33→21:34)
[2021-01-15] MEDS: INSULIN SLIDING SCALE (NOVOLOG) 1 VIAL SQ SCH ×2 (11:35→16:15)
[2021-01-15] MEDS: CLOTRIMAZOLE 1% CREAM 15 GM TUBE TP SCH ×2 (13:46→21:22)
[2021-01-15] MEDS: SODIUM CHLORIDE 1,000 ML IV SCH (17:29)
[2021-01-15] MEDS ORDERED: PT OWN MED DRAWER 7, Y5N ONE (20:18)
[2021-01-15] MEDS ORDERED: ALLOPURINOL 300 MG TABLET (FP) PO SCH (22:00)
[2021-01-15] MEDS ORDERED: QUINAPRIL HCL 20 MG TABLET PO SCH (22:00)
[2021-01-15] MEDS ORDERED: ATORVASTATIN CA 40 MG TABLET (FP) PO SCH (22:00)
[2021-01-15] MEDS ORDERED: MONTELUKAST NA 10 MG TABLET PO SCH (22:00)
[2021-01-15] MEDS ORDERED: MOMETASONE FUROATE 220 MCG/IH INHALER IH SCH (22:00)
[2021-01-16] MEDS: INSULIN SLIDING SCALE (NOVOLOG) 1 VIAL SQ SCH ×2 (06:32→11:59)
[2021-01-16 08:03] LABS: HEMOGLOBIN 10.8 GM/dl (11.7-16.9); MCHC 31.8 g/dl (32.0-35.9); MEAN CELL VOLUME 94.5 fl (80-96); MEAN PLT VOLUME 9.2 fl (7.5-11.1); PLATELET COUNT 212 K/MM3 (134-434); WHITE BLOOD COUNT 5.4 K/mm3 (4.0-10.8)
[2021-01-16 08:15] LABS: ALBUMIN 2.4 g/dl (3.4-5.0); CALCIUM 8.6 mg/dl (8.5-10); CREATININE 0.6 mg/dl (0.55-1.3); PHOSPHOROUS 2.2 mg/dl (2.5-4.9); TOT PROT 5.3 g/dl (6.4-8.2)
[2021-01-16 08:36] LABS: ADD RBC MORPHOLOGY YES
[2021-01-16] MEDS ORDERED: PT OWN MED DRAWER 7, Y5N ONE ×2 (09:02→12:51)
[2021-01-16 09:23] VITALS: BP 122/71; PULSE 66; TEMP 98.7
[2021-01-16] MEDS: CLOPIDOGREL BISULFATE 75 MG TABLET (FP) PO SCH (09:24)
[2021-01-16] MEDS: ENOXAPARIN NA (PORCINE) 40 MG/0.4 ML DISP.SYRIN SQ SCH (09:24)
[2021-01-16] MEDS: CAPECITABINE 500 MG PO SCH (09:26)
[2021-01-16] MEDS: CLOTRIMAZOLE 1% CREAM 15 GM TUBE TP SCH (09:26)
[2021-01-16 09:56] LABS: ANISOCYTOSIS 2+
== END 2021-01-16 13:18 | disposition home or self-care (01) | DRG 864 ==
LOC: FER 15:42 → FM/S 17:55
PROVIDERS: ADMIT Internal Medicine; ATTEND Nurse Practitioner Acute Care
DX: R50.81 Fever presenting with conditions classified elsewhere (principal); E87.2 Acidosis; C25.9 Malignant neoplasm of pancreas, unspecified; R50.2 Drug induced fever; E78.5 Hyperlipidemia, unspecified; I25.10 Atherosclerotic heart disease of native coronary artery without angina pectoris; E11.9 Type 2 diabetes mellitus without complications; E87.6 Hypokalemia; R63.4 Abnormal weight loss; I48.91 Unspecified atrial fibrillation; J44.9 Chronic obstructive pulmonary disease, unspecified; B35.3 Tinea pedis; T45.1X5A Adverse effect of antineoplastic and immunosuppressive drugs, initial encounter; I10 Essential (primary) hypertension; Z95.5 Presence of coronary angioplasty implant and graft; Z96.643 Presence of artificial hip joint, bilateral; Z68.25 Body mass index [BMI] 25.0-25.9, adult
CPT/HCPCS: 36415; 71045-TC-FY; 80053; 81003; 81015; 82550; 82962; 83605; 83735; 84100; 84484; 84550; 85025; 85610; 85730; 87040; 87086; 87184; 87804; 93005; 97116-GP; 97162-GP; 99285-25; C9803; J0131; J8521; U0003; U0005

== ENCOUNTER 2021-02-25 20:43 | Emergency (ER) | payer OTHER, BC ==
[2021-02-25 20:52] VITALS: BP 98/60; PULSE 102; BMI 25.7
[2021-02-25] MEDS ORDERED: SODIUM CHLORIDE 1,000 ML IV ONE (21:04)
[2021-02-25 21:49] LABS: HEMATOCRIT 37.2 % (35.4-49); HEMOGLOBIN 11.8 GM/dl (11.7-16.9); MCH 30.8 pg (25.7-33.7); MCHC 31.7 g/dl (32.0-35.9); MEAN CELL VOLUME 97.2 fl (80-96); MEAN PLT VOLUME 9.8 fl (7.5-11.1); PLATELET COUNT 293 K/MM3 (134-434); RBC 3.82 M/mm3 (4.00-5.60); RDW 20.6 % (11.9-15.9); WHITE BLOOD COUNT 11.9 K/mm3 (4.0-10.8)
[2021-02-25 22:05] LABS: ALBUMIN 2.3 g/dl (3.4-5.0); BILIRUBIN,TOTAL 1.1 mg/dl (0.2-1); TOT PROT 5.8 g/dl (6.4-8.2)
[2021-02-25 22:34] LABS: ANISOCYTOSIS 3+; MACROCYTOSIS 1+; PLATELET ESTIMATE ADEQUATE
[2021-02-25 23:32] LABS: LACTIC ACID 3.1 mmol/L (0.4-2.0)
[2021-02-26 00:55] VITALS: TEMP 98.6
== END 2021-02-26 01:26 | disposition home or self-care (01) ==
LOC: FER 20:43
DX: R50.9 Fever, unspecified (principal); Z11.52 Encounter for screening for COVID-19
CPT/HCPCS: 36415; 71045-TC-FY; 80053; 81003; 82550; 83605; 84484; 85025; 87040; 87086; 87186; 99283-25; C9803; U0003; U0005

== ENCOUNTER 2021-03-01 13:55 | Inpatient (IN) | payer OTHER, BC ==
[2021-03-01 15:23] LABS: BASO % 0.3 % (0-2.0); EOS % 0.3 % (0-4.5); HEMATOCRIT 33.4 % (35.4-49); LYMPH % 17.7 % (8-40); MCH 31.2 pg (25.7-33.7); MCHC 32.8 g/dl (32.0-35.9); MEAN PLT VOLUME 10.3 fl (7.5-11.1); MONO % 12.8 % (3.8-10.2); NEUT % 68.9 % (42.8-82.8); PLATELET COUNT 180 K/MM3 (134-434); RBC 3.52 M/mm3 (4.00-5.60); RDW 20.4 % (11.9-15.9); WHITE BLOOD COUNT 4.9 K/mm3 (4.0-10.8)
[2021-03-01] MEDS ORDERED: VANCOMYCIN 1 GM in D5W (PRE-DOCKED) 1,000 MG/250 ML IVPB ONE (16:25)
[2021-03-01] MEDS ORDERED: VANCOMYCIN 1,000 MG VIAL (RESTRICTED TO ID ONLY) ONE (16:38)
[2021-03-01] MEDS ORDERED: CEFEPIME HCL/D5W 1 GM/50 ML BAG IVPB ONE (17:05)
[2021-03-01 17:57] LABS: ALBUMIN 1.3 g/dl (3.4-5.0); ALK PHOS 270 U/L (45-117); BILIRUBIN,TOTAL 4.8 mg/dl (0.2-1); CHLORIDE 64 mmol/L (98-107); CO2 19 mmol/L (21-32); CREATININE 0.8 mg/dl (0.55-1.3); SGOT/AST 39 U/L (15-37); SGPT/ALT 21 U/L (13-61); TOT PROT 3.5 g/dl (6.4-8.2)
[2021-03-01 18:08] LABS: ANION GAP 17 MMOL/L (8-16); GLUCOSE,RANDOM 1770 mg/dl (74-106); SODIUM < 100 mmol/L (136-145)
[2021-03-01 18:09] LABS: CALCIUM 5.3 mg/dl (8.5-10)
[2021-03-01 19:08] LABS: ALBUMIN 2.1 g/dl (3.4-5.0); BILIRUBIN,TOTAL 1.4 mg/dl (0.2-1); CALCIUM 8.2 mg/dl (8.5-10); CREATININE 0.8 mg/dl (0.55-1.3); TOT PROT 5.7 g/dl (6.4-8.2)
[2021-03-01 21:42] VITALS: BMI 25.9
[2021-03-01] MEDS ORDERED: ONDANSETRON *ODT* 4 MG TABLET SL PRN (23:51)
[2021-03-01] MEDS ORDERED: ALBUTEROL SO4 HFA INHALER IH PRN (23:51)
[2021-03-02] MEDS: ALLOPURINOL 300 MG TABLET (FP) PO SCH ×2 (00:24→21:02)
[2021-03-02] MEDS: MONTELUKAST NA 10 MG TABLET PO SCH ×2 (00:24→21:02)
[2021-03-02] MEDS: ALBUTEROL SO4 0.083% IH SOL 2.5 MG/3 ML VIAL.NEB. NEB SCH ×7 (00:24→23:27)
[2021-03-02] MEDS: ATORVASTATIN CA 40 MG TABLET (FP) PO SCH ×2 (00:24→21:01)
[2021-03-02] MEDS: GLIMEPIRIDE 2 MG TABLET PO SCH (06:33)
[2021-03-02] MEDS ORDERED: VANCOMYCIN/WATER 1,250 MG/250 ML BAG IVPB SCH (07:00)
[2021-03-02] MEDS ORDERED: VANCOMYCIN HCL 1,250 MG in SODIUM CHLORIDE 250 ML IVPB SCH (07:30)
[2021-03-02 08:02] LABS: BASO % 0.8 % (0-2.0); EOS % 0.4 % (0-4.5); HEMATOCRIT 33.9 % (35.4-49); HEMOGLOBIN 10.6 GM/dl (11.7-16.9); LYMPH % 23.5 % (8-40); MCH 30.2 pg (25.7-33.7); MCHC 31.2 g/dl (32.0-35.9); MEAN CELL VOLUME 96.8 fl (80-96); MEAN PLT VOLUME 10.5 fl (7.5-11.1); MONO % 13.6 % (3.8-10.2); NEUT % 61.7 % (42.8-82.8); PLATELET COUNT 142 K/MM3 (134-434); RBC 3.51 M/mm3 (4.00-5.60); RDW 19.9 % (11.9-15.9); WHITE BLOOD COUNT 5.6 K/mm3 (4.0-10.8)
[2021-03-02 08:04] LABS: ADD RBC MORPHOLOGY YES
[2021-03-02 08:07] LABS: ALBUMIN 2.1 g/dl (3.4-5.0); BILIRUBIN,TOTAL 1.5 mg/dl (0.2-1); CALCIUM 8.5 mg/dl (8.5-10); CREATININE 0.8 mg/dl (0.55-1.3); TOT PROT 5.5 g/dl (6.4-8.2)
[2021-03-02 09:05] LABS: ANISOCYTOSIS 2+
[2021-03-02 09:06] LABS: PLATELET ESTIMATE ADEQUATE
[2021-03-02] MEDS ORDERED: CEFEPIME HCL 2 GM VIAL (RESTRICTED TO ID) ONE (09:07)
[2021-03-02] MEDS ORDERED: SODIUM CHLORIDE 50 ML IVPB ONE ×2 (09:07→20:39)
[2021-03-02] MEDS: POTASSIUM CHLORIDE TABS 20 MEQ TABLET.ER (FP) PO SCH ×2 (09:12→15:43)
[2021-03-02] MEDS: CLOPIDOGREL BISULFATE 75 MG TABLET (FP) PO SCH (09:12)
[2021-03-02] MEDS ORDERED: PATIENT'S OWN MEDICATION (NON-FORMULARY) (Dapagliflozin Propanediol [Farxiga] 10 MG Tablet PO SCH (10:00)
[2021-03-02] MEDS ORDERED: CEFEPIME IVPB SCH (10:00)
[2021-03-02] MEDS ORDERED: PATIENT'S OWN MEDICATION (NON-FORMULARY) (Budesonide [Pulmicort Flexhaler] 90 MCG Aer.Pow. IH SCH (10:00)
[2021-03-02] MEDS ORDERED: SODIUM CHLORIDE IVPB SCH (10:00)
[2021-03-02] MEDS: INSULIN (NOVOLOG) ASPART 100 UNITS/ML 10ML VIAL SQ SCH ×2 (16:54→21:02)
[2021-03-02] MEDS ORDERED: CEFEPIME HCL/D5W 1 GM/50 ML BAG IVPB SCH (18:00)
[2021-03-02] MEDS ORDERED: CEFEPIME HCL 1 GM VIAL (RESTRICTED TO ID) ONE (20:39)
[2021-03-02] MEDS ORDERED: PT OWN MED DRAWER 7, Y5N ONE (20:53)
[2021-03-02] MEDS: MOMETASONE FUROATE 220 MCG/IH INHALER IH SCH (21:01)
[2021-03-02] MEDS: CEFEPIME IVPB SCH (21:02)
[2021-03-02] MEDS: SODIUM CHLORIDE IVPB SCH (21:02)
[2021-03-03] MEDS: ALBUTEROL SO4 0.083% IH SOL 2.5 MG/3 ML VIAL.NEB. NEB SCH ×5 (03:56→21:00)
[2021-03-03] MEDS: GLIMEPIRIDE 2 MG TABLET PO SCH (06:25)
[2021-03-03] MEDS: INSULIN (NOVOLOG) ASPART 100 UNITS/ML 10ML VIAL SQ SCH ×4 (06:41→21:07)
[2021-03-03] MEDS ORDERED: CEFEPIME HCL 1 GM VIAL (RESTRICTED TO ID) ONE ×2 (08:56→20:47)
[2021-03-03] MEDS ORDERED: SODIUM CHLORIDE 50 ML IVPB ONE ×2 (08:57→20:47)
[2021-03-03] MEDS: CLOPIDOGREL BISULFATE 75 MG TABLET (FP) PO SCH (09:49)
[2021-03-03] MEDS: TORSEMIDE 20 MG TABLET (FP) PO SCH (09:49)
[2021-03-03] MEDS: CEFEPIME IVPB SCH ×2 (09:50→21:07)
[2021-03-03] MEDS: SODIUM CHLORIDE IVPB SCH ×2 (09:50→21:07)
[2021-03-03] MEDS ORDERED: CEFEPIME HCL/D5W 2 GM/50 ML BAG IVPB SCH (10:00)
[2021-03-03 10:43] LABS: BASO % 0.6 % (0-2.0); EOS % 0.9 % (0-4.5); HEMATOCRIT 34.6 % (35.4-49); HEMOGLOBIN 10.9 GM/dl (11.7-16.9); LYMPH % 16.3 % (8-40); MCH 30.6 pg (25.7-33.7); MCHC 31.6 g/dl (32.0-35.9); MEAN CELL VOLUME 96.9 fl (80-96); MEAN PLT VOLUME 9.4 fl (7.5-11.1); NEUT % 69.2 % (42.8-82.8); PLATELET COUNT 129 K/MM3 (134-434); RBC 3.57 M/mm3 (4.00-5.60); RDW 20.5 % (11.9-15.9); WHITE BLOOD COUNT 6.1 K/mm3 (4.0-10.8)
[2021-03-03 11:16] LABS: BILIRUBIN,TOTAL 2.3 mg/dl (0.2-1); CALCIUM 8.6 mg/dl (8.5-10); CREATININE 0.7 mg/dl (0.55-1.3); TOT PROT 5.5 g/dl (6.4-8.2)
[2021-03-03] MEDS ORDERED: oxyCODONE HCL 5 MG TABLET PO PRN (12:27)
[2021-03-03] MEDS ORDERED: ACETAMINOPHEN 325 MG TABLET (FP) PO PRN (12:28)
[2021-03-03] MEDS ORDERED: MUPIROCIN CA 2% TOPICAL CREAM 15 GM TUBE TP SCH (14:00)
[2021-03-03] MEDS: MUPIROCIN 2% TOPICAL OINTMENT 22 GM TUBE TP SCH ×2 (15:47→21:06)
[2021-03-03] MEDS: ENOXAPARIN NA (PORCINE) 40 MG/0.4 ML DISP.SYRIN SQ SCH (15:47)
[2021-03-03] MEDS ORDERED: PT OWN MED DRAWER 7, Y5N ONE (20:48)
[2021-03-03] MEDS: QUINAPRIL HCL 20 MG TABLET PO SCH (21:07)
[2021-03-03] MEDS: ALLOPURINOL 300 MG TABLET (FP) PO SCH (21:07)
[2021-03-03] MEDS: MONTELUKAST NA 10 MG TABLET PO SCH (21:07)
[2021-03-03] MEDS: ATORVASTATIN CA 40 MG TABLET (FP) PO SCH (21:07)
[2021-03-03] MEDS: MOMETASONE FUROATE 220 MCG/IH INHALER IH SCH (21:10)
[2021-03-04] MEDS: ALBUTEROL SO4 0.083% IH SOL 2.5 MG/3 ML VIAL.NEB. NEB SCH ×6 (00:58→20:12)
[2021-03-04] MEDS: GLIMEPIRIDE 2 MG TABLET PO SCH (06:39)
[2021-03-04] MEDS: INSULIN (NOVOLOG) ASPART 100 UNITS/ML 10ML VIAL SQ SCH ×4 (06:40→21:16)
[2021-03-04 08:05] LABS: BASO % 0.3 % (0-2.0); EOS % 1.5 % (0-4.5); HEMOGLOBIN 10.8 GM/dl (11.7-16.9); LYMPH % 15.1 % (8-40); MCH 30.5 pg (25.7-33.7); MCHC 31.6 g/dl (32.0-35.9); MEAN CELL VOLUME 96.3 fl (80-96); MEAN PLT VOLUME 9.7 fl (7.5-11.1); MONO % 15.1 % (3.8-10.2); PLATELET COUNT 152 K/MM3 (134-434); RBC 3.53 M/mm3 (4.00-5.60); WHITE BLOOD COUNT 7.1 K/mm3 (4.0-10.8)
[2021-03-04 08:22] LABS: BILIRUBIN,TOTAL 1.9 mg/dl (0.2-1); CALCIUM 8.3 mg/dl (8.5-10); CREATININE 0.7 mg/dl (0.55-1.3); TOT PROT 5.3 g/dl (6.4-8.2)
[2021-03-04] MEDS ORDERED: POTASSIUM CHLORIDE TABS 20 MEQ TABLET.ER (FP) PO ONE (09:00)
[2021-03-04] MEDS ORDERED: CEFEPIME HCL 1 GM VIAL (RESTRICTED TO ID) ONE ×2 (10:07→21:09)
[2021-03-04] MEDS ORDERED: SODIUM CHLORIDE 50 ML IVPB ONE ×2 (10:08→21:09)
[2021-03-04] MEDS: SODIUM CHLORIDE IVPB SCH ×2 (10:10→21:14)
[2021-03-04] MEDS: CEFEPIME IVPB SCH ×2 (10:10→21:14)
[2021-03-04] MEDS: MUPIROCIN 2% TOPICAL OINTMENT 22 GM TUBE TP SCH ×2 (10:11→21:26)
[2021-03-04] MEDS: ENOXAPARIN NA (PORCINE) 40 MG/0.4 ML DISP.SYRIN SQ SCH (10:11)
[2021-03-04] MEDS: CLOPIDOGREL BISULFATE 75 MG TABLET (FP) PO SCH (10:11)
[2021-03-04] MEDS: LACTOBACILLUS ACIDOPHILUS 1 TABLET PO SCH (12:03)
[2021-03-04] MEDS: PANTOPRAZOLE 40 MG TABLET PO SCH (12:03)
[2021-03-04] MEDS: BACITRACIN 15 GM TUBE TOPICAL OINTMENT TP SCH (13:30)
[2021-03-04] MEDS: MONTELUKAST NA 10 MG TABLET PO SCH (21:15)
[2021-03-04] MEDS: QUINAPRIL HCL 20 MG TABLET PO SCH (21:15)
[2021-03-04] MEDS: ALLOPURINOL 300 MG TABLET (FP) PO SCH (21:15)
[2021-03-04] MEDS: ATORVASTATIN CA 40 MG TABLET (FP) PO SCH (21:15)
[2021-03-04] MEDS: MOMETASONE FUROATE 220 MCG/IH INHALER IH SCH (21:26)
[2021-03-05] MEDS: ALBUTEROL SO4 0.083% IH SOL 2.5 MG/3 ML VIAL.NEB. NEB SCH ×7 (01:03→23:18)
[2021-03-05] MEDS: INSULIN (NOVOLOG) ASPART 100 UNITS/ML 10ML VIAL SQ SCH ×4 (06:29→21:24)
[2021-03-05] MEDS: GLIMEPIRIDE 2 MG TABLET PO SCH (06:29)
[2021-03-05] MEDS ORDERED: CEFEPIME HCL 1 GM VIAL (RESTRICTED TO ID) ONE ×2 (08:59→21:06)
[2021-03-05] MEDS ORDERED: SODIUM CHLORIDE 50 ML IVPB ONE ×2 (09:00→21:06)
[2021-03-05 09:04] LABS: CALCIUM 8.9 mg/dl (8.5-10); CREATININE 0.7 mg/dl (0.55-1.3); TOT PROT 5.5 g/dl (6.4-8.2)
[2021-03-05] MEDS: ENOXAPARIN NA (PORCINE) 40 MG/0.4 ML DISP.SYRIN SQ SCH (09:09)
[2021-03-05] MEDS: CLOPIDOGREL BISULFATE 75 MG TABLET (FP) PO SCH (09:09)
[2021-03-05] MEDS: TORSEMIDE 20 MG TABLET (FP) PO SCH (09:10)
[2021-03-05] MEDS: PANTOPRAZOLE 40 MG TABLET PO SCH (09:10)
[2021-03-05] MEDS: LACTOBACILLUS ACIDOPHILUS 1 TABLET PO SCH (09:11)
[2021-03-05] MEDS: CEFEPIME IVPB SCH ×2 (09:12→21:13)
[2021-03-05] MEDS: MUPIROCIN 2% TOPICAL OINTMENT 22 GM TUBE TP SCH ×2 (09:12→22:25)
[2021-03-05] MEDS: BACITRACIN 15 GM TUBE TOPICAL OINTMENT TP SCH (09:12)
[2021-03-05] MEDS: SODIUM CHLORIDE IVPB SCH ×2 (09:12→21:13)
[2021-03-05] MEDS: ALLOPURINOL 300 MG TABLET (FP) PO SCH (21:14)
[2021-03-05] MEDS: MOMETASONE FUROATE 220 MCG/IH INHALER IH SCH (21:14)
[2021-03-05] MEDS: MONTELUKAST NA 10 MG TABLET PO SCH (21:14)
[2021-03-05] MEDS: QUINAPRIL HCL 20 MG TABLET PO SCH (21:14)
[2021-03-05] MEDS: ATORVASTATIN CA 40 MG TABLET (FP) PO SCH (21:14)
[2021-03-06] MEDS: ALBUTEROL SO4 0.083% IH SOL 2.5 MG/3 ML VIAL.NEB. NEB SCH ×3 (04:00→12:00)
[2021-03-06] MEDS: GLIMEPIRIDE 2 MG TABLET PO SCH (06:46)
[2021-03-06] MEDS: INSULIN (NOVOLOG) ASPART 100 UNITS/ML 10ML VIAL SQ SCH ×2 (06:46→14:51)
[2021-03-06 08:10] LABS: CALCIUM 8.3 mg/dl (8.5-10); CREATININE 0.9 mg/dl (0.55-1.3)
[2021-03-06] MEDS ORDERED: SODIUM CHLORIDE 50 ML IVPB ONE ×2 (09:13→14:54)
[2021-03-06] MEDS ORDERED: CEFEPIME HCL 1 GM VIAL (RESTRICTED TO ID) ONE ×2 (09:13→14:53)
[2021-03-06] MEDS: PANTOPRAZOLE 40 MG TABLET PO SCH (09:20)
[2021-03-06] MEDS: CLOPIDOGREL BISULFATE 75 MG TABLET (FP) PO SCH (09:20)
[2021-03-06] MEDS: ENOXAPARIN NA (PORCINE) 40 MG/0.4 ML DISP.SYRIN SQ SCH (09:20)
[2021-03-06] MEDS: CEFEPIME IVPB SCH (09:20)
[2021-03-06] MEDS: SODIUM CHLORIDE IVPB SCH (09:20)
[2021-03-06] MEDS: LACTOBACILLUS ACIDOPHILUS 1 TABLET PO SCH (09:30)
[2021-03-06] MEDS: MUPIROCIN 2% TOPICAL OINTMENT 22 GM TUBE TP SCH (12:00)
[2021-03-06 14:09] VITALS: BP 98/63; PULSE 93; TEMP 99
[2021-03-06] MEDS: BACITRACIN 15 GM TUBE TOPICAL OINTMENT TP SCH (14:52)
== END 2021-03-06 15:38 | disposition home or self-care (01) | DRG 315 ==
LOC: FER 13:55 → FM/S 20:37
PROVIDERS: ATTEND Nurse Practitioner Acute Care
PROC: 05PYX3Z Removal of Infusion Device from Upper Vein, External Approach (ICD-10-PCS; principal; 2021-03-02)
DX: T80.211A Bloodstream infection due to central venous catheter, initial encounter (principal); C25.9 Malignant neoplasm of pancreas, unspecified; R78.81 Bacteremia; I50.32 Chronic diastolic (congestive) heart failure; I10 Essential (primary) hypertension; E78.5 Hyperlipidemia, unspecified; I25.10 Atherosclerotic heart disease of native coronary artery without angina pectoris; E11.9 Type 2 diabetes mellitus without complications; J44.9 Chronic obstructive pulmonary disease, unspecified; B96.1 Klebsiella pneumoniae [K. pneumoniae] as the cause of diseases classified elsewhere; Z95.5 Presence of coronary angioplasty implant and graft; Y83.9 Surgical procedure, unspecified as the cause of abnormal reaction of the patient, or of later complication, without mention of misadventure at the time of the procedure; M10.9 Gout, unspecified; E87.6 Hypokalemia
CPT/HCPCS: 36415; 70450-TC; 71045-TC-FY; 80048; 80053; 81003; 82962; 83735; 85025; 87040; 87070; 87086; 93005; 93306-TC; 94640; 97116-GP; 97162-GP; 99285-25; C9803; U0003; U0005

== ENCOUNTER 2021-04-10 02:54 | Inpatient (IN) | payer OTHER, BC ==
[2021-04-10] MEDS ORDERED: morphine CARPU-JECT 4 MG/1 ML DISP.SYRIN IVPUSH ONE ×2 (03:10→07:50)
[2021-04-10] MEDS ORDERED: ONDANSETRON 4 MG/2 ML VIAL IVPUSH ONE ×2 (03:10→07:50)
[2021-04-10] MEDS ORDERED: SODIUM CHLORIDE 500 ML IV STA ×2 (03:11→04:34)
[2021-04-10] MEDS ORDERED: ONDANSETRON 4 MG/2 ML VIAL ONE ×2 (03:23→07:51)
[2021-04-10] MEDS ORDERED: morphine SULFATE 4 MG/ML VIAL ONE ×2 (03:23→07:51)
[2021-04-10 03:59] LABS: BASO % 1.4 % (0-2.0)
[2021-04-10 04:20] LABS: EOS % 0.2 % (0-4.5); HEMATOCRIT 34.7 % (35.4-49); HEMOGLOBIN 11.5 GM/dL (11.7-16.9); LYMPH % 28.5 % (8-40); MCH 30.4 pg (25.7-33.7); MCHC 33.1 g/dl (32.0-35.9); MEAN CELL VOLUME 91.8 fl (80-96); MEAN PLT VOLUME 11.5 fl (7.5-11.1); MONO % 1.2 % (3.8-10.2); NEUT % 68.7 % (42.8-82.8); PLATELET COUNT 71 10^3/uL (134-434); RBC 3.79 M/mm3 (4.00-5.60); RDW 20.2 % (11.9-15.9)
[2021-04-10 04:21] LABS: CHLORIDE 100 mmol/L (98-107); SODIUM 139 mmol/L (136-145)
[2021-04-10 04:24] LABS: ALBUMIN 1.6 g/dl (3.4-5.0); ANION GAP 12 MMOL/L (8-16); CALCIUM 8.4 mg/dL (8.5-10.1); CO2 27 mmol/L (21-32); LIPASE 531 U/L (73-393)
[2021-04-10 04:25] LABS: GLUCOSE,RANDOM 334 mg/dL (74-106)
[2021-04-10 04:27] LABS: CREATININE 1.6 mg/dL (0.55-1.3); SGOT/AST 105 U/L (15-37); SGPT/ALT 41 U/L (13-61)
[2021-04-10 04:28] LABS: WHITE BLOOD COUNT 0.7 K/mm3 (4.0-10.0)
[2021-04-10 04:29] LABS: BILIRUBIN,TOTAL 1.7 mg/dL (0.2-1)
[2021-04-10 04:30] LABS: ALK PHOS 529 U/L (45-117)
[2021-04-10 04:34] LABS: BLOOD UREA NITROGEN 108.3 mg/dL (7-18)
[2021-04-10] MEDS ORDERED: ACETAMINOPHEN 1000 MG/100 ML VIAL (NON FORMULARY) IVPB ONE (06:12)
[2021-04-10] MEDS ORDERED: ACETAMINOPHEN INJECTION 100 ML IVPB ONE (06:15)
[2021-04-10 06:16] LABS: ANISOCYTOSIS 1+; MACROCYTOSIS 1+; PLATELET ESTIMATE DECREASED
[2021-04-10 06:55] LABS: EPI CELLS 12 /uL (0-25.1); HYALINE CASTS 7 /uL (0-3.1); URINE APPEARANCE CLOUDY; URINE BACTERIA 9 /uL (0-1359); URINE BILIRUBIN NEGATIVE (NEGATIVE); URINE COLOR YELLOW; URINE GLUCOSE (UA) 2+ (NEGATIVE); URINE KETONE NEGATIVE (NEGATIVE); URINE LEUK ESTERASE NEGATIVE (NEGATIVE); URINE NITRITE NEGATIVE (NEGATIVE); URINE PROTEIN 1+ (NEGATIVE); URINE UROBILINOGEN 0.2 mg/dL (0.2-1.0); URINE WBC 4 /uL (0-25.8)
[2021-04-10] MEDS ORDERED: ALBUTEROL SO4 HFA INHALER IH PRN (07:18)
[2021-04-10] MEDS ORDERED: ONDANSETRON *ODT* 4 MG TABLET SL PRN (07:18)
[2021-04-10] MEDS ORDERED: oxyCODONE HCL 5 MG TABLET PO PRN (07:30)
[2021-04-10] MEDS ORDERED: ACETAMINOPHEN 325 MG TABLET (FP) PO PRN (07:30)
[2021-04-10] MEDS ORDERED: morphine CARPU-JECT 2 MG/1 ML DISP.SYRIN IVPUSH ONE (07:59)
[2021-04-10 08:47] VITALS: BMI 24.3
[2021-04-10 08:57] LABS: YEAST NONE SEEN (NEGATIVE)
[2021-04-10 08:58] LABS: URINE RBC 21.1 /uL (0-23.9)
[2021-04-10] MEDS: ALBUTEROL SO4 0.083% IH SOL 2.5 MG/3 ML VIAL.NEB. NEB SCH ×3 (09:39→16:39)
[2021-04-10] MEDS ORDERED: CLOPIDOGREL BISULFATE 75 MG TABLET (FP) PO SCH (10:00)
[2021-04-10 10:51] LABS: ALBUMIN 1.5 g/dl (3.4-5.0); BILIRUBIN,TOTAL 1.9 mg/dl (0.2-1); CALCIUM 7.6 mg/dl (8.5-10); CREATININE 1.8 mg/dl (0.55-1.3); MAGNESIUM 2.5 mg/dL (1.8-2.4)
[2021-04-10] MEDS ORDERED: SODIUM CHLORIDE 1,000 ML IV SCH (11:45)
[2021-04-10] MEDS ORDERED: morphine SULFATE 4 MG/ML VIAL IVPUSH ONE (11:45)
[2021-04-10 11:51] VITALS: BP 98/57; PULSE 97; TEMP 97.5
[2021-04-10] MEDS ORDERED: HEPARIN NA (PORCINE) 5,000 UNITS/ML 1ML VIAL SQ SCH (14:00)
[2021-04-10 14:33] LABS: LACTIC ACID 4.4 mmol/L (0.4-2.0)
[2021-04-10] MEDS ORDERED: morphine SULFATE 4 MG/ML VIAL IVPUSH PRN (15:09)
[2021-04-10] MEDS ORDERED: INSULIN SLIDING SCALE (NOVOLOG) 1 VIAL SQ SCH (16:30)
[2021-04-10] MEDS ORDERED: MONTELUKAST NA 10 MG TABLET PO SCH (22:00)
[2021-04-10] MEDS ORDERED: MOMETASONE FUROATE 220 MCG/IH INHALER IH SCH (22:00)
[2021-04-10] MEDS ORDERED: ALLOPURINOL 300 MG TABLET (FP) PO SCH (22:00)
[2021-04-10] MEDS ORDERED: ATORVASTATIN CA 40 MG TABLET (FP) PO SCH (22:00)
== END 2021-04-10 19:10 | disposition short-term general hospital (02) | DRG 435 ==
LOC: FER 02:54 → FM/S 06:42
PROVIDERS: ADMIT Hospitalist; ATTEND Nurse Practitioner Acute Care
PROC: 0D9670Z Drainage of Stomach with Drainage Device, Via Natural or Artificial Opening (ICD-10-PCS; principal; 2021-04-10)
DX: C25.9 Malignant neoplasm of pancreas, unspecified (principal); E43 Unspecified severe protein-calorie malnutrition; N17.9 Acute kidney failure, unspecified; E87.2 Acidosis; K31.1 Adult hypertrophic pyloric stenosis; I50.32 Chronic diastolic (congestive) heart failure; I25.10 Atherosclerotic heart disease of native coronary artery without angina pectoris; J44.9 Chronic obstructive pulmonary disease, unspecified; I11.0 Hypertensive heart disease with heart failure; R11.2 Nausea with vomiting, unspecified; E78.5 Hyperlipidemia, unspecified; E11.9 Type 2 diabetes mellitus without complications; D70.9 Neutropenia, unspecified; E86.0 Dehydration; D70.1 Agranulocytosis secondary to cancer chemotherapy; Z68.24 Body mass index [BMI] 24.0-24.9, adult; Z95.5 Presence of coronary angioplasty implant and graft
CPT/HCPCS: 36415; 71045-TC-FY; 71250-TC; 74176-TC; 80053; 81003; 82550; 82962; 83605; 83690; 83735; 84484; 85025; 87040; 87086; 87186; 93005; 94640; 97116-GP; 97162-GP; 99285-25; C9803; J0131; J1644; U0003; U0005